=== PATIENT | female | born 1950 | race Caucasian/White ===

== ENCOUNTER 2017-07-08 15:27 | Observation (INO) | payer OTHER, BC ==
[2017-07-08 17:06] LABS: BASOPHILS # (AUTO) 0.1 X10^3/uL (0.0-0.1); BASOPHILS % (AUTO) 0.3 % (0.2-1.0); EOSINOPHILS # (AUTO) 0.3 x10^3/uL (0.0-0.2); EOSINOPHILS % (AUTO) 1.7 % (0.9-2.9); HEMATOCRIT 34.5 % (36.0-47.0); HEMOGLOBIN 11.2 g/dL (12.0-16.0); LYMPHOCYTES # (AUTO) 1.8 X10^3/uL (1.3-2.9); LYMPHOCYTES % (AUTO) 11.4 % (21.0-51.0); MEAN CORPUSCULAR HEMOGLOBIN 25.1 pg (27.0-34.0); MEAN CORPUSCULAR HGB CONC 32.3 g/dL (33.0-35.0); MEAN CORPUSCULAR VOLUME 77.5 fL (80.0-100.0); MEAN PLATELET VOLUME 8.2 fL (7.4-11.0); MONOCYTES # (AUTO) 0.9 x10^3/uL (0.3-0.8); MONOCYTES % (AUTO) 5.8 % (0.0-13.0); NEUTROPHILS % (AUTO) 80.8 % (42.0-75.0); PLATELET COUNT 618 X10^3/uL (150.0-450.0); RED BLOOD COUNT 4.45 X10^6/uL (3.5-5.4); RED CELL DISTRIBUTION WIDTH 16.1 % (11.6-16.5); WHITE BLOOD COUNT 16.1 X10^3/uL (3.6-10.0)
[2017-07-08 17:10] LABS: ALANINE AMINOTRANSFERASE 25 Units/L (12-78); ALBUMIN 3.5 g/dL (3.4-5.0); ALKALINE PHOSPHATASE 110 Units/L (46-116); ASPARTATE AMINO TRANSFERASE 23 Units/L (15-37); BLOOD UREA NITROGEN 14 mg/dL (7-18); CALCIUM 9.4 mg/dL (8.5-10.1); CARBON DIOXIDE 29.6 mmol/L (21-32); CHLORIDE 99 mmol/L (98-107); CREATININE 0.94 mg/dL (0.55-1.02); SODIUM 137 mmol/L (136-145); TOTAL PROTEIN 8.5 g/dL (6.4-8.2); eGFR BLACK RACES > 60 (>60); eGFR NON BLACK RACES > 60 (>60)
[2017-07-08 17:12] LABS: PLATELET MORPHOLOGY COMMENT NORMAL (NORMAL); POIKILOCYTOSIS SLIGHT
[2017-07-08 17:22] LABS: CKMB % 2.2 % (<4); CREATINE KINASE 46 Units/L (26-192); CREATINE KINASE MB < 1.0 ng/mL (0-4.0); TROPONIN I < 0.02 ng/mL (0-1.5)
--- NOTE | 2017-07-08 17:41 | RAD ---
HISTORY: Headache. Dizziness. Chest pain. Study: Chest one view Comparison: January 12, 2015. Findings: The trachea is midline. The cardiac silhouette is unremarkable. The lungs are clear without focal i nfiltrate or effusion. The bony thorax is unremarkable. IMPRESSION: 1. No acute cardiopulmonary disease. Reported By:
[2017-07-08] MEDS ORDERED: AMBIEN PO PRN (18:53)
[2017-07-08] MEDS: PEPCID TAB 20 MG PO SCH (21:51)
[2017-07-08 22:37] LABS: CREATINE KINASE 43 Units/L (26-192)
[2017-07-08 22:39] LABS: CKMB % 2.3 % (<4); CREATINE KINASE MB < 1.0 ng/mL (0-4.0); TROPONIN I < 0.02 ng/mL (0-1.5)
[2017-07-09 05:46] LABS: CHOL/HDL RATIO 4.9 (0.0-5.0); CHOLESTEROL 191 mg/dL (0-200); CKMB % 2.7 % (<4); CREATINE KINASE 37 Units/L (26-192); CREATINE KINASE MB < 1.0 ng/mL (0-4.0); HDL CHOLESTEROL 39 mg/dL (40-60); TRIGLYCERIDES 129 mg/dL (0-150); TROPONIN I < 0.02 ng/mL (0-1.5)
[2017-07-09 07:58] LABS: BASOPHILS # (AUTO) 0.1 X10^3/uL (0.0-0.1); BASOPHILS % (AUTO) 0.5 % (0.2-1.0); EOSINOPHILS # (AUTO) 0.2 x10^3/uL (0.0-0.2); EOSINOPHILS % (AUTO) 2.1 % (0.9-2.9); HEMATOCRIT 29.8 % (36.0-47.0); HEMOGLOBIN 9.6 g/dL (12.0-16.0); LYMPHOCYTES # (AUTO) 2.4 X10^3/uL (1.3-2.9); LYMPHOCYTES % (AUTO) 22.5 % (21.0-51.0); MEAN CORPUSCULAR HEMOGLOBIN 24.8 pg (27.0-34.0); MEAN CORPUSCULAR HGB CONC 32.3 g/dL (33.0-35.0); MEAN CORPUSCULAR VOLUME 76.6 fL (80.0-100.0); MEAN PLATELET VOLUME 8.7 fL (7.4-11.0); MONOCYTES # (AUTO) 0.8 x10^3/uL (0.3-0.8); NEUTROPHILS % (AUTO) 66.9 % (42.0-75.0); PLATELET COUNT 460 X10^3/uL (150.0-450.0); RED BLOOD COUNT 3.89 X10^6/uL (3.5-5.4); WHITE BLOOD COUNT 10.5 X10^3/uL (3.6-10.0)
[2017-07-09 08:05] LABS: ALANINE AMINOTRANSFERASE 22 Units/L (12-78); ALBUMIN 2.9 g/dL (3.4-5.0); ALKALINE PHOSPHATASE 85 Units/L (46-116); ASPARTATE AMINO TRANSFERASE 29 Units/L (15-37); BLOOD UREA NITROGEN 13 mg/dL (7-18); CALCIUM 8.8 mg/dL (8.5-10.1); CARBON DIOXIDE 24.9 mmol/L (21-32); CHLORIDE 102 mmol/L (98-107); COR CA(FOR HYPOALB) 9.7 mg/dL (8.5-10.1); CREATININE 0.73 mg/dL (0.55-1.02); SODIUM 137 mmol/L (136-145); TOTAL PROTEIN 7.2 g/dL (6.4-8.2); eGFR BLACK RACES > 60 (>60); eGFR NON BLACK RACES > 60 (>60)
[2017-07-09 08:15] LABS: HYPOCHROMASIA SLIGHT; PLATELET MORPHOLOGY COMMENT ABNORMAL (NORMAL)
[2017-07-09 08:16] LABS: ANISOCYTOSIS SLIGHT; MICROCYTOSIS SLIGHT
[2017-07-09] MEDS: PEPCID TAB 20 MG PO SCH ×2 (08:20→22:13)
[2017-07-09 14:14] VITALS: BMI 25.5
--- NOTE | 2017-07-09 14:45 | DR.H&P ---
H&P - History & Physical for Day of: H&P Date: 07/08/17 - Chief Complaint Chief Complaint: DIZZINESS, HYPERTENSION, N/V - Allergies Allergies/Adverse Reactions: Allergies Allergy/AdvReac Type Severity Reaction Status Date / Time metoclopramide [From Reglan] Allergy Verified 07/08/17 16:51 Penicillins Allergy Verified 07/08/17 16:51 Sulfa (Sulfonamide Allergy Verified 07/08/17 16:51 Antibiotics) [SULFA] - History of Present Illness History of Present Illness: 67 WF DIRECT ADMIT FROM DR MARINELLI OFFICE WITH CO ELEVATED BP AND DIZZINESS, N/V. PT STATES SHE FEELS WEAK, JUST DONT FEEL RIGHT. PT HAS PMH OF CAD, HTN, OA. PLAN TO ADMIT FOR BP MONITORING, SERIAL CE, EKG - Past Medical History Past Medical History: Angina, Arthritis, Coronary Artery Disease, GERD, Hypertension, Hypothyroidism - Past Surgical History Surgical History: Hysterectomy, Other - Family History Family Medical History: [place], Coronary Artery Disease, Sudden Cardiac , Hypertension - Social History Does patient currently use any type of tobacco product: No Have you used tobacco products in the last 12 months: No Type of Tobacco Use: None How many years tobacco product used: 3 Does any household member use tobacco: No Alcohol Use: None Drug Use: None - Medications Home Medications: Duloxetine HCl 60 mg PO DAILY 07/08/17 [History Confirmed 07/08/17] Zolpidem Tartrate [Zolpidem Tartrate] 10 mg PO HS 07/08/17 [History Confirmed ] Hydrocodone-Acet 7.5 mg/325 mg [NORCO 7.5 MG/325 MG *] 1 tab PO BID PRN [History Confirmed 07/09/17] Lidocaine/Benadryl/Maalox [Magic Mouthwash] 5 ml MT TID PRN 07/09/17 [History Confirmed 07/09/17] - Review of Systems Constitutional: Weakness Eyes: No Symptoms Reported ENT: No Symptoms Reported Respiratory: No Symptoms Reported Cardiovascular: Palpitations Gastrointestinal: Nausea, Vomiting Genitourinary: No Symptoms Reported Musculoskeletal: Back Pain Skin: No Symptoms Reported Neurological: Other (DIZZY) - Physical Exam Vital Signs: Temperature 97.8 F Pulse Rate [Left Radial] 86 Respiratory Rate 20 Blood Pressure [Left Arm] 148/78 Blood Pressure [Right Arm] 130/67 Blood Pressure 179/97 O2 Sat by Pulse Oximetry 93 Oriented: Normal Eyes: Normal Ear: Normal Nose: Normal Throat: Normal Respiratory: RLL Diminished, LLL Diminished Cardiovascular: Normal : Normal Auscultation: Bowel Sounds: Increased Tenderness: RUQ, Epigastric Skin: Normal Musculoskeletal: Back:Lumbar Mood Description: Calm Speech Pattern: Clear - Assessment/Plan (1) Dizziness and giddiness Status: Acute Plan: ADMIT, BP MONITORING. SERIAL EKG'S CE, CXR ON ADMISSION. CTA CAROTID ARTERIES. RESUME HOME MEDS AFTER CONFIRMATION (2) Hypertension Status: Acute (3) Weakness Status: Acute (4) N&V (nausea and vomiting) Status: Acute
[2017-07-09 15:08] LABS: AMYLASE 36 Units/L (25-115); LIPASE 103 Units/L (73-393)
--- NOTE | 2017-07-09 15:32 | CT ---
History: Dizziness and headache Study: CT head without contrast. Sagittal and coronal reformations were provided. Comparison: None Findings: The ventricles and sulci are normal in size and configuration. There is no intracranial hem orrhage or mass or edema and there is no subdural collection of fluid. The calvarium is intact and th e paranasal sinuses and mastoid sinuses are clear. Impression: Negative Reported By:
--- NOTE | 2017-07-09 15:41 | CT ---
History: Dizziness and history of angioplasty Study: CTA of the carotid arteries. Three-dimensional MIPS were displayed in multiple degrees of obli quity. Sagittal and coronal and oblique reformations were provided. Study done before after intraveno us contrast. Findings: There is no abnormal contrast enhancement in the visualized brain. The [place] of [place] is unremarkable. No aneurysm or malformation is demonstrated. The left vertebral artery is dominant. The right common carotid artery is tortuous without stenosis. The left common carotid artery is less tor turous in the right without stenosis. There is mild calcified plaque formation at the origin of the r ight internal carotid artery medially and posteriorly. The left common carotid bifurcation is unremar kable with a tiny calcified plaque. Both internal carotid arteries are tortuous. Impression: 1. Tortuous bilateral internal and common carotid arteries 2. Small calcified plaque at the origin of the right internal carotid artery. No significant stenosis is demonstrated. 3. Patent vertebral arteries, left dominant. Reported By:
[2017-07-09] MEDS: NORCO 7.5/325 MG TAB PO PRN (16:56)
[2017-07-09 17:08] LABS: BILIRUBIN,URINE NEGATIVE (NEGATIVE); BLOOD/HEMOGLOBIN,URINE 2+ (NEGATIVE); GLUCOSE, URINE NEGATIVE (NEGATIVE); KETONES,URINE NEGATIVE (NEGATIVE); LEUKOCYTE ESTERASE ,URINE NEGATIVE (NEGATIVE); NITRITES,URINE NEGATIVE (NEGATIVE); PROTEIN,URINE 2+ (NEGATIVE); UROBILINOGEN,URINE NORMAL (NORMAL)
[2017-07-09 17:26] LABS: APPEARANCE,URINE HAZY (CLEAR); COLOR,URINE YELLOW (YELLOW)
[2017-07-09 17:27] LABS: BACTERIA,URINE NEGATIVE /HPF (NEGATIVE); RBC,URINE 0 - 3 /HPF (NEGATIVE); SQUAMOUS EPITHELIAL CELL,UR NUMEROUS /HPF (NEGATIVE)
--- NOTE | 2017-07-09 22:00 | US ---
Right Upper Quadrant Sonogram Indication: Right upper quadrant pain and vomiting Comparison: None available Technique: Multiple ríos scale and color flow Doppler images of the right upper quadrant were obtaine d. Findings: The liver is normal in echotexture and size. No focal intraparenchymal mass or intrahepatic biliary ductal dilatation can be observed. The gallbladder fails to demonstrate evidence for cholelithiasis or layering sludge.No pericholecysti c fluid or gallbladder wall thickening can be observed. The common bile duct is unremarkable measuring 5mm. The right kidney appears normal in size without focal parenchymal mass or nephrolithiasis. The right kidney measurers 9.6 cm. No hydronephrosis or perirenal fluid can be observed. The pancreatic head and body are unremarkable. IMPRESSION: 1. Unremarkable examination of the right upper quadrant. Reported By:
[2017-07-09] MEDS: COREG TAB 12.5 MG PO SCH (22:13)
[2017-07-10 06:34] LABS: BASOPHILS # (AUTO) 0.1 X10^3/uL (0.0-0.1); BASOPHILS % (AUTO) 0.8 % (0.2-1.0); EOSINOPHILS # (AUTO) 0.2 x10^3/uL (0.0-0.2); EOSINOPHILS % (AUTO) 1.8 % (0.9-2.9); HEMATOCRIT 30.4 % (36.0-47.0); HEMOGLOBIN 9.8 g/dL (12.0-16.0); LYMPHOCYTES # (AUTO) 2.4 X10^3/uL (1.3-2.9); LYMPHOCYTES % (AUTO) 27.2 % (21.0-51.0); MEAN CORPUSCULAR HEMOGLOBIN 24.7 pg (27.0-34.0); MEAN CORPUSCULAR HGB CONC 32.2 g/dL (33.0-35.0); MEAN CORPUSCULAR VOLUME 76.7 fL (80.0-100.0); MEAN PLATELET VOLUME 8.5 fL (7.4-11.0); MONOCYTES # (AUTO) 0.8 x10^3/uL (0.3-0.8); MONOCYTES % (AUTO) 9.1 % (0.0-13.0); NEUTROPHILS # (AUTO) 5.4 x10^3/uL (2.2-4.8); NEUTROPHILS % (AUTO) 61.1 % (42.0-75.0); PLATELET COUNT 428 X10^3/uL (150.0-450.0); RED BLOOD COUNT 3.97 X10^6/uL (3.5-5.4); RED CELL DISTRIBUTION WIDTH 16.1 % (11.6-16.5); WHITE BLOOD COUNT 8.8 X10^3/uL (3.6-10.0)
[2017-07-10 06:49] LABS: ALANINE AMINOTRANSFERASE 22 Units/L (12-78); ALKALINE PHOSPHATASE 84 Units/L (46-116); ASPARTATE AMINO TRANSFERASE 23 Units/L (15-37); BLOOD UREA NITROGEN 16 mg/dL (7-18); CALCIUM 9.1 mg/dL (8.5-10.1); CARBON DIOXIDE 28.3 mmol/L (21-32); CHLORIDE 104 mmol/L (98-107); COR CA(FOR HYPOALB) 9.9 mg/dL (8.5-10.1); CREATININE 0.79 mg/dL (0.55-1.02); SODIUM 139 mmol/L (136-145); TOTAL PROTEIN 7.2 g/dL (6.4-8.2); eGFR BLACK RACES > 60 (>60); eGFR NON BLACK RACES > 60 (>60)
[2017-07-10 06:52] LABS: PLATELET MORPHOLOGY COMMENT NORMAL (NORMAL)
[2017-07-10 06:53] LABS: HYPOCHROMASIA SLIGHT; MICROCYTOSIS SLIGHT
[2017-07-10] MEDS ORDERED: SYNTHROID 25 mcg TAB PO SCH (09:00)
[2017-07-10] MEDS ORDERED: CARDIZEM SR 120 MG PO SCH (09:00)
[2017-07-10] MEDS ORDERED: CYMBALTA PO SCH (09:00)
[2017-07-10] MEDS ORDERED: COZAAR PO SCH (09:00)
[2017-07-10] MEDS ORDERED: ASPIRIN EC 81 MG PO SCH (09:00)
[2017-07-10] MEDS ORDERED: NexIUM PO SCH (09:00)
[2017-07-10] MEDS: PEPCID TAB 20 MG PO SCH (10:41)
[2017-07-10] MEDS: NORCO 7.5/325 MG TAB PO PRN (10:42)
[2017-07-10] MEDS: COREG TAB 12.5 MG PO SCH (10:42)
[2017-07-10 13:27] VITALS: BP 145/72
== END 2017-07-10 16:25 | disposition home or self-care (01) ==
LOC: MED/SURG 15:27
PROVIDERS: ADMIT Internal Medicine; ATTEND Internal Medicine
DX: R42 Dizziness and giddiness (principal); I10 Essential (primary) hypertension; R11.2 Nausea with vomiting, unspecified; I25.10 Atherosclerotic heart disease of native coronary artery without angina pectoris; K21.9 Gastro-esophageal reflux disease without esophagitis; M13.89 Other specified arthritis, multiple sites; R94.31 Abnormal electrocardiogram [ECG] [EKG]; R79.1 Abnormal coagulation profile; D72.828 Other elevated white blood cell count; D64.89 Other specified anemias
CPT/HCPCS: 36415; 70450; 70498; 71045; 76705; 80053; 80061; 81001; 82150; 82550; 82553; 83690; 83735; 84484; 85025; 85610; 85730; 93005; 93010; 94760; A4216; A4222; G0378

== ENCOUNTER → 2017-08-10 | Outpatient (CLI) | payer OTHER ==
--- NOTE | 2017-08-10 12:15 | NM ---
Nuclear medicine HIDA scan with ejection fraction Indication: Abdominal pain Comparison: Ultrasound performed on 07/09/2017 Technique: Multiple scintigraphic images of the abdomen were obtained the intravenous administration of 5.5 mCi of technetium labeled Choletec. Following distention of the gallbladder with radiotracer a 8 oz of oral Ensure was administered. Findings: Homogeneous uptake of radiotracer is seen throughout the liver. This intrabiliary ductal system is o bserved normally. The common hepatic and common bile duct grossly appear unremarkable with normal bi liary-bowel transit. The gallbladder is observed to fill normally. Ejection fraction was 22% after oral administration of Ensure. IMPRESSION: 1. Normal hepatobiliary imaging scan. 2. Decreased gallbladder ejection fraction suggests biliary dyskinesia. Reported By:
== END ==
LOC: RAD 09:11
PROVIDERS: ATTEND Nurse Practitioner Family
DX: R10.84 Generalized abdominal pain (principal)
CPT/HCPCS: 78227; A9537

== ENCOUNTER 2018-01-11 10:40 | Inpatient (IN) ==
[2018-01-11] MEDS ORDERED: CARDIZEM INJ 125 MG VIAL 125 MG in NS 100 ML IV 100 ML IV PRN (11:51)
[2018-01-11 11:53] VITALS: BMI 31.3
--- NOTE | 2018-01-11 11:54 | DR.H&P ---
H&P - History & Physical for Day of: H&P Date: 01/11/18 - Chief Complaint Chief Complaint: sob, weakness, passing out, dizziness - History of Present Illness History of Present Illness: 67 WF DIRECT ADMIT FROM DR MARINELLI OFFICE WITH CO INCREASED SOB, DIZZINESS AND PALPITATIONS. PT WAS PALE AND DIAPHORETIC ON ARRIVAL, EKG REVEALED AFIB RVR RATE 150. PT HAS HX OF AFIB, ON CORGEG, CARDIZEM AND XARELTO. RECENTLY STARTED ON MULTAQ PER DR HOLDEN [employer]ATION DIRECTOR. PT STATES SHE HAS FAINTED MULTPLE TIMES AND "FEELS TERRIBLE" PT HAS PMH OF CAD, OA, HTN, AFIB, [place]. PT ADMITTED FOR TREATMENT AND EVALUATION OF SOB, AFIB WITH RVR - Past Medical History Past Medical History: Angina, Arthritis, Coronary Artery Disease, GERD, Hypertension, Hypothyroidism - Past Surgical History Surgical History: Hysterectomy - Family History Family Medical History: Diabetes Mellitus, Cancer, [place], Hypertension - Social History Does patient currently use any type of tobacco product: No Have you used tobacco products in the last 12 months: No Type of Tobacco Use: Cigarettes How many years tobacco product used: 25 Alcohol Use: None Drug Use: None - Medications Home Medications: metoclopramide [From Reglan] Allergy (Verified 01/11/18 11:33) Penicillins Allergy (Verified 01/11/18 11:33) Sulfa (Sulfonamide Antibiotics) [SULFA] Allergy (Verified 01/11/18 11:33) CONTINUE taking the following medications pantoprazole [Protonix] 1 tab PO DAILY 01/11/18 [History] pravastatin 1 tab PO HS 01/11/18 [History] propafenone 1 tab PO BID 01/11/18 [History] zolpidem [Ambien] 1 tab PO HS 01/11/18 [History] - Review of Systems Constitutional: Weakness Eyes: No Symptoms Reported ENT: No Symptoms Reported Respiratory: SOB with Excertion Cardiovascular: Palpitations, Light Headedness Gastrointestinal: Nausea, Vomiting Genitourinary: No Symptoms Reported Musculoskeletal: Back Pain Skin: No Symptoms Reported Neurological: Weakness - Physical Exam Vital Signs: Temperature 97.2 F Pulse Rate [Apical] 81 Respiratory Rate 15 Blood Pressure [Left Arm] 120/58 Blood Pressure [Right Arm] 132/63 Blood Pressure 152/90 O2 Sat by Pulse Oximetry 99 Oriented: Normal Eyes: Normal Ear: Normal Nose: Normal Throat: Normal Respiratory: RLL Diminished, LLL Diminished Cardiovascular: Tachycardia, Irregular : Normal Auscultation: Bowel Sounds: Normal Palpation: Normal Tenderness: Normal Skin: Diaphoresis Musculoskeletal: Back:Lumbar Psychiatric: Anxiety Affect: Anxious Speech Pattern: Clear, Appropriate - Assessment/Plan (1) Chronic atrial fibrillation with RVR Status: Acute Plan: ADMIT ICU, SERIAL CE AND EKG'S. CONTINUOUS CARDIAC MONITORING. SUPPLEMENTAL O2, CXR ON ADMISSION. VERIFY HOME MEDS, CONTINUE XARELTO. I & OS , STATIN THERAPY, AM LIPIDS. ANEMIA PANEL, OCCULT STOOL (2) Syncope Status: Acute (3) SOB (shortness of breath) Status: Acute (4) Hypertension Status: Chronic (5) Dizziness and giddiness Status: Acute - Allergies Allergies/Adverse Reactions: Allergies Allergy/AdvReac Type Severity Reaction Status Date / Time metoclopramide [From Reglan] Allergy Verified 01/11/18 11:33 Penicillins Allergy Verified 01/11/18 11:33 Sulfa (Sulfonamide Allergy Verified 01/11/18 11:33 Antibiotics) [SULFA]
[2018-01-11 11:57] LABS: BASOPHILS # (AUTO) 0.1 X10^3/uL (0.0-0.1); BASOPHILS % (AUTO) 1.4 % (0.2-1.0); EOSINOPHILS # (AUTO) 0.2 x10^3/uL (0.0-0.2); HEMATOCRIT 29.7 % (36.0-47.0); HEMOGLOBIN 9.7 g/dL (12.0-16.0); LYMPHOCYTES # (AUTO) 1.8 X10^3/uL (1.3-2.9); LYMPHOCYTES % (AUTO) 18.8 % (21.0-51.0); MEAN CORPUSCULAR HEMOGLOBIN 25.3 pg (27.0-34.0); MEAN CORPUSCULAR HGB CONC 32.8 g/dL (33.0-35.0); MEAN CORPUSCULAR VOLUME 77.2 fL (80.0-100.0); MEAN PLATELET VOLUME 8.3 fL (7.4-11.0); MONOCYTES # (AUTO) 0.6 x10^3/uL (0.3-0.8); MONOCYTES % (AUTO) 5.7 % (0.0-13.0); NEUTROPHILS % (AUTO) 72.1 % (42.0-75.0); PLATELET COUNT 593 X10^3/uL (150.0-450.0); RED BLOOD COUNT 3.85 X10^6/uL (3.5-5.4); WHITE BLOOD COUNT 9.7 X10^3/uL (3.6-10.0)
--- NOTE | 2018-01-11 11:57 | RAD ---
HISTORY: Atrial fibrillation, RVR Study: Single-view chest, done portably Comparison: 07/08/2017 Findings: Trachea is midline. Heart size is normal. Lungs and pleural spaces are clear. Osseous structures are intact. IMPRESSION: No acute cardiopulmonary disease. Reported By:
[2018-01-11 12:06] LABS: ALANINE AMINOTRANSFERASE 17 Units/L (12-78); ALBUMIN 3.4 g/dL (3.4-5.0); ALKALINE PHOSPHATASE 93 Units/L (46-116); ASPARTATE AMINO TRANSFERASE 17 Units/L (15-37); BLOOD UREA NITROGEN 15 mg/dL (7-18); CALCIUM 9.3 mg/dL (8.5-10.1); CARBON DIOXIDE 27.7 mmol/L (21-32); CHLORIDE 101 mmol/L (98-107); COR NA(FOR HYPERGLY) 136 mmol/L (136-145); CREATININE 0.91 mg/dL (0.55-1.02); MAGNESIUM 2.1 mg/dL (1.7-2.9); SODIUM 136 mmol/L (136-145); eGFR NON BLACK RACES > 60 (>60)
[2018-01-11 12:08] LABS: PLATELET MORPHOLOGY COMMENT NORMAL (NORMAL)
[2018-01-11 12:35] LABS: CREATINE KINASE 49 Units/L (26-192); CREATINE KINASE MB < 1.0 ng/mL (0-4.0); TROPONIN I < 0.02 ng/mL (0-1.5)
[2018-01-11] MEDS ORDERED: NS 100 ML IV 100 ML IV ONE (13:06)
[2018-01-11] MEDS ORDERED: NS 500 ML IV 500 ML IV ONE (13:07)
[2018-01-11] MEDS: NS 500 ML IV 500 ML IV SCH (13:16)
[2018-01-11] MEDS: PROTONIX INJ 40 MG VIAL IVP SCH (13:47)
[2018-01-11 13:49] LABS: BILIRUBIN,URINE NEGATIVE (NEGATIVE); BLOOD/HEMOGLOBIN,URINE NEGATIVE (NEGATIVE); GLUCOSE, URINE NEGATIVE (NEGATIVE); KETONES,URINE NEGATIVE (NEGATIVE); LEUKOCYTE ESTERASE ,URINE 1+ (NEGATIVE); NITRITES,URINE NEGATIVE (NEGATIVE); PROTEIN,URINE 1+ (NEGATIVE); UROBILINOGEN,URINE NORMAL (NORMAL)
[2018-01-11 13:58] LABS: APPEARANCE,URINE SLIGHTLY HAZY (CLEAR); BACTERIA,URINE TRACE /HPF (NEGATIVE); COLOR,URINE YELLOW (YELLOW); RBC,URINE 0-2 /HPF (NONE SEEN); SQUAMOUS EPITHELIAL CELL,UR MODERATE /HPF (NEGATIVE)
[2018-01-11 13:59] LABS: MUCUS,URINE FEW /HPF (NEGATIVE)
[2018-01-11 17:48] LABS: CKMB % 2.7 % (<4); CREATINE KINASE 37 Units/L (26-192); CREATINE KINASE MB < 1.0 ng/mL (0-4.0); TROPONIN I < 0.02 ng/mL (0-1.5)
[2018-01-11] MEDS ORDERED: ZOFRAN INJ 4 MG VIAL IVP PRN (19:07)
[2018-01-11] MEDS: TYLENOL 325 MG TAB PO PRN (19:27)
[2018-01-11] MEDS: MYLICON TAB 80 MG CHEW PO PRN (20:58)
[2018-01-11] MEDS: AMBIEN PO PRN (20:59)
[2018-01-11] MEDS ORDERED: NEXTERONE IV 360 MG PREMIX* 360 MG/200 ML BAG IV PRN ×2 (22:12)
[2018-01-11] MEDS ORDERED: NEXTERONE IV 150 MG PREMIX* 150 MG/100 ML BAG IV ONE (22:12)
[2018-01-11 22:40] LABS: FREE T4 (FREE THYROXINE) 1.08 ng/dL (0.76-1.46); TSH (3RD GENERATION) 1.693 uIU/mL (0.358-3.74)
[2018-01-11] MEDS: LOPRESSOR TAB 25 MG PO SCH (23:15)
[2018-01-11] MEDS: LANOXIN INJ IVP SCH (23:15)
[2018-01-11 23:55] LABS: CREATINE KINASE 51 Units/L (26-192); CREATINE KINASE MB < 1.0 ng/mL (0-4.0); TROPONIN I < 0.02 ng/mL (0-1.5)
[2018-01-12] MEDS: ULTRAM PO PRN ×2 (01:50→08:09)
[2018-01-12] MEDS: LANOXIN INJ IVP SCH (04:39)
[2018-01-12 05:03] LABS: BASOPHILS # (AUTO) 0.1 X10^3/uL (0.0-0.1); BASOPHILS % (AUTO) 0.8 % (0.2-1.0); EOSINOPHILS # (AUTO) 0.2 x10^3/uL (0.0-0.2); EOSINOPHILS % (AUTO) 2.2 % (0.9-2.9); HEMATOCRIT 24.7 % (36.0-47.0); HEMOGLOBIN 8.1 g/dL (12.0-16.0); LYMPHOCYTES # (AUTO) 2.5 X10^3/uL (1.3-2.9); LYMPHOCYTES % (AUTO) 25.2 % (21.0-51.0); MEAN CORPUSCULAR HEMOGLOBIN 25.3 pg (27.0-34.0); MEAN CORPUSCULAR VOLUME 76.6 fL (80.0-100.0); MEAN PLATELET VOLUME 8.3 fL (7.4-11.0); MONOCYTES # (AUTO) 0.9 x10^3/uL (0.3-0.8); MONOCYTES % (AUTO) 9.3 % (0.0-13.0); NEUTROPHILS # (AUTO) 6.1 x10^3/uL (2.2-4.8); NEUTROPHILS % (AUTO) 62.5 % (42.0-75.0); PLATELET COUNT 450 X10^3/uL (150.0-450.0); RED BLOOD COUNT 3.22 X10^6/uL (3.5-5.4); RED CELL DISTRIBUTION WIDTH 16.7 % (11.6-16.5); WHITE BLOOD COUNT 9.8 X10^3/uL (3.6-10.0)
[2018-01-12 05:20] LABS: ALANINE AMINOTRANSFERASE 15 Units/L (12-78); ALKALINE PHOSPHATASE 76 Units/L (46-116); ASPARTATE AMINO TRANSFERASE 12 Units/L (15-37); BLOOD UREA NITROGEN 14 mg/dL (7-18); CALCIUM 8.6 mg/dL (8.5-10.1); CARBON DIOXIDE 27.4 mmol/L (21-32); CHLORIDE 104 mmol/L (98-107); CHOL/HDL RATIO 5.4 (0.0-5.0); CHOLESTEROL 189 mg/dL (0-200); COR CA(FOR HYPOALB) 9.4 mg/dL (8.5-10.1); CREATININE 0.86 mg/dL (0.55-1.02); HDL CHOLESTEROL 35 mg/dL (40-60); SODIUM 139 mmol/L (136-145); TOTAL PROTEIN 6.8 g/dL (6.4-8.2); TRIGLYCERIDES 238 mg/dL (0-150); eGFR NON BLACK RACES > 60 (>60)
[2018-01-12 06:07] LABS: HYPOCHROMASIA 2+; MICROCYTOSIS 2+; PLATELET MORPHOLOGY COMMENT NORMAL (NORMAL)
[2018-01-12] MEDS: LANOXIN PO SCH (08:53)
[2018-01-12] MEDS: PROTONIX INJ 40 MG VIAL IVP SCH (08:53)
[2018-01-12] MEDS: ASPIRIN EC 81 MG PO SCH (08:53)
[2018-01-12] MEDS: CYMBALTA PO SCH (08:53)
[2018-01-12] MEDS: LOPRESSOR TAB 25 MG PO SCH ×2 (08:55→21:03)
[2018-01-12] MEDS: TYLENOL 325 MG TAB PO PRN (09:47)
--- NOTE | 2018-01-12 09:49 | RAD ---
HISTORY: Shortness of breath Study: Chest AP portable Comparison: 01/11/2018 Findings: The heart is within normal limits in size. The eveline are normal. The lungs are well inflated and clear . No pleural effusions are identified. The bony thorax is unremarkable. There is a hiatal hernia pres ent. IMPRESSION: Lungs clear Hiatal hernia Reported By:
[2018-01-12] MEDS: NS 500 ML IV 500 ML IV SCH (14:05)
[2018-01-12] MEDS: SYNTHROID 25 mcg TAB PO SCH (15:49)
--- NOTE | 2018-01-12 17:03 | PCM.PROG ---
Progress Note - Progress Note for Day of Date of Exam: 01/12/18 - Subjective Subjective: 67 WF DIRECT ADMIT ON 01/11 WITH CO SOB, WEAKNESS, SYNCOPE, PALPITATIONS. PT HAS HX OF AFIB, PT WAS IN AFIB WITH RVR ON ADMISSION. PT RECIEVED IV CARDIZEM. CURRENTLY D/C CARDIZEM, ON AMIODARONE LOADING DOSE, RECEIVED IV DIGOXIN, AND LOPRESSOR. PT CURRENTLY SR THIS AM WITH RATE 60'S. PT CONTINUES TO FEEL WEAKNESS, REPORTS PALPITATIONS IMPROVED. DISCUSSED POSSIBLE EP EVALUATION PER DR VEGA. PLAN TO CONTINUE AMIODARONE ADMINISTRATION PER PROTOCOL, CARDIAC AND BP MONITORING - Past Medical Family Social History Past Med/Fam/Surg Hx: No changes since H&P Allergies: Allergies metoclopramide [From Reglan] Allergy (Verified 01/11/18 11:33) Penicillins Allergy (Verified 01/11/18 11:33) Sulfa (Sulfonamide Antibiotics) [SULFA] Allergy (Verified 01/11/18 11:33) - Review of Systems ROS: No change since H&P - Vital Signs and I&O's Vital Signs: Temperature 97.0 F Pulse Rate [Apical] 63 Pulse Rate 66 Respiratory Rate 19 Blood Pressure [Left Arm] 153/67 Blood Pressure [Right Arm] 132/63 Blood Pressure 152/90 O2 Sat by Pulse Oximetry 100 Intake and Output: Intake & Output 01/10/18 01/11/18 01/12/18 01/13/18 11:59 11:59 11:59 11:59 Intake Total 1630 / 1630 832 / 832 Balance 1630 / 1630 832 / 832 - Physical Exam Oriented: Normal Eyes: Normal Ear: Normal Nose: Normal Throat: Normal Cardiovascular: Normal : Normal Auscultation: Bowel Sounds: Normal Tenderness: Normal Skin: Normal Musculoskeletal: Back:Lumbar Psychiatric: Anxiety Affect: Anxious Speech Pattern: Clear, Appropriate - Laboratory and Diagnostics Result Diagrams: 01/12/18 04:23 01/12/18 04:23 Labs: Laboratory WBC 9.8 X10^3/uL (3.6-10.0) 01/12/18 04:23 RBC 3.22 X10^6/uL (3.5-5.4) L 01/12/18 04:23 Hgb 8.1 g/dL (12.0-16.0) L 01/12/18 04:23 Hct 24.7 % (36.0-47.0) L 01/12/18 04:23 MCV 76.6 fL (80.0-100.0) L 01/12/18 04:23 MCH 25.3 pg (27.0-34.0) L 01/12/18 04:23 MCHC 33.0 g/dL (33.0-35.0) 01/12/18 04:23 RDW 16.7 % (11.6-16.5) H 01/12/18 04:23 Plt Count 450 X10^3/uL (150.0-450.0) 01/12/18 04:23 Plt Count Comment Adequate (ADEQUATE) 01/12/18 04:23 MPV 8.3 fL (7.4-11.0) 01/12/18 04:23 Neut % (Auto) 62.5 % (42.0-75.0) 01/12/18 04:23 Lymph % (Auto) 25.2 % (21.0-51.0) 01/12/18 04:23 [place] % (Auto) 9.3 % (0.0-13.0) 01/12/18 04:23 Eos % (Auto) 2.2 % (0.9-2.9) 01/12/18 04:23 Baso % (Auto) 0.8 % (0.2-1.0) 01/12/18 04:23 Neut # (Auto) 6.1 x10^3/uL (2.2-4.8) H 01/12/18 04:23 Lymph # (Auto) 2.5 X10^3/uL (1.3-2.9) 01/12/18 04:23 [place] # (Auto) 0.9 x10^3/uL (0.3-0.8) H 01/12/18 04:23 Eos # (Auto) 0.2 x10^3/uL (0.0-0.2) 01/12/18 04:23 Baso # (Auto) 0.1 X10^3/uL (0.0-0.1) 01/12/18 04:23 Absolute Nucleated RBC 0.0 /100WBC 01/12/18 04:23 Plt Morphology Comment Normal (NORMAL) 01/12/18 04:23 RBC Morphology Abnormal (NORMAL) A 01/12/18 04:23 Hypochromasia 2+ A 01/12/18 04:23 Microcytosis 2+ A 01/12/18 04:23 INR Target Range - 01/11/18 11:34 INR 1.31 (0.8-1.3) H 01/11/18 11:34 APTT 40.3 SECONDS (22.9-36.5) H 01/11/18 11:34 PTT Comment - 01/11/18 11:34 D-Dimer < 100 ng/mL (0-400) 01/11/18 11:34 Sodium 139 mmol/L (136-145) 01/12/18 04:23 Corrected Sodium TNP 01/12/18 04:23 Potassium 4.4 mmol/L (3.5-5.1) 01/12/18 04:23 Chloride 104 mmol/L (98-107) 01/12/18 04:23 Carbon Dioxide 27.4 mmol/L (21-32) 01/12/18 04:23 BUN 14 mg/dL (7-18) 01/12/18 04:23 Creatinine 0.86 mg/dL (0.55-1.02) 01/12/18 04:23 Est GFR (MDRD) Af Amer > 60 (>60) 01/12/18 04:23 Est GFR (MDRD) Non-Af > 60 (>60) 01/12/18 04:23 Glucose 92 mg/dL (65-99) 01/12/18 04:23 Calcium 8.6 mg/dL (8.5-10.1) 01/12/18 04:23 Corrected Calcium 9.4 mg/dL (8.5-10.1) 01/12/18 04:23 Magnesium 2.1 mg/dL (1.7-2.9) 01/11/18 11:34 Iron 23 ug/dL (50-175) L 01/11/18 11:34 Transferrin 434 mg/dL (202-364) H 01/11/18 11:34 Ferritin 5 ng/mL (8-252) L 01/11/18 11:34 Total Bilirubin 0.20 mg/dL (0.2-1.0) 01/12/18 04:23 AST 12 Units/L (15-37) L 01/12/18 04:23 ALT 15 Units/L (12-78) 01/12/18 04:23 Alkaline Phosphatase 76 Units/L (46-116) 01/12/18 04:23 Creatine Kinase 51 Units/L (26-192) 01/11/18 23:25 CK-MB (CK-2) < 1.0 ng/mL (0-4.0) 01/11/18 23:25 CK/CKMB % Calc 2.0 % (<4) 01/11/18 23:25 Troponin I < 0.02 ng/mL (0-1.5) 01/11/18 23:25 Total Protein 6.8 g/dL (6.4-8.2) 01/12/18 04:23 Albumin 3.0 g/dL (3.4-5.0) L 01/12/18 04:23 Globulin 3.8 g/dL (2.5-4.5) 01/12/18 04:23 Albumin/Globulin Ratio 0.8 Ratio (1.1-2.1) L 01/12/18 04:23 Triglycerides 238 mg/dL (0-150) H 01/12/18 04:23 Cholesterol 189 mg/dL (0-200) 01/12/18 04:23 LDL Cholesterol, Calc 106 mg/dL (0-100) H 01/12/18 04:23 HDL Cholesterol 35 mg/dL (40-60) L 01/12/18 04:23 Cholesterol/HDL Ratio 5.4 (0.0-5.0) H 01/12/18 04:23 Vitamin B12 555 pg/mL (193-986) 01/11/18 11:34 Folate 16.0 ng/mL (>8.6) 01/11/18 11:34 Free T4 1.08 ng/dL (0.76-1.46) 01/11/18 16:48 TSH 3rd Generation 1.693 uIU/mL (0.358-3.74) 01/11/18 16:48 Specimen Type Clean catch urine 01/11/18 13:40 Urine Color Yellow (YELLOW) 01/11/18 13:40 Urine Appearance Slightly hazy (CLEAR) 01/11/18 13:40 Urine pH 6.0 (5.0 - 8.0) 01/11/18 13:40 Ur Specific [place] 1.010 (1.000-1.030) 01/11/18 13:40 Urine Protein 1+ (NEGATIVE) 01/11/18 13:40 Urine Glucose (UA) Negative (NEGATIVE) 01/11/18 13:40 Urine Ketones Negative (NEGATIVE) 01/11/18 13:40 Urine Occult Blood Negative (NEGATIVE) 01/11/18 13:40 Urine Nitrite Negative (NEGATIVE) 01/11/18 13:40 Urine Bilirubin Negative (NEGATIVE) 01/11/18 13:40 Urine Urobilinogen Normal (NORMAL) 01/11/18 13:40 Ur Leukocyte Esterase 1+ (NEGATIVE) 01/11/18 13:40 Urine RBC 0-2 /HPF (NONE SEEN) 01/11/18 13:40 Urine WBC 3-5 /HPF (NONE SEEN) 01/11/18 13:40 Ur Squamous Epith Cells Moderate /HPF (NEGATIVE) 01/11/18 13:40 Urine Bacteria Trace /HPF (NEGATIVE) 01/11/18 13:40 Urine Mucus Few /HPF (NEGATIVE) 01/11/18 13:40 Ur Culture Indicated? No/not indicated 01/11/18 13:40 Stool Description Fob tube 01/11/18 23:23 Stl Occult Blood (IFOB) Negative (NEGATIVE) 01/11/18 23:23 - Plan (1) Chronic atrial fibrillation with RVR Status: Acute Plan: SERIAL CE AND EKG'S ON ADMISSION, CURRENTLY ON IV AMIODARONE LOADING DOSE. CONTINUOUS CARDIAC MONITORING. SUPPLEMENTAL O2, CXR ON ADMISSION. VERIFY HOME MEDS, CONTINUE XARELTO. I & OS, STATIN THERAPY (2) Syncope Status: Acute (3) SOB (shortness of breath) Status: Acute (4) Hypertension Status: Chronic (5) Dizziness and giddiness Status: Acute
[2018-01-12] MEDS: PRAVACHOL PO SCH (21:03)
[2018-01-12] MEDS: XARELTO PO SCH (21:04)
[2018-01-12] MEDS: AMBIEN PO PRN (21:04)
[2018-01-13] MEDS: TYLENOL 325 MG TAB PO PRN ×2 (05:23→22:42)
[2018-01-13 05:27] LABS: BASOPHILS # (AUTO) 0.1 X10^3/uL (0.0-0.1); BASOPHILS % (AUTO) 1.4 % (0.2-1.0); EOSINOPHILS # (AUTO) 0.4 x10^3/uL (0.0-0.2); EOSINOPHILS % (AUTO) 3.3 % (0.9-2.9); HEMATOCRIT 26.8 % (36.0-47.0); HEMOGLOBIN 8.8 g/dL (12.0-16.0); LYMPHOCYTES # (AUTO) 2.1 X10^3/uL (1.3-2.9); LYMPHOCYTES % (AUTO) 19.7 % (21.0-51.0); MEAN CORPUSCULAR HEMOGLOBIN 25.3 pg (27.0-34.0); MEAN CORPUSCULAR HGB CONC 32.8 g/dL (33.0-35.0); MEAN CORPUSCULAR VOLUME 77.1 fL (80.0-100.0); MEAN PLATELET VOLUME 7.9 fL (7.4-11.0); MONOCYTES # (AUTO) 0.8 x10^3/uL (0.3-0.8); MONOCYTES % (AUTO) 7.8 % (0.0-13.0); NEUTROPHILS # (AUTO) 7.1 x10^3/uL (2.2-4.8); NEUTROPHILS % (AUTO) 67.8 % (42.0-75.0); PLATELET COUNT 484 X10^3/uL (150.0-450.0); RED BLOOD COUNT 3.48 X10^6/uL (3.5-5.4); RED CELL DISTRIBUTION WIDTH 16.5 % (11.6-16.5); WHITE BLOOD COUNT 10.5 X10^3/uL (3.6-10.0)
[2018-01-13 05:44] LABS: ALANINE AMINOTRANSFERASE 16 Units/L (12-78); ALBUMIN 3.1 g/dL (3.4-5.0); ALKALINE PHOSPHATASE 83 Units/L (46-116); ASPARTATE AMINO TRANSFERASE 13 Units/L (15-37); BLOOD UREA NITROGEN 12 mg/dL (7-18); CARBON DIOXIDE 28.4 mmol/L (21-32); CHLORIDE 104 mmol/L (98-107); COR CA(FOR HYPOALB) 9.7 mg/dL (8.5-10.1); CREATININE 0.85 mg/dL (0.55-1.02); SODIUM 140 mmol/L (136-145); TOTAL PROTEIN 7.3 g/dL (6.4-8.2); eGFR NON BLACK RACES > 60 (>60)
[2018-01-13 06:11] LABS: PLATELET MORPHOLOGY COMMENT NORMAL (NORMAL)
[2018-01-13 06:12] LABS: ANISOCYTOSIS SLIGHT; HYPOCHROMASIA SLIGHT; MICROCYTOSIS SLIGHT; POIKILOCYTOSIS SLIGHT
[2018-01-13] MEDS ORDERED: AYR NASAL DROPS PRN (08:43)
[2018-01-13] MEDS: ASPIRIN EC 81 MG PO SCH (08:49)
[2018-01-13] MEDS: CORDARONE TAB 200 MG PO SCH (08:49)
[2018-01-13] MEDS: CYMBALTA PO SCH (08:53)
[2018-01-13] MEDS: LANOXIN PO SCH (08:53)
[2018-01-13] MEDS: PROTONIX INJ 40 MG VIAL IVP SCH (08:55)
[2018-01-13] MEDS: LOPRESSOR TAB 25 MG PO SCH ×2 (08:55→20:06)
[2018-01-13] MEDS ORDERED: PHARMACY CONSULT - DOSE _____ XX SCH (09:00)
[2018-01-13] MEDS ORDERED: NS 100 ML IV 100 ML with VENOFER 400 MG IV NR ×2 (10:00)
[2018-01-13] MEDS: NS 500 ML IV 500 ML IV SCH (15:35)
[2018-01-13] MEDS: SYNTHROID 25 mcg TAB PO SCH (15:35)
[2018-01-13] MEDS: CLARITIN PO SCH (16:35)
--- NOTE | 2018-01-13 17:49 | PCM.PROG ---
Progress Note - Progress Note for Day of Date of Exam: 01/13/18 - Subjective Subjective: 67 WF DIRECT ADMIT ON 01/11 WITH CO SOB, WEAKNESS, SYNCOPE, PALPITATIONS. PT HAS HX OF AFIB, PT WAS IN AFIB WITH RVR ON ADMISSION. PT RECIEVED IV CARDIZEM. CURRENTLY D/C CARDIZEM, ON AMIODARONE LOADING DOSE, RECEIVED IV DIGOXIN, AND LOPRESSOR. PT CURRENTLY SR THIS AM WITH RATE 60'S. PT CONTINUES TO FEEL WEAKNESS, REPORTS PALPITATIONS IMPROVED. DISCUSSED POSSIBLE EP EVALUATION PER DR VEGA. PLAN TO CONTINUE AMIODARONE ADMINISTRATION PER PROTOCOL, CARDIAC AND BP MONITORING. LAST HEART CATH IN 2013, STRESS TEST 09/29 REPORT ON CHART. - Past Medical Family Social History Past Med/Fam/Surg Hx: No changes since H&P Allergies: Allergies metoclopramide [From Reglan] Allergy (Verified 01/11/18 11:33) Penicillins Allergy (Verified 01/11/18 11:33) Sulfa (Sulfonamide Antibiotics) [SULFA] Allergy (Verified 01/11/18 11:33) - Review of Systems ROS: No change since H&P - Vital Signs and I&O's Vital Signs: Temperature 98.1 F Pulse Rate [Apical] 62 Pulse Rate 70 Respiratory Rate 16 Blood Pressure [Left Arm] 188/83 Blood Pressure [Right Arm] 132/63 Blood Pressure 152/90 O2 Sat by Pulse Oximetry 95 Intake and Output: Intake & Output 01/11/18 01/12/18 01/13/18 01/14/18 11:59 11:59 11:59 11:59 Intake Total 1630 / 1630 2345 / 2345 890 / 890 Output Total 500 / 500 Balance 1630 / 1630 1845 / 1845 890 / 890 - Physical Exam Oriented: Normal Eyes: Normal Ear: Normal Nose: Normal Throat: Normal Respiratory: Diminished Cardiovascular: Normal : Normal Auscultation: Bowel Sounds: Normal Tenderness: Normal Skin: Normal Musculoskeletal: Back:Lumbar Psychiatric: Anxiety Affect: Anxious Speech Pattern: Clear, Appropriate - Laboratory and Diagnostics Result Diagrams: 01/13/18 05:07 01/13/18 05:07 Labs: Laboratory WBC 10.5 X10^3/uL (3.6-10.0) H 01/13/18 05:07 RBC 3.48 X10^6/uL (3.5-5.4) L 01/13/18 05:07 Hgb 8.8 g/dL (12.0-16.0) L 01/13/18 05:07 Hct 26.8 % (36.0-47.0) L 01/13/18 05:07 MCV 77.1 fL (80.0-100.0) L 01/13/18 05:07 MCH 25.3 pg (27.0-34.0) L 01/13/18 05:07 MCHC 32.8 g/dL (33.0-35.0) L 01/13/18 05:07 RDW 16.5 % (11.6-16.5) 01/13/18 05:07 Plt Count 484 X10^3/uL (150.0-450.0) H 01/13/18 05:07 Plt Count Comment Adequate (ADEQUATE) 01/13/18 05:07 MPV 7.9 fL (7.4-11.0) 01/13/18 05:07 Neut % (Auto) 67.8 % (42.0-75.0) 01/13/18 05:07 Lymph % (Auto) 19.7 % (21.0-51.0) L 01/13/18 05:07 [place] % (Auto) 7.8 % (0.0-13.0) 01/13/18 05:07 Eos % (Auto) 3.3 % (0.9-2.9) H 01/13/18 05:07 Baso % (Auto) 1.4 % (0.2-1.0) H 01/13/18 05:07 Neut # (Auto) 7.1 x10^3/uL (2.2-4.8) H 01/13/18 05:07 Lymph # (Auto) 2.1 X10^3/uL (1.3-2.9) 01/13/18 05:07 [place] # (Auto) 0.8 x10^3/uL (0.3-0.8) 01/13/18 05:07 Eos # (Auto) 0.4 x10^3/uL (0.0-0.2) H 01/13/18 05:07 Baso # (Auto) 0.1 X10^3/uL (0.0-0.1) 01/13/18 05:07 Absolute Nucleated RBC 0.0 /100WBC 01/13/18 05:07 Plt Morphology Comment Normal (NORMAL) 01/13/18 05:07 RBC Morphology Abnormal (NORMAL) A 01/13/18 05:07 Hypochromasia Slight A 01/13/18 05:07 Poikilocytosis Slight A 01/13/18 05:07 Anisocytosis Slight A 01/13/18 05:07 Microcytosis Slight A 01/13/18 05:07 INR Target Range - 01/11/18 11:34 INR 1.31 (0.8-1.3) H 01/11/18 11:34 APTT 40.3 SECONDS (22.9-36.5) H 01/11/18 11:34 PTT Comment - 01/11/18 11:34 D-Dimer < 100 ng/mL (0-400) 01/11/18 11:34 Sodium 140 mmol/L (136-145) 01/13/18 05:07 Corrected Sodium TNP 01/13/18 05:07 Potassium 4.3 mmol/L (3.5-5.1) 01/13/18 05:07 Chloride 104 mmol/L (98-107) 01/13/18 05:07 Carbon Dioxide 28.4 mmol/L (21-32) 01/13/18 05:07 BUN 12 mg/dL (7-18) 01/13/18 05:07 Creatinine 0.85 mg/dL (0.55-1.02) 01/13/18 05:07 Est GFR (MDRD) Af Amer > 60 (>60) 01/13/18 05:07 Est GFR (MDRD) Non-Af > 60 (>60) 01/13/18 05:07 Glucose 95 mg/dL (65-99) 01/13/18 05:07 Calcium 9.0 mg/dL (8.5-10.1) 01/13/18 05:07 Corrected Calcium 9.7 mg/dL (8.5-10.1) 01/13/18 05:07 Magnesium 2.1 mg/dL (1.7-2.9) 01/11/18 11:34 Iron 23 ug/dL (50-175) L 01/11/18 11:34 Transferrin 434 mg/dL (202-364) H 01/11/18 11:34 Ferritin 5 ng/mL (8-252) L 01/11/18 11:34 Total Bilirubin 0.20 mg/dL (0.2-1.0) 01/13/18 05:07 AST 13 Units/L (15-37) L 01/13/18 05:07 ALT 16 Units/L (12-78) 01/13/18 05:07 Alkaline Phosphatase 83 Units/L (46-116) 01/13/18 05:07 Creatine Kinase 51 Units/L (26-192) 01/11/18 23:25 CK-MB (CK-2) < 1.0 ng/mL (0-4.0) 01/11/18 23:25 CK/CKMB % Calc 2.0 % (<4) 01/11/18 23:25 Troponin I < 0.02 ng/mL (0-1.5) 01/11/18 23:25 Total Protein 7.3 g/dL (6.4-8.2) 01/13/18 05:07 Albumin 3.1 g/dL (3.4-5.0) L 01/13/18 05:07 Globulin 4.2 g/dL (2.5-4.5) 01/13/18 05:07 Albumin/Globulin Ratio 0.7 Ratio (1.1-2.1) L 01/13/18 05:07 Triglycerides 238 mg/dL (0-150) H 01/12/18 04:23 Cholesterol 189 mg/dL (0-200) 01/12/18 04:23 LDL Cholesterol, Calc 106 mg/dL (0-100) H 01/12/18 04:23 HDL Cholesterol 35 mg/dL (40-60) L 01/12/18 04:23 Cholesterol/HDL Ratio 5.4 (0.0-5.0) H 01/12/18 04:23 Vitamin B12 555 pg/mL (193-986) 01/11/18 11:34 Folate 16.0 ng/mL (>8.6) 01/11/18 11:34 Free T4 1.08 ng/dL (0.76-1.46) 01/11/18 16:48 TSH 3rd Generation 1.693 uIU/mL (0.358-3.74) 01/11/18 16:48 Specimen Type Clean catch urine 01/11/18 13:40 Urine Color Yellow (YELLOW) 01/11/18 13:40 Urine Appearance Slightly hazy (CLEAR) 01/11/18 13:40 Urine pH 6.0 (5.0 - 8.0) 01/11/18 13:40 Ur Specific [place] 1.010 (1.000-1.030) 01/11/18 13:40 Urine Protein 1+ (NEGATIVE) 01/11/18 13:40 Urine Glucose (UA) Negative (NEGATIVE) 01/11/18 13:40 Urine Ketones Negative (NEGATIVE) 01/11/18 13:40 Urine Occult Blood Negative (NEGATIVE) 01/11/18 13:40 Urine Nitrite Negative (NEGATIVE) 01/11/18 13:40 Urine Bilirubin Negative (NEGATIVE) 01/11/18 13:40 Urine Urobilinogen Normal (NORMAL) 01/11/18 13:40 Ur Leukocyte Esterase 1+ (NEGATIVE) 01/11/18 13:40 Urine RBC 0-2 /HPF (NONE SEEN) 01/11/18 13:40 Urine WBC 3-5 /HPF (NONE SEEN) 01/11/18 13:40 Ur Squamous Epith Cells Moderate /HPF (NEGATIVE) 01/11/18 13:40 Urine Bacteria Trace /HPF (NEGATIVE) 01/11/18 13:40 Urine Mucus Few /HPF (NEGATIVE) 01/11/18 13:40 Ur Culture Indicated? No/not indicated 01/11/18 13:40 Stool Description Fob tube 01/11/18 23:23 Stl Occult Blood (IFOB) Negative (NEGATIVE) 01/11/18 23:23 Digoxin 0.56 ng/mL (0.9-2) L 01/13/18 05:07 - Plan (1) Chronic atrial fibrillation with RVR Status: Acute Plan: SERIAL CE AND EKG'S ON ADMISSION, CURRENTLY ON IV AMIODARONE LOADING DOSE. CONTINUOUS CARDIAC MONITORING. SUPPLEMENTAL O2, CXR ON ADMISSION. VERIFY HOME MEDS, CONTINUE XARELTO. I & OS, STATIN THERAPY (2) Syncope Status: Acute (3) SOB (shortness of breath) Status: Acute (4) Hypertension Status: Chronic (5) Dizziness and giddiness Status: Acute
[2018-01-13] MEDS: MYLICON TAB 80 MG CHEW PO PRN (19:12)
[2018-01-13] MEDS ORDERED: MILK OF MAGNESIA PO SCH (21:00)
[2018-01-13] MEDS ORDERED: COLACE CAP 100 MG PO SCH (21:00)
[2018-01-13] MEDS: AMBIEN PO PRN (21:12)
[2018-01-13] MEDS: PRAVACHOL PO SCH (21:12)
[2018-01-13] MEDS: XARELTO PO SCH (21:12)
[2018-01-13] MEDS ORDERED: NORMODYNE INJ 20 MG VIAL IVP PRN (22:05)
[2018-01-13] MEDS ORDERED: NORMODYNE INJ 100 MG VIAL ONE (22:10)
[2018-01-14 05:35] LABS: BASOPHILS # (AUTO) 0.1 X10^3/uL (0.0-0.1); BASOPHILS % (AUTO) 1.3 % (0.2-1.0); EOSINOPHILS # (AUTO) 0.3 x10^3/uL (0.0-0.2); EOSINOPHILS % (AUTO) 2.9 % (0.9-2.9); HEMATOCRIT 26.8 % (36.0-47.0); HEMOGLOBIN 8.8 g/dL (12.0-16.0); LYMPHOCYTES % (AUTO) 18.5 % (21.0-51.0); MEAN CORPUSCULAR HEMOGLOBIN 25.1 pg (27.0-34.0); MEAN CORPUSCULAR VOLUME 76.1 fL (80.0-100.0); MEAN PLATELET VOLUME 8.1 fL (7.4-11.0); MONOCYTES # (AUTO) 0.9 x10^3/uL (0.3-0.8); MONOCYTES % (AUTO) 8.3 % (0.0-13.0); NEUTROPHILS # (AUTO) 7.3 x10^3/uL (2.2-4.8); PLATELET COUNT 472 X10^3/uL (150.0-450.0); RED BLOOD COUNT 3.52 X10^6/uL (3.5-5.4); RED CELL DISTRIBUTION WIDTH 16.6 % (11.6-16.5); WHITE BLOOD COUNT 10.6 X10^3/uL (3.6-10.0)
[2018-01-14 06:04] LABS: ALANINE AMINOTRANSFERASE 17 Units/L (12-78); ALBUMIN 3.1 g/dL (3.4-5.0); ALKALINE PHOSPHATASE 88 Units/L (46-116); ASPARTATE AMINO TRANSFERASE 13 Units/L (15-37); BLOOD UREA NITROGEN 12 mg/dL (7-18); CALCIUM 8.8 mg/dL (8.5-10.1); CARBON DIOXIDE 27.7 mmol/L (21-32); CHLORIDE 105 mmol/L (98-107); COR CA(FOR HYPOALB) 9.5 mg/dL (8.5-10.1); CREATININE 0.79 mg/dL (0.55-1.02); SODIUM 141 mmol/L (136-145); TOTAL PROTEIN 7.3 g/dL (6.4-8.2); eGFR NON BLACK RACES > 60 (>60)
[2018-01-14 06:18] LABS: PLATELET MORPHOLOGY COMMENT NORMAL (NORMAL)
[2018-01-14 06:19] LABS: ANISOCYTOSIS SLIGHT; HYPOCHROMASIA SLIGHT
--- NOTE | 2018-01-14 09:09 | RAD ---
. Examination: Portable AP chest History: None available Comparison reference 01/12/2018 Findings: Continued normal heart size with essentially clear lungs and pleural spaces. Hiatal hernia is again noted. Impression: No change or acute findings. Reported By:
[2018-01-14] MEDS: ASPIRIN EC 81 MG PO SCH (09:41)
[2018-01-14] MEDS: PROTONIX INJ 40 MG VIAL IVP SCH (09:41)
[2018-01-14] MEDS: CLARITIN PO SCH (09:42)
[2018-01-14] MEDS: LOPRESSOR TAB 25 MG PO SCH (09:42)
[2018-01-14] MEDS: LANOXIN PO SCH (09:43)
[2018-01-14] MEDS: CORDARONE TAB 200 MG PO SCH (09:44)
[2018-01-14] MEDS ORDERED: XANAX PO ONE (09:53)
[2018-01-14] MEDS ORDERED: PEPCID 20 MG IV PREMIX* 20 MG/50 ML BAG IV ONE (09:54)
[2018-01-14] MEDS ORDERED: ZOFRAN INJ 4 MG VIAL IVP ONE (09:55)
[2018-01-14 10:45] VITALS: BP 163/76
[2018-01-14] MEDS: CYMBALTA PO SCH (11:00)
--- NOTE | 2018-01-23 21:42 | PCM.DCPLAN ---
Discharge Summary - Admission Date Date of Admission: 01/11/18 - Discharge Date Discharge Date: 01/14/18 - Admission Diagnoses (1) Chronic atrial fibrillation with RVR Status: Acute (2) Weakness Status: Acute (3) Hypertension Status: Chronic (4) Syncope Status: Acute - Discharge Diagnoses Discharge Diagnosis: SAME ADMISSION DIAGNOSIS - Discharge Medications Discharge Medications: Home Medication List pantoprazole [Protonix] 1 tab PO DAILY 01/11/18 [History] pravastatin 1 tab PO HS 01/11/18 [History] propafenone 1 tab PO BID 01/11/18 [History] zolpidem [Ambien] 1 tab PO HS 01/11/18 [History] Prescriptions: - Hospital Course Vital Signs: Temperature 98.0 F Pulse Rate [Apical] 70 Pulse Rate 72 Respiratory Rate 22 Blood Pressure [Left Arm] 163/76 Blood Pressure [Right Arm] 132/63 Blood Pressure 152/90 O2 Sat by Pulse Oximetry 97 Latest Lab Results: Laboratory Last Values WBC 10.6 X10^3/uL (3.6-10.0) H 01/14/18 05:12 RBC 3.52 X10^6/uL (3.5-5.4) 01/14/18 05:12 Hgb 8.8 g/dL (12.0-16.0) L 01/14/18 05:12 Hct 26.8 % (36.0-47.0) L 01/14/18 05:12 MCV 76.1 fL (80.0-100.0) L 01/14/18 05:12 MCH 25.1 pg (27.0-34.0) L 01/14/18 05:12 MCHC 33.0 g/dL (33.0-35.0) 01/14/18 05:12 RDW 16.6 % (11.6-16.5) H 01/14/18 05:12 Plt Count 472 X10^3/uL (150.0-450.0) H 01/14/18 05:12 Plt Count Comment Adequate (ADEQUATE) 01/14/18 05:12 MPV 8.1 fL (7.4-11.0) 01/14/18 05:12 Neut % (Auto) 69.0 % (42.0-75.0) 01/14/18 05:12 Lymph % (Auto) 18.5 % (21.0-51.0) L 01/14/18 05:12 [place] % (Auto) 8.3 % (0.0-13.0) 01/14/18 05:12 Eos % (Auto) 2.9 % (0.9-2.9) 01/14/18 05:12 Baso % (Auto) 1.3 % (0.2-1.0) H 01/14/18 05:12 Neut # (Auto) 7.3 x10^3/uL (2.2-4.8) H 01/14/18 05:12 Lymph # (Auto) 2.0 X10^3/uL (1.3-2.9) 01/14/18 05:12 [place] # (Auto) 0.9 x10^3/uL (0.3-0.8) H 01/14/18 05:12 Eos # (Auto) 0.3 x10^3/uL (0.0-0.2) H 01/14/18 05:12 Baso # (Auto) 0.1 X10^3/uL (0.0-0.1) 01/14/18 05:12 Absolute Nucleated RBC 0.0 /100WBC 01/14/18 05:12 Plt Morphology Comment Normal (NORMAL) 01/14/18 05:12 RBC Morphology Abnormal (NORMAL) A 01/14/18 05:12 Hypochromasia Slight A 01/14/18 05:12 Poikilocytosis Slight A 01/13/18 05:07 Anisocytosis Slight A 01/14/18 05:12 Microcytosis Slight A 01/13/18 05:07 INR Target Range - 01/11/18 11:34 INR 1.31 (0.8-1.3) H 01/11/18 11:34 APTT 40.3 SECONDS (22.9-36.5) H 01/11/18 11:34 PTT Comment - 01/11/18 11:34 D-Dimer < 100 ng/mL (0-400) 01/11/18 11:34 Sodium 141 mmol/L (136-145) 01/14/18 05:12 Corrected Sodium TNP 01/14/18 05:12 Potassium 3.7 mmol/L (3.5-5.1) 01/14/18 05:12 Chloride 105 mmol/L (98-107) 01/14/18 05:12 Carbon Dioxide 27.7 mmol/L (21-32) 01/14/18 05:12 BUN 12 mg/dL (7-18) 01/14/18 05:12 Creatinine 0.79 mg/dL (0.55-1.02) 01/14/18 05:12 Est GFR (MDRD) Af Amer > 60 (>60) 01/14/18 05:12 Est GFR (MDRD) Non-Af > 60 (>60) 01/14/18 05:12 Glucose 88 mg/dL (65-99) 01/14/18 05:12 Calcium 8.8 mg/dL (8.5-10.1) 01/14/18 05:12 Corrected Calcium 9.5 mg/dL (8.5-10.1) 01/14/18 05:12 Magnesium 2.1 mg/dL (1.7-2.9) 01/11/18 11:34 Iron 23 ug/dL (50-175) L 01/11/18 11:34 Transferrin 434 mg/dL (202-364) H 01/11/18 11:34 Ferritin 5 ng/mL (8-252) L 01/11/18 11:34 Total Bilirubin 0.10 mg/dL (0.2-1.0) L 01/14/18 05:12 AST 13 Units/L (15-37) L 01/14/18 05:12 ALT 17 Units/L (12-78) 01/14/18 05:12 Alkaline Phosphatase 88 Units/L (46-116) 01/14/18 05:12 Creatine Kinase 51 Units/L (26-192) 01/11/18 23:25 CK-MB (CK-2) < 1.0 ng/mL (0-4.0) 01/11/18 23:25 CK/CKMB % Calc 2.0 % (<4) 01/11/18 23:25 Troponin I < 0.02 ng/mL (0-1.5) 01/11/18 23:25 Total Protein 7.3 g/dL (6.4-8.2) 01/14/18 05:12 Albumin 3.1 g/dL (3.4-5.0) L 01/14/18 05:12 Globulin 4.2 g/dL (2.5-4.5) 01/14/18 05:12 Albumin/Globulin Ratio 0.7 Ratio (1.1-2.1) L 01/14/18 05:12 Triglycerides 238 mg/dL (0-150) H 01/12/18 04:23 Cholesterol 189 mg/dL (0-200) 01/12/18 04:23 LDL Cholesterol, Calc 106 mg/dL (0-100) H 01/12/18 04:23 HDL Cholesterol 35 mg/dL (40-60) L 01/12/18 04:23 Cholesterol/HDL Ratio 5.4 (0.0-5.0) H 01/12/18 04:23 Vitamin B12 555 pg/mL (193-986) 01/11/18 11:34 Folate 16.0 ng/mL (>8.6) 01/11/18 11:34 Free T4 1.08 ng/dL (0.76-1.46) 01/11/18 16:48 TSH 3rd Generation 1.693 uIU/mL (0.358-3.74) 01/11/18 16:48 Specimen Type Clean catch urine 01/11/18 13:40 Urine Color Yellow (YELLOW) 01/11/18 13:40 Urine Appearance Slightly hazy (CLEAR) 01/11/18 13:40 Urine pH 6.0 (5.0 - 8.0) 01/11/18 13:40 Ur Specific [place] 1.010 (1.000-1.030) 01/11/18 13:40 Urine Protein 1+ (NEGATIVE) 01/11/18 13:40 Urine Glucose (UA) Negative (NEGATIVE) 01/11/18 13:40 Urine Ketones Negative (NEGATIVE) 01/11/18 13:40 Urine Occult Blood Negative (NEGATIVE) 01/11/18 13:40 Urine Nitrite Negative (NEGATIVE) 01/11/18 13:40 Urine Bilirubin Negative (NEGATIVE) 01/11/18 13:40 Urine Urobilinogen Normal (NORMAL) 01/11/18 13:40 Ur Leukocyte Esterase 1+ (NEGATIVE) 01/11/18 13:40 Urine RBC 0-2 /HPF (NONE SEEN) 01/11/18 13:40 Urine WBC 3-5 /HPF (NONE SEEN) 01/11/18 13:40 Ur Squamous Epith Cells Moderate /HPF (NEGATIVE) 01/11/18 13:40 Urine Bacteria Trace /HPF (NEGATIVE) 01/11/18 13:40 Urine Mucus Few /HPF (NEGATIVE) 01/11/18 13:40 Ur Culture Indicated? No/not indicated 01/11/18 13:40 Stool Description Fob tube 01/11/18 23:23 Stl Occult Blood (IFOB) Negative (NEGATIVE) 01/11/18 23:23 Digoxin 0.56 ng/mL (0.9-2) L 01/13/18 05:07 Hospital Course: 67 WF DIRECT ADMIT ON 01/11 WITH CO SOB, WEAKNESS, SYNCOPE, PALPITATIONS. PT HAS HX OF AFIB, PT WAS IN AFIB WITH RVR ON ADMISSION. PT RECIEVED IV CARDIZEM. STARTED ON AMIODARONE, RECEIVED IV DIGOXIN, AND LOPRESSOR. PT CURRENTLY SR WITH RATE 60'S. PT CONTINUES TO FEEL WEAKNESS, REPORTS PALPITATIONS IMPROVED. DISCUSSED POSSIBLE EP EVALUATION PER DR VEGA. LAST HEART CATH IN 2013, STRESS TEST 09/29 REPORT ON CHART. PATIENT WAS TRANSFERRED FOR FURTHER CARDIAC EVALUATION. - Discharge Plan Disposition: XF [facility] HOS[facility] Condition: Stable - Follow ups/Referrals Follow ups/Referrals: SHANNAN PATTERSON [Primary Care Provider] - 1 WEEK - Instructions
== END 2018-01-14 11:15 | disposition short-term general hospital (02) | DRG 310 ==
LOC: ICU 10:58
PROVIDERS: ADMIT Internal Medicine; ATTEND Internal Medicine
DX: R55 Syncope and collapse; F41.8 Other specified anxiety disorders; R53.1 Weakness; I48.2 Chronic atrial fibrillation; R42 Dizziness and giddiness; R26.89 Other abnormalities of gait and mobility; R06.02 Shortness of breath; I25.10 Atherosclerotic heart disease of native coronary artery without angina pectoris; I10 Essential (primary) hypertension; Z79.01 Long term (current) use of anticoagulants
CPT/HCPCS: 36415; 71010; 71045; 80053; 80061; 80162; 81001; 82270; 82550; 82553; 82607; 82728; 82746; 83540; 83735; 84439; 84443; 84466; 84484; 85025; 85378; 85610; 85730; 93005; 93010; 97161; A4222; C9113; S0028; J0282; J1160; J1756; J2405; J3490; J7040; J7050

== ENCOUNTER 2020-07-18 11:11 | Inpatient (IN) ==
[2020-07-18 11:57] VITALS: BMI 32.8
--- NOTE | 2020-07-18 12:08 | DR.SOBA ---
HPI Time Seen Time Seen by Provider: 07/18/20 12:08 Primary Care Physician Primary Care Physician: DANY Díaz PECAN SHELLER HPI Comment HPI Comment: PATIENT IS 70YR OLD FEMALE IN ER WITH INCREASING SOB TIMES 3 DAYS AND WHEEZING THIS AM. OXYGEN SATURATION WAS 89 IN ER. NO FEVER AND PATIENT IS HAVING PLEURITIC CHEST DISCOMFORT. Complaints Chief Complaint Doctors Comments: INCREASING SOB AND WHEEZING TIMES 3 DAYS. Chief Complaint:: PT C/O WHEEZING AT HOME , AND SOB PT STATES SHE WENT TO A THE WEEKEND ANY MAY HAVE BEEN EXPOSED TO COVID ,BR ,BR Self Treatment fo Chief Complaint: PT'S 02 SATS IN TRIAGE HAVE DIPPED DOWN TO 89% , COVID-19 Coronavirus risk:travel/contact w/high risk person: No Has patient experienced Coronavirus symptoms: Yes Coronavirus symptoms experienced: Shortness of Breath Reviewed Nurses Notes Reviewed: Yes Source History Provided: Patient Mode of Arrival Mode of Arrival: Ambulatory Timing Onset of Chief Complaint: 07/15/20 Duration Duration: Days Context Onset:: At Rest PE Risk Factors:: None History of:: None Currently on:: Neither Prehospital Care:: None Modifying Factors Worsens:: Exertion and Lying Flat Improves:: Rest and Sitting Up Associated Signs and Symptoms Associated Signs and Symptoms: Wheeze, Cough and Chest Pain If Chest Pain Quality: Pleuritic Location: Substernal If Cough Cough: Nonproductive PMH PMH Past Medical History: Yes Past Medical History: Coronary Artery Disease, Dyslipidemia, GERD and Hypertension Past Medical History Comment: BETI Past Surgical History: Yes Surgical History: Angioplasty/Stents, Cholecystectomy, Hysterectomy and Other Family History History of Family Medical Conditions: Yes Family Medical History: Diabetes Mellitus Social History Does patient currently use any type of tobacco product: No Have you used tobacco products in the last 12 months: No Type of Tobacco Use: None Does any household member use tobacco: No Alcohol Use: None Do you use any recreational Drugs:: No Lives With: Family Lives Where: Home Travel Risk Coronavirus risk:travel/contact w/high risk person: No Has patient experienced Coronavirus symptoms: Yes Coronavirus symptoms experienced: Shortness of Breath Infectious screening In the last 2 months have you had wt loss of >10#?: NO Have you had fever, night sweats or hemotysis?: No Have you traveled outside the country in the last 6 months?: No Isolation: Droplet ROS Review of Systems Constitutional: See HPI, Weakness and Fatigue; negative Fever Eyes: No Symptoms Reported and See HPI ENTM: See HPI and Nose Congestion; negative Nose Discharge Respiratoy: See HPI, Moist Cough, Short of Breath and Wheezing Cardiovascular: See HPI, Chest Pain and Edema; negative Palpitations Gastrointestinal/Abdominal: No Symptoms Reported and See HPI; negative Abdominal Pain, Diarrhea and Vomiting Genitourinary: No Symptoms Reported and See HPI; negative Dysuria Neurological: See HPI, Headache and Weakness; negative Dizziness Musculoskeletal: No Symptoms Reported and See HPI; negative Back Pain and Muscle Pain Integumentary: No Symptoms Reported and See HPI; negative Change in Color, Rash and Juandice Hematologic/Lymphatic: No Symptoms Reported and See HPI; negative Easy Bruising and Swollen Glands Endocrine: No Symptoms Reported and See HPI; negative Increased Thirst and Increased Urine Psychiatric: No Symptoms Reported and See HPI All Other Systems: Reviewed and Negative PE Vital Signs Vitals: Temperature 97.2 F Pulse Rate 102 Respiratory Rate 20 Blood Pressure [Left Arm] 161/67 Blood Pressure 140/75 O2 Sat by Pulse Oximetry 95 General Limitations: No Limitations General Appearance: Alert and In No Apparent Distress Head Head Exam: Normal Inspection and Atraumatic Eyes Eye exam: Normal Appearance and PERRL; negative Scleral Icterus and Conjunctival Injection ENT ENT Exam: Normal Exam, Normal Oropharynx, Normal External Ear Exam and TM's Normal Bilaterally Neck Neck Exam: Normal Inspection and Trachea Midline; negative Tenderness and Lymphadenopathy Chest Chest Inspection: Normal Inspection and Symmetric Chest Wall Rise; negative Tenderness Respiratory Respiratory Exam: Normal Lung Sounds Bilat; negative Accessory Muscle Use, Chest Wall Tenderness and Respiratory Distress Respiratory Exam: Bilateral: Wheezing and Bilateral: Rhonchi and Lower: Rhonchi Cardiovascular Cardiovascular Exam: Regular Rate, Normal Rhythm and Normal Heart Sounds; negative Systolic Murmur and Diastolic Murmur Abdominal Exam Abdominal Exam: Normal Inspection, Normal Bowel Sounds and Soft; negative Tenderness Extremities Extremities Exam: Tenderness, Normal Capillary Refill and Edema; negative Calf Tenderness Back Back Exam: Normal Inspection; negative (R) CVA Tenderness and (L) CVA Tenderness Neurologic Neurological Exam: Alert, Oriented X3 and CN II-XII Intact; negative Motor Sensory Deficit Psychiatric Psychiatric Exam: Normal Affect and Anxious Skin Skin Exam: Warm, Dry, Intact and Normal Color MDM Additional Information Obtained Additional Information Obtained From: PCP Differential Diagnosis Differential Diagnosis: Bronchitis, CHF, Dysrhythmia, Hyponatremia, Mycardial Infarction, Pneumonia, Pneumothorax, Respiratory Insufficiency, Sinusitis and URI COURSE Treatment Treatment: SEE ORDERS. Education/Counseling Education/Counseling: Patient Educated On: Diagnosis and Needs for Follow Up ROR Labs Reviewed Laboratory Results Reviewed?: Yes Result Diagrams: 07/24/20 08:51 07/24/20 08:51 Laboratory: 07/18/20 12:35 Blood Blood Culture - Final 07/18/20 12:17 Blood Blood Culture - Final WBC 17.6 X10^3/uL (3.6-10.0) H 07/18/20 12:17 RBC 4.04 X10^6/uL (3.5-5.4) 07/18/20 12:17 Hgb 12.3 g/dL (12.0-16.0) 07/18/20 12:17 Hct 37.0 % (36.0-47.0) 07/18/20 12:17 MCV 91.6 fL (80.0-100.0) 07/18/20 12:17 MCH 30.3 pg (27.0-34.0) 07/18/20 12:17 MCHC 33.1 g/dL (33.0-35.0) 07/18/20 12:17 RDW 14.8 % (11.6-16.5) 07/18/20 12:17 Plt Count 532 X10^3/uL (150.0-450.0) H 07/18/20 12:17 Plt Count Comment Increased (ADEQUATE) A 07/18/20 12:17 MPV 9.1 fL (7.4-11.0) 07/18/20 12:17 Neut % (Auto) 85.6 % (42.0-75.0) H 07/18/20 12:17 Lymph % (Auto) 5.8 % (21.0-51.0) L 07/18/20 12:17 [place] % (Auto) 7.8 % (0.0-13.0) 07/18/20 12:17 Eos % (Auto) 0.5 % (0.9-2.9) L 07/18/20 12:17 Baso % (Auto) 0.3 % (0.2-1.0) 07/18/20 12:17 Neut # (Auto) 15.0 x10^3/uL (2.2-4.8) H 07/18/20 12:17 Lymph # (Auto) 1.0 X10^3/uL (1.3-2.9) L 07/18/20 12:17 [place] # (Auto) 1.4 x10^3/uL (0.3-0.8) H 07/18/20 12:17 Eos # (Auto) 0.1 x10^3/uL (0.0-0.2) 07/18/20 12:17 Baso # (Auto) 0.1 X10^3/uL (0.0-0.1) 07/18/20 12:17 Absolute Nucleated RBC 0.1 /100WBC 07/18/20 12:17 Total Counted 100 07/18/20 12:17 Neutrophils % (Manual) 83 % (39-76) H 07/18/20 12:17 Band Neutrophils % 4 % (0-10) 07/18/20 12:17 Lymphocytes % (Manual) 4 % (13-43) L 07/18/20 12:17 Monocytes % (Manual) 9 % (4-9) 07/18/20 12:17 Plt Morphology Comment Normal (NORMAL) 07/18/20 12:17 RBC Morphology Normal (NORMAL) 07/18/20 12:17 PT 20.1 SECONDS (11.8-14.3) 07/18/20 12:17 INR Target Range - 07/18/20 12:17 INR 1.78 (0.8-1.3) H 07/18/20 12:17 APTT 39.4 SECONDS (22.9-36.5) H 07/18/20 12:17 PTT Comment - 07/18/20 12:17 Sodium 140 mmol/L (136-145) 07/18/20 12:35 Corrected Sodium 140 mmol/L (136-145) 07/18/20 12:35 Potassium 4.3 mmol/L (3.5-5.1) 07/18/20 12:35 Chloride 104 mmol/L (98-107) 07/18/20 12:35 Carbon Dioxide 22.6 mmol/L (21-32) 07/18/20 12:35 BUN 16 mg/dL (7-18) 07/18/20 12:35 Creatinine 0.80 mg/dL (0.55-1.02) 07/18/20 12:35 Est GFR (MDRD) Af Amer > 60 (>60) 07/18/20 12:35 Est GFR (MDRD) Non-Af > 60 (>60) 07/18/20 12:35 Glucose 111 mg/dL (65-99) H 07/18/20 12:35 Calcium 8.9 mg/dL (8.5-10.1) 07/18/20 12:35 Corrected Calcium 9.6 mg/dL (8.5-10.1) 07/18/20 12:35 Magnesium 1.9 mg/dL (1.7-2.9) 07/18/20 12:35 Total Bilirubin 0.40 mg/dL (0.2-1.0) 07/18/20 12:35 AST 22 Units/L (15-37) 07/18/20 12:35 ALT 20 Units/L (12-78) 07/18/20 12:35 Alkaline Phosphatase 61 Units/L (46-116) 07/18/20 12:35 Creatine Kinase 60 Units/L (26-192) 07/18/20 12:35 CK-MB (CK-2) 1.8 ng/mL (0-4.0) 07/18/20 12:35 CK/CKMB % Calc 3.0 % (<4) 07/18/20 12:35 Troponin I 0.11 ng/mL (0-1.5) 07/18/20 12:35 C-Reactive Protein 12.40 mg/L (0-3.0) H 07/18/20 12:45 B-Natriuretic Peptide 900 pg/mL (0-79) H* 07/18/20 12:35 Total Protein 6.9 g/dL (6.4-8.2) 07/18/20 12:35 Albumin 3.1 g/dL (3.4-5.0) L 07/18/20 12:35 Globulin 3.8 g/dL (2.5-4.5) 07/18/20 12:35 Albumin/Globulin Ratio 0.8 Ratio (1.1-2.1) L 07/18/20 12:35 XRAY XRAY Interpreted by: Radiologist (REPORT NOTED AND DISCUSSED WITH PATIENT.) and Self EKG Rate: 112 [place]: Normal Rhythm: Afib and PVCs Block: IVCD Hypertrophy: LVH ST: Infarct Opioid Opioid Risk Tool Age ([place]ake box if 16-45): No History of Preadolescent Sexual Abuse: No Total: 0 Total Score Risk Category: Low Risk Copyright: [facility] predicting aberrant behaviors Diagnosis Discharge Problem: SOB (shortness of breath) CHF (congestive heart failure) Qualifiers: Heart failure type: combined systolic and diastolic Heart failure chronicity: acute on chronic Qualified Code(s): I50.43 - Acute on chronic combined systolic (congestive) and diastolic (congestive) heart failure Atrial fibrillation Qualifiers: Atrial fibrillation type: unspecified Qualified Code(s): I48.91 - Unspecified atrial fibrillation Pneumonia Qualifiers: Pneumonia type: due to unspecified organism Laterality: bilateral Lung location: lower lobe of lung Qualified Code(s): J18.9 - Pneumonia, unspecified organism
--- NOTE | 2020-07-18 12:35 | RAD ---
HISTORYSOB, LOW SATS, POSSIBLE COVID EXPOSURESTUDYCHEST, 1 VIEWCOMPARISONChest film January 14, 2018.FINDINGSThe trachea is midline. The cardiac silhouette is mildly enlarged. There is central vascular congestion and interstitial process extending from the eveline bilaterally more consistent with vascular congestion and interstitial edema rather than pneumonia. No effusion is observed. Recommend radiographic follow-up at at this time findings are more consistent with CHF and interstitial edema rather than pneumonia.. the bony thorax is unremarkable.IMPRESSIONBilateral perihilar vascular congestion and interstitial process extending from the eveline more consistent with pulmonary interstitial edema rather than pneumonia. No effusions are observed. No consolidating or peripheral infiltrates are observed.Electronically signed by: NUPUR ALDANA (Jul 18, 2020 12:33:42)
[2020-07-18 12:46] LABS: BASOPHILS # (AUTO) 0.1 X10^3/uL (0.0-0.1); BASOPHILS % (AUTO) 0.3 % (0.2-1.0); EOSINOPHILS # (AUTO) 0.1 x10^3/uL (0.0-0.2); EOSINOPHILS % (AUTO) 0.5 % (0.9-2.9); HEMOGLOBIN 12.3 g/dL (12.0-16.0); LYMPHOCYTES % (AUTO) 5.8 % (21.0-51.0); MEAN CORPUSCULAR HEMOGLOBIN 30.3 pg (27.0-34.0); MEAN CORPUSCULAR HGB CONC 33.1 g/dL (33.0-35.0); MEAN CORPUSCULAR VOLUME 91.6 fL (80.0-100.0); MEAN PLATELET VOLUME 9.1 fL (7.4-11.0); MONOCYTES # (AUTO) 1.4 x10^3/uL (0.3-0.8); MONOCYTES % (AUTO) 7.8 % (0.0-13.0); NEUTROPHILS % (AUTO) 85.6 % (42.0-75.0); PLATELET COUNT 532 X10^3/uL (150.0-450.0); RED BLOOD COUNT 4.04 X10^6/uL (3.5-5.4); RED CELL DISTRIBUTION WIDTH 14.8 % (11.6-16.5); WHITE BLOOD COUNT 17.6 X10^3/uL (3.6-10.0)
[2020-07-18 12:54] LABS: BAND NEUTROPHILS % 4 % (0-10); PLATELET MORPHOLOGY COMMENT NORMAL (NORMAL)
[2020-07-18 13:04] LABS: BLOOD UREA NITROGEN 16 mg/dL (7-18); CALCIUM 8.9 mg/dL (8.5-10.1); CARBON DIOXIDE 22.6 mmol/L (21-32); CHLORIDE 104 mmol/L (98-107); COR NA(FOR HYPERGLY) 140 mmol/L (136-145); SODIUM 140 mmol/L (136-145); TROPONIN I 0.11 ng/mL (0-1.5); eGFR NON BLACK RACES > 60 (>60)
[2020-07-18 13:08] LABS: ALANINE AMINOTRANSFERASE 20 Units/L (12-78); ALBUMIN 3.1 g/dL (3.4-5.0); ALKALINE PHOSPHATASE 61 Units/L (46-116); ASPARTATE AMINO TRANSFERASE 22 Units/L (15-37); COR CA(FOR HYPOALB) 9.6 mg/dL (8.5-10.1); CREATINE KINASE 60 Units/L (26-192); CREATINE KINASE MB 1.8 ng/mL (0-4.0); MAGNESIUM 1.9 mg/dL (1.7-2.9); TOTAL PROTEIN 6.9 g/dL (6.4-8.2)
[2020-07-18] MEDS ORDERED: LASIX IVP SCH (17:00)
--- NOTE | 2020-07-18 17:28 | DR.H&P ---
H&P - History & Physical for Day of: H&P Date: 07/18/20 - Chief Complaint Chief Complaint: SOB, WHEEZING, SWELLING TO LEGS - History of Present Illness History of Present Illness: PT IS 70 WF ER ADMISSION WITH CO INCREASED SOB, WHEEZING. PT STATES SHE BECOME VERY FATIGUED WITH PAIN ALL OVER LAST WEEK, WAS STARTED ON PO STEROIDS WITH LITTLE IMPROVEMENT. PT HAD COVID IGM+ ON 07/04/20 BUT DENIED ANY FLU LIKE SYMPTOMS UP TO THAT TIME. PT HAD HEART CATH X2 SINCE 07/05/[address] FERNANDO WITHOUT STENTING. PT HAS PMH OF AFIB, HTN, OA, DENNY, GERD AND ANEMIA. PT NOTED TO HAVE CHF ON CXR ON ADMISSION. PT ADMITTED FOR TREATMENT OF ACUTE ILLNESS, RO COVID PNEUMONIA. - Past Medical History Past Medical History: Anemia, Anxiety, Arthritis, Coronary Artery Disease, Dyslipidemia, GERD, Hypertension Additional Medical History: HX AFIB - Past Surgical History Surgical History: Angioplasty/Stents, Cholecystectomy, Hysterectomy, Other - Family History Family Medical History: Diabetes Mellitus - Social History Does patient currently use any type of tobacco product: No Have you used tobacco products in the last 12 months: No Type of Tobacco Use: None Does any household member use tobacco: No Alcohol Use: None - Medications Home Medications: metoclopramide [From Reglan] Allergy (Verified 07/18/20 11:52) Penicillins Allergy (Verified 07/18/20 11:52) Sulfa (Sulfonamide Antibiotics) [SULFA] Allergy (Verified 07/18/20 11:52) CONTINUE taking the following medications diltiazem HCl 240 mg PO DAILY 07/18/20 [History] gabapentin 100 mg PO HS 07/18/20 [History] hydrocodone-acetaminophen 1 tab PO Q6H PRN 07/18/20 [History] methylprednisolone See Rx Instructions .ROUTE .COMPLEX 07/18/20 [History] omeprazole 40 mg PO HS 07/18/20 [History] - Review of Systems Constitutional: Weakness, Malaise Eyes: No Symptoms Reported ENT: No Symptoms Reported Respiratory: Shortness of Breath, SOB with Excertion, Wheezing Cardiovascular: Edema Gastrointestinal: Nausea Genitourinary: No Symptoms Reported Musculoskeletal: Back Pain, Leg Pain Skin: No Symptoms Reported Neurological: Weakness - Physical Exam Vital Signs: Temperature 97.2 F Pulse Rate 102 Respiratory Rate 20 Blood Pressure [Left Arm] 161/67 Blood Pressure 140/75 O2 Sat by Pulse Oximetry 95 Oriented: Normal Eyes: Normal Ear: Normal Nose: Normal Throat: Normal Respiratory: Wheezes Throughout, RLL Diminished, LLL Diminished Cardiovascular: Normal : Normal Auscultation: Bowel Sounds: Normal Palpation: Normal Tenderness: Normal Skin: Decreased [place] Musculoskeletal: Back:Lumbar Psychiatric: Anxiety Affect: Anxious Speech Pattern: Clear, Appropriate - Assessment/Plan (1) Respiratory distress Status: Acute Plan: ADMIT, SERIAL CE AND EKGS. CXR ON ADMISSION, SUPPLEMENTAL O2. CARDIAC MONITORING, IV LASIX, STRICT I&OS. VERIFY HOME MEDICATION, RESUME ANTICOAGULANT THERAPY. AM LABS, RO COVID 19 ON ADMISSION (2) CHF (congestive heart failure) Status: Acute (3) Afib Status: Acute (4) CAD (coronary artery disease) Status: Acute (5) Anemia Status: Acute (6) Osteoarthritis Status: Acute (7) Hypertension Status: Chronic - Allergies Allergies/Adverse Reactions: Allergies Allergy/AdvReac Type Severity Reaction Status Date / Time metoclopramide [From Reglan] Allergy Verified 07/18/20 11:52 Penicillins Allergy Verified 07/18/20 11:52 Sulfa (Sulfonamide Allergy Verified 07/18/20 11:52 Antibiotics) [SULFA]
[2020-07-18] MEDS ORDERED: LASIX IVP ONE (17:39)
[2020-07-18] MEDS ORDERED: K-DUR TAB 20 MEQ PO ONE (17:39)
[2020-07-18] MEDS: K-DUR TAB 20 MEQ PO SCH ×2 (17:41→21:20)
[2020-07-18 18:39] LABS: ABG BASE EXCESS 2.8 mmol/L (-2.0-2.0); ABG HCO3 26.1 mmol/L (22-26)
[2020-07-18 18:40] LABS: ABG ALLEN TEST POS
[2020-07-18 18:41] LABS: CKMB % 3.7 % (<4); CREATINE KINASE MB 2.7 ng/mL (0-4.0); TROPONIN I 0.11 ng/mL (0-1.5)
[2020-07-18 18:49] LABS: BILIRUBIN,URINE NEGATIVE (NEGATIVE); GLUCOSE, URINE NEGATIVE (NEGATIVE); NITRITES,URINE NEGATIVE (NEGATIVE); PROTEIN,URINE 2+ (NEGATIVE)
[2020-07-18] MEDS ORDERED: LOPRESSOR INJ 5 MG AMP IVP ONE (18:58)
[2020-07-18] MEDS ORDERED: LANOXIN ONE (18:59)
[2020-07-18] MEDS ORDERED: LANOXIN INJ IVP ONE (18:59)
[2020-07-18] MEDS ORDERED: LOPRESSOR INJ 5 MG AMP ONE (18:59)
[2020-07-18 19:02] LABS: BACTERIA,URINE TRACE /HPF (NEGATIVE); COLOR,URINE YELLOW (YELLOW)
[2020-07-18] MEDS ORDERED: LANOXIN INJ ONE (19:02)
[2020-07-18] MEDS: PRAVACHOL PO SCH (21:20)
[2020-07-18] MEDS: XARELTO PO SCH (21:20)
[2020-07-18] MEDS: NEURONTIN CAP 100 MG PO SCH (21:20)
[2020-07-18] MEDS: COREG TAB 12.5 MG PO SCH (21:20)
[2020-07-18] MEDS: AMBIEN PO SCH (21:20)
[2020-07-18] MEDS: PriLOSEC PO SCH (21:20)
[2020-07-18] MEDS ORDERED: NS 100 ML IV 100 ML IV ONE (22:17)
[2020-07-18] MEDS ORDERED: CARDIZEM INJ 125 MG VIAL ONE (22:19)
[2020-07-18] MEDS: CARDIZEM INJ 125 MG VIAL 125 MG in NS 100 ML IV 100 ML IV PRN (22:43)
[2020-07-19 01:52] LABS: CKMB % 3.8 % (<4); CREATINE KINASE MB 1.7 ng/mL (0-4.0); TROPONIN I 0.12 ng/mL (0-1.5)
[2020-07-19] MEDS ORDERED: NORCO 7.5/325 MG TAB ONE (04:13)
[2020-07-19] MEDS: NORCO 7.5/325 MG TAB PO PRN ×2 (04:26→12:02)
[2020-07-19 04:45] LABS: APPEARANCE,URINE CLEAR (CLEAR)
[2020-07-19 04:46] LABS: BLOOD/HEMOGLOBIN,URINE 5+ (NEGATIVE); KETONES,URINE NEGATIVE (NEGATIVE); UROBILINOGEN,URINE NORMAL (NORMAL)
[2020-07-19 04:47] LABS: LEUKOCYTE ESTERASE ,URINE 2+ (NEGATIVE); SQUAMOUS EPITHELIAL CELL,UR RARE /HPF (NEGATIVE)
[2020-07-19 07:33] LABS: BASOPHILS # (AUTO) 0.1 X10^3/uL (0.0-0.1); BASOPHILS % (AUTO) 0.6 % (0.2-1.0); EOSINOPHILS # (AUTO) 0.1 x10^3/uL (0.0-0.2); EOSINOPHILS % (AUTO) 0.7 % (0.9-2.9); HEMATOCRIT 35.2 % (36.0-47.0); HEMOGLOBIN 11.6 g/dL (12.0-16.0); LYMPHOCYTES # (AUTO) 1.3 X10^3/uL (1.3-2.9); MEAN CORPUSCULAR HGB CONC 32.9 g/dL (33.0-35.0); MEAN CORPUSCULAR VOLUME 91.1 fL (80.0-100.0); MEAN PLATELET VOLUME 8.5 fL (7.4-11.0); MONOCYTES # (AUTO) 1.7 x10^3/uL (0.3-0.8); MONOCYTES % (AUTO) 11.7 % (0.0-13.0); NEUTROPHILS # (AUTO) 11.4 x10^3/uL (2.2-4.8); PLATELET COUNT 399 X10^3/uL (150.0-450.0); RED BLOOD COUNT 3.86 X10^6/uL (3.5-5.4); RED CELL DISTRIBUTION WIDTH 14.9 % (11.6-16.5); WHITE BLOOD COUNT 14.6 X10^3/uL (3.6-10.0)
--- NOTE | 2020-07-19 07:47 | RAD ---
HISTORYCHFSTUDYCHEST, 1 VIEWCOMPARISONOne day prior.TECHNIQUEAP view of the chestFINDINGSThe cardiac and mediastinal contours appear stable. Similar appearance of mild bilateral scattered interstitial opacities. No definite pleural effusion or pneumothorax. Soft tissue attenuation limits evaluation.IMPRESSIONNo significant change. Mild scattered interstitial opacities may represent pulmonary edema.Electronically signed by: Kirby Mathew (Jul 19, 2020 07:46:48)
[2020-07-19 07:58] LABS: ALANINE AMINOTRANSFERASE 21 Units/L (12-78); ALBUMIN 2.8 g/dL (3.4-5.0); ALKALINE PHOSPHATASE 64 Units/L (46-116); ASPARTATE AMINO TRANSFERASE 25 Units/L (15-37); BLOOD UREA NITROGEN 16 mg/dL (7-18); CALCIUM 8.7 mg/dL (8.5-10.1); CARBON DIOXIDE 25.5 mmol/L (21-32); CHLORIDE 103 mmol/L (98-107); COR CA(FOR HYPOALB) 9.7 mg/dL (8.5-10.1); SODIUM 140 mmol/L (136-145); TOTAL PROTEIN 6.4 g/dL (6.4-8.2); eGFR NON BLACK RACES > 60 (>60)
[2020-07-19 08:03] LABS: CHOL/HDL RATIO 4.2 (0.0-5.0); MAGNESIUM 1.9 mg/dL (1.7-2.9)
[2020-07-19 08:47] LABS: CKMB % 2.3 % (<4); CREATINE KINASE MB 1.3 ng/mL (0-4.0); TROPONIN I 0.11 ng/mL (0-1.5)
[2020-07-19] MEDS ORDERED: ZITHROMAX INJ 500 MG VIAL 500 MG in D5W 250 ML IV 250 ML IV SCH (09:00)
[2020-07-19] MEDS ORDERED: NS 100 ML IV 100 ML IV ONE ×4 (09:21→20:31)
[2020-07-19] MEDS ORDERED: CARDIZEM INJ 125 MG VIAL ONE ×2 (09:22→18:36)
[2020-07-19] MEDS: COREG TAB 12.5 MG PO SCH ×2 (09:59→21:32)
[2020-07-19] MEDS: CARDIZEM INJ 125 MG VIAL 125 MG in NS 100 ML IV 100 ML IV PRN ×2 (10:00→21:35)
[2020-07-19] MEDS: K-DUR TAB 20 MEQ PO SCH ×2 (10:01→21:34)
[2020-07-19] MEDS: LASIX IVP SCH ×2 (10:02→17:22)
--- NOTE | 2020-07-19 11:28 | CT ---
HISTORYR/O PE CHEST PAIN, SOBSTUDYCTA CHESTCOMPARISONChest radiograph from same day.TECHNIQUECTA chest protocol with axial images from the thoracic inlet to upper abdomen with IV contrast. Sagittal and coronal reformats and MIP images were created. Automated exposure control was utilized.FINDINGSThe thyroid is not visualized but there are few nodules in the anterior and left thyroid bed that measure up to 7 mm on image 5 series 4. Mildly atherosclerotic normal caliber thoracic aorta. Pulmonary artery is normal in caliber centrally. No filling defect is identified to suggest pulmonary embolism. The heart is mildly enlarged. Small pericardial effusion. Severe coronary artery calcification. Large hiatal hernia. No pathologic adenopathy in the thorax. Cholecystectomy. Reflux of contrast into the hepatic veins. No acute osseous abnormality. The trachea and mainstem bronchi appear patent. Moderate bilateral ground-glass opacities are present scattered throughout both lungs. Butch B-lines and interlobular septal thickening is present. No pleural effusion or pneumothorax. Mild scoliosis.IMPRESSIONMild cardiomegaly. Moderate bilateral scattered ground-glass opacities are nonspecific but favored to represent pulmonary edema given the presence of Butch B-lines.Electronically signed by: Kirby Mathew (Jul 19, 2020 11:27:12)
[2020-07-19] MEDS: SYNTHROID 25 mcg TAB PO SCH (12:04)
[2020-07-19] MEDS: ZITHROMAX INJ 500 MG VIAL 500 MG in NS 250 ML IV 250 ML IV SCH (12:06)
[2020-07-19] MEDS: ZOFRAN INJ 4 MG VIAL IVP PRN (14:56)
[2020-07-19 15:35] LABS: CKMB % 3.3 % (<4); CREATINE KINASE MB 1.3 ng/mL (0-4.0); TROPONIN I 0.09 ng/mL (0-1.5)
[2020-07-19] MEDS ORDERED: PEPCID TAB 20 MG ONE (18:36)
[2020-07-19] MEDS ORDERED: NS 1000 ML 1,000 ML ONE (19:52)
[2020-07-19 21:09] LABS: CKMB % 3.2 % (<4); CREATINE KINASE MB 1.2 ng/mL (0-4.0); TROPONIN I 0.1 ng/mL (0-1.5)
[2020-07-19] MEDS: XARELTO PO SCH (21:32)
[2020-07-19] MEDS: AMBIEN PO SCH (21:32)
[2020-07-19] MEDS: PriLOSEC PO SCH (21:32)
[2020-07-19] MEDS: NEURONTIN CAP 100 MG PO SCH (21:32)
[2020-07-19] MEDS: PEPCID TAB 20 MG PO SCH (21:34)
[2020-07-19] MEDS: PRAVACHOL PO SCH (21:34)
[2020-07-20] MEDS ORDERED: MORPHINE SULFATE INJ 2 MG INJ IVP ONE (00:44)
[2020-07-20] MEDS ORDERED: TORADOL 30 MG VIAL IVP ONE (00:57)
[2020-07-20] MEDS ORDERED: CARDIZEM INJ 125 MG VIAL ONE (08:23)
[2020-07-20] MEDS ORDERED: NS 100 ML IV 100 ML IV ONE (08:29)
[2020-07-20] MEDS: COREG TAB 12.5 MG PO SCH ×2 (08:50→21:00)
[2020-07-20] MEDS: ZITHROMAX INJ 500 MG VIAL 500 MG in NS 250 ML IV 250 ML IV SCH (09:00)
[2020-07-20] MEDS: SYNTHROID 25 mcg TAB PO SCH (09:01)
[2020-07-20] MEDS: K-DUR TAB 20 MEQ PO SCH ×2 (09:01→21:00)
[2020-07-20] MEDS: PEPCID TAB 20 MG PO SCH ×2 (09:01→21:00)
[2020-07-20] MEDS: CARDIZEM INJ 125 MG VIAL 125 MG in NS 100 ML IV 100 ML IV PRN (09:08)
[2020-07-20] MEDS: LASIX IVP SCH (09:30)
[2020-07-20 10:28] LABS: BASOPHILS % (AUTO) 0.3 % (0.2-1.0); EOSINOPHILS # (AUTO) 0.5 x10^3/uL (0.0-0.2); EOSINOPHILS % (AUTO) 3.4 % (0.9-2.9); HEMATOCRIT 39.8 % (36.0-47.0); LYMPHOCYTES # (AUTO) 1.1 X10^3/uL (1.3-2.9); LYMPHOCYTES % (AUTO) 7.2 % (21.0-51.0); MEAN CORPUSCULAR HGB CONC 32.7 g/dL (33.0-35.0); MEAN CORPUSCULAR VOLUME 91.7 fL (80.0-100.0); MEAN PLATELET VOLUME 8.5 fL (7.4-11.0); MONOCYTES % (AUTO) 6.4 % (0.0-13.0); NEUTROPHILS # (AUTO) 12.6 x10^3/uL (2.2-4.8); NEUTROPHILS % (AUTO) 82.7 % (42.0-75.0); PLATELET COUNT 508 X10^3/uL (150.0-450.0); RED BLOOD COUNT 4.34 X10^6/uL (3.5-5.4); RED CELL DISTRIBUTION WIDTH 15.2 % (11.6-16.5); WHITE BLOOD COUNT 15.2 X10^3/uL (3.6-10.0)
--- NOTE | 2020-07-20 10:38 | RAD ---
HISTORYCHF pneumoniaSTUDYChest PA and lateral viewsCOMPARISONFebruary 2020FINDINGSStable upper-normal heart size. There is mild nonspecific interstitial prominence in the lungs without evidence for localized consolidation. Retrocardiac opacity is consistent with hiatal hernia previously described. No localized consolidation is noted in the lungs and no pleural fluid or pneumothorax.IMPRESSIONMild stable cardiac prominence. Hiatal hernia. No change in appearance of lungs or pleural spaces. There is no evidence for christiane pulmonary edema or localized pneumonia.Electronically signed by: JEAN JOSHUA (Jul 20, 2020 10:35:54)
[2020-07-20 10:41] LABS: ALBUMIN 2.9 g/dL (3.4-5.0); CARBON DIOXIDE 27.4 mmol/L (21-32); COR CA(FOR HYPOALB) 9.9 mg/dL (8.5-10.1); CREATININE 1.17 mg/dL (0.55-1.02)
[2020-07-20] MEDS: NORCO 7.5/325 MG TAB PO PRN ×2 (11:56→21:00)
[2020-07-20] MEDS: ZITHROMAX TAB 250 MG PO SCH (11:56)
[2020-07-20] MEDS: ZOFRAN INJ 4 MG VIAL IVP PRN (16:35)
[2020-07-20] MEDS: XARELTO PO SCH (21:00)
[2020-07-20] MEDS: PriLOSEC PO SCH (21:00)
[2020-07-20] MEDS: AMBIEN PO SCH (21:00)
[2020-07-20] MEDS: PRAVACHOL PO SCH (21:00)
[2020-07-20] MEDS: NEURONTIN CAP 100 MG PO SCH (21:00)
[2020-07-21] MEDS: CARDIZEM INJ 125 MG VIAL 125 MG in NS 100 ML IV 100 ML IV PRN (00:15)
[2020-07-21 07:02] LABS: BASOPHILS # (AUTO) 0.1 X10^3/uL (0.0-0.1); BASOPHILS % (AUTO) 0.5 % (0.2-1.0); EOSINOPHILS # (AUTO) 0.7 x10^3/uL (0.0-0.2); EOSINOPHILS % (AUTO) 5.1 % (0.9-2.9); HEMATOCRIT 35.8 % (36.0-47.0); HEMOGLOBIN 11.8 g/dL (12.0-16.0); LYMPHOCYTES # (AUTO) 1.2 X10^3/uL (1.3-2.9); LYMPHOCYTES % (AUTO) 8.7 % (21.0-51.0); MEAN CORPUSCULAR HEMOGLOBIN 30.2 pg (27.0-34.0); MEAN CORPUSCULAR VOLUME 91.6 fL (80.0-100.0); MEAN PLATELET VOLUME 8.9 fL (7.4-11.0); MONOCYTES # (AUTO) 1.1 x10^3/uL (0.3-0.8); MONOCYTES % (AUTO) 8.3 % (0.0-13.0); NEUTROPHILS # (AUTO) 10.5 x10^3/uL (2.2-4.8); NEUTROPHILS % (AUTO) 77.4 % (42.0-75.0); PLATELET COUNT 417 X10^3/uL (150.0-450.0); RED CELL DISTRIBUTION WIDTH 15.2 % (11.6-16.5); WHITE BLOOD COUNT 13.6 X10^3/uL (3.6-10.0)
[2020-07-21 07:03] LABS: ALANINE AMINOTRANSFERASE 18 Units/L (12-78); ALBUMIN 2.7 g/dL (3.4-5.0); ALKALINE PHOSPHATASE 64 Units/L (46-116); ASPARTATE AMINO TRANSFERASE 15 Units/L (15-37); BLOOD UREA NITROGEN 23 mg/dL (7-18); CALCIUM 8.7 mg/dL (8.5-10.1); CARBON DIOXIDE 29.3 mmol/L (21-32); CHLORIDE 103 mmol/L (98-107); COR CA(FOR HYPOALB) 9.7 mg/dL (8.5-10.1); CREATININE 1.06 mg/dL (0.55-1.02); SODIUM 139 mmol/L (136-145); TOTAL PROTEIN 6.5 g/dL (6.4-8.2); eGFR NON BLACK RACES 55 (>60)
[2020-07-21] MEDS: PEPCID TAB 20 MG PO SCH ×2 (08:30→21:30)
[2020-07-21] MEDS: K-DUR TAB 20 MEQ PO SCH (08:30)
[2020-07-21] MEDS: COREG TAB 12.5 MG PO SCH ×2 (08:30→21:30)
[2020-07-21] MEDS: ZITHROMAX TAB 250 MG PO SCH (08:31)
[2020-07-21] MEDS: LASIX IVP SCH (08:31)
[2020-07-21] MEDS: SYNTHROID 25 mcg TAB PO SCH (08:31)
[2020-07-21 11:05] LABS: CKMB % 3.1 % (<4); CREATINE KINASE MB 1.6 ng/mL (0-4.0); TROPONIN I 0.11 ng/mL (0-1.5)
[2020-07-21] MEDS: CARDIZEM TAB 30 MG PLAIN PO SCH ×3 (11:05→21:30)
[2020-07-21 12:27] LABS: ABG BASE EXCESS 6.7 mmol/L (-2.0-2.0)
[2020-07-21 12:28] LABS: ABG HCO3 31.9 mmol/L (22-26)
[2020-07-21] MEDS ORDERED: CARAFATE ONE (13:15)
[2020-07-21] MEDS: CARAFATE PO SCH (16:34)
[2020-07-21] MEDS ORDERED: TYLENOL 325 MG TAB PO ONE (16:35)
[2020-07-21] MEDS: TYLENOL 325 MG TAB PO PRN (16:45)
[2020-07-21] MEDS: AMBIEN PO SCH (21:30)
[2020-07-21] MEDS: PriLOSEC PO SCH (21:30)
[2020-07-21] MEDS: NEURONTIN CAP 100 MG PO SCH (21:30)
[2020-07-21] MEDS: XARELTO PO SCH (21:30)
[2020-07-21] MEDS: PRAVACHOL PO SCH (21:30)
[2020-07-22] MEDS: CARAFATE PO SCH ×4 (01:33→16:43)
[2020-07-22] MEDS: K-DUR TAB 20 MEQ PO SCH ×3 (01:34→21:00)
[2020-07-22] MEDS: CARDIZEM TAB 30 MG PLAIN PO SCH (04:20)
--- NOTE | 2020-07-22 05:17 | RAD ---
HISTORYCHFSTUDYCHEST, 1 [id number]/06/2021 the stableFINDINGSThe trachea is midline. The cardiac silhouette is none. The lungs are clear without focal infiltrate or effusion. The bony thorax is unremarkable.IMPRESSIONNo acute cardiopulmonary disease.Electronically signed by: Alex Perez (Jul 22, 2020 05:16:18)
[2020-07-22 06:54] LABS: BASOPHILS # (AUTO) 0.1 X10^3/uL (0.0-0.1); BASOPHILS % (AUTO) 0.4 % (0.2-1.0); EOSINOPHILS # (AUTO) 0.6 x10^3/uL (0.0-0.2); EOSINOPHILS % (AUTO) 4.6 % (0.9-2.9); HEMATOCRIT 33.2 % (36.0-47.0); HEMOGLOBIN 10.8 g/dL (12.0-16.0); LYMPHOCYTES # (AUTO) 1.1 X10^3/uL (1.3-2.9); LYMPHOCYTES % (AUTO) 8.5 % (21.0-51.0); MEAN CORPUSCULAR HEMOGLOBIN 29.9 pg (27.0-34.0); MEAN CORPUSCULAR HGB CONC 32.6 g/dL (33.0-35.0); MEAN CORPUSCULAR VOLUME 91.5 fL (80.0-100.0); MEAN PLATELET VOLUME 8.3 fL (7.4-11.0); MONOCYTES # (AUTO) 1.3 x10^3/uL (0.3-0.8); MONOCYTES % (AUTO) 9.8 % (0.0-13.0); NEUTROPHILS # (AUTO) 9.9 x10^3/uL (2.2-4.8); NEUTROPHILS % (AUTO) 76.7 % (42.0-75.0); PLATELET COUNT 421 X10^3/uL (150.0-450.0); RED BLOOD COUNT 3.62 X10^6/uL (3.5-5.4); RED CELL DISTRIBUTION WIDTH 14.8 % (11.6-16.5); WHITE BLOOD COUNT 12.9 X10^3/uL (3.6-10.0)
[2020-07-22 07:03] LABS: ALANINE AMINOTRANSFERASE 15 Units/L (12-78); ALBUMIN 2.5 g/dL (3.4-5.0); ALKALINE PHOSPHATASE 57 Units/L (46-116); ASPARTATE AMINO TRANSFERASE 16 Units/L (15-37); BLOOD UREA NITROGEN 22 mg/dL (7-18); CALCIUM 8.7 mg/dL (8.5-10.1); CARBON DIOXIDE 28.9 mmol/L (21-32); CHLORIDE 103 mmol/L (98-107); COR CA(FOR HYPOALB) 9.9 mg/dL (8.5-10.1); COR NA(FOR HYPERGLY) 138 mmol/L (136-145); CREATININE 0.91 mg/dL (0.55-1.02); SODIUM 138 mmol/L (136-145); TOTAL PROTEIN 6.2 g/dL (6.4-8.2); eGFR NON BLACK RACES > 60 (>60)
[2020-07-22 09:18] LABS: CKMB % 2.7 % (<4); CREATINE KINASE MB 1.3 ng/mL (0-4.0); TROPONIN I 0.13 ng/mL (0-1.5)
[2020-07-22] MEDS: COREG TAB 12.5 MG PO SCH ×2 (09:41→21:00)
[2020-07-22] MEDS: SYNTHROID 25 mcg TAB PO SCH (09:42)
[2020-07-22] MEDS: PEPCID TAB 20 MG PO SCH ×2 (09:42→21:00)
[2020-07-22] MEDS: CARDIZEM CD 240 MG 24-HR PO SCH (09:43)
[2020-07-22] MEDS: LASIX IVP SCH (09:43)
[2020-07-22] MEDS: ZITHROMAX TAB 250 MG PO SCH (09:43)
[2020-07-22] MEDS: TYLENOL 325 MG TAB PO PRN ×2 (14:51→22:00)
--- NOTE | 2020-07-22 16:08 | VAS ---
HISTORYLT POP PAINSTUDYLOWER EXT VENOUS, UNILATERALCOMPARISONNoneTECHNIQUEMultiple ríos scale and color flow Doppler images of the deep venous system were obtained of the left lower extremity.FINDINGSThe deep venous system of the left lower ex tremity was evaluated from the level of the common femoral vein through the popliteal vein. Normal c olor flow and augmentation can be observed. In addition, normal compression is seen throughout the d eep venous system.IMPRESSIONNegative for DVT.Electronically signed by: HECTOR GUADALUPE (Jul 22, 2020 16:07:06)
[2020-07-22] MEDS: AMBIEN PO SCH (21:00)
[2020-07-22] MEDS: PriLOSEC PO SCH (21:00)
[2020-07-22] MEDS: NEURONTIN CAP 100 MG PO SCH (21:00)
[2020-07-22] MEDS: XARELTO PO SCH (21:00)
[2020-07-22] MEDS: PRAVACHOL PO SCH (21:00)
[2020-07-23] MEDS: CARAFATE PO SCH ×5 (01:48→22:11)
[2020-07-23 08:49] LABS: BASOPHILS % (AUTO) 0.4 % (0.2-1.0); EOSINOPHILS # (AUTO) 0.4 x10^3/uL (0.0-0.2); EOSINOPHILS % (AUTO) 3.3 % (0.9-2.9); HEMATOCRIT 37.3 % (36.0-47.0); HEMOGLOBIN 12.1 g/dL (12.0-16.0); LYMPHOCYTES # (AUTO) 0.9 X10^3/uL (1.3-2.9); LYMPHOCYTES % (AUTO) 7.7 % (21.0-51.0); MEAN CORPUSCULAR HEMOGLOBIN 29.6 pg (27.0-34.0); MEAN CORPUSCULAR HGB CONC 32.5 g/dL (33.0-35.0); MEAN CORPUSCULAR VOLUME 91.2 fL (80.0-100.0); MEAN PLATELET VOLUME 7.9 fL (7.4-11.0); MONOCYTES # (AUTO) 1.1 x10^3/uL (0.3-0.8); MONOCYTES % (AUTO) 9.3 % (0.0-13.0); NEUTROPHILS # (AUTO) 9.3 x10^3/uL (2.2-4.8); NEUTROPHILS % (AUTO) 79.3 % (42.0-75.0); PLATELET COUNT 437 X10^3/uL (150.0-450.0); RED BLOOD COUNT 4.09 X10^6/uL (3.5-5.4); WHITE BLOOD COUNT 11.7 X10^3/uL (3.6-10.0)
[2020-07-23 09:04] LABS: ALANINE AMINOTRANSFERASE 15 Units/L (12-78); ALBUMIN 2.6 g/dL (3.4-5.0); ALKALINE PHOSPHATASE 57 Units/L (46-116); ASPARTATE AMINO TRANSFERASE 19 Units/L (15-37); BLOOD UREA NITROGEN 14 mg/dL (7-18); CALCIUM 8.8 mg/dL (8.5-10.1); CARBON DIOXIDE 29.7 mmol/L (21-32); CHLORIDE 103 mmol/L (98-107); COR CA(FOR HYPOALB) 9.9 mg/dL (8.5-10.1); COR NA(FOR HYPERGLY) 142 mmol/L (136-145); CREATININE 0.98 mg/dL (0.55-1.02); SODIUM 140 mmol/L (136-145); TOTAL PROTEIN 6.5 g/dL (6.4-8.2); eGFR NON BLACK RACES 60 (>60)
--- NOTE | 2020-07-23 09:05 | RAD ---
HISTORYCongestive heart failure, pneumoniaSTUDYChest AP portableCOMPARISON8 July 2020FINDINGSThe heart is enlarged. No congestive heart failure is noted. The eveline are normal. The lung milligan are clear. No pleural effusions are identified. Bony thorax is unremarkable.IMPRESSIONCardiomegaly without congestive heart failureNo definite infiltratesElectronically signed by: KATYA VELAZQUEZ (Jul 23, 2020 09:04:15)
[2020-07-23] MEDS: COREG TAB 12.5 MG PO SCH ×2 (09:20→22:11)
[2020-07-23] MEDS: CARDIZEM CD 240 MG 24-HR PO SCH (09:20)
[2020-07-23] MEDS: PEPCID TAB 20 MG PO SCH ×2 (09:20→22:12)
[2020-07-23] MEDS: K-DUR TAB 20 MEQ PO SCH ×2 (09:21→22:11)
[2020-07-23] MEDS: ZITHROMAX TAB 250 MG PO SCH (09:21)
[2020-07-23] MEDS: LASIX IVP SCH (09:21)
[2020-07-23 09:27] LABS: CKMB % 2.5 % (<4); CREATINE KINASE MB 1.3 ng/mL (0-4.0); TROPONIN I 0.15 ng/mL (0-1.5)
[2020-07-23] MEDS: ZOFRAN INJ 4 MG VIAL IVP PRN (09:50)
[2020-07-23] MEDS: SYNTHROID 25 mcg TAB PO SCH (09:50)
[2020-07-23 14:01] LABS: ABG BASE EXCESS 7.8 mmol/L (-2.0-2.0)
[2020-07-23 14:02] LABS: ABG ALLEN TEST POS
[2020-07-23 16:41] LABS: CKMB % 3.1 % (<4); CREATINE KINASE MB 1.9 ng/mL (0-4.0); TROPONIN I 0.15 ng/mL (0-1.5)
[2020-07-23] MEDS ORDERED: BUTT CREAM (COMPOUND) ONE (16:42)
[2020-07-23] MEDS: NORCO 7.5/325 MG TAB PO PRN (16:45)
[2020-07-23] MEDS ORDERED: BUTT CREAM (COMPOUND) TOP PRN (17:04)
[2020-07-23 21:40] LABS: CKMB % 2.6 % (<4); CREATINE KINASE MB 1.5 ng/mL (0-4.0); TROPONIN I 0.15 ng/mL (0-1.5)
[2020-07-23] MEDS: AMBIEN PO SCH (22:10)
[2020-07-23] MEDS: NEURONTIN CAP 100 MG PO SCH (22:11)
[2020-07-23] MEDS: XARELTO PO SCH (22:12)
[2020-07-23] MEDS: PriLOSEC PO SCH (22:12)
[2020-07-23] MEDS: PRAVACHOL PO SCH (22:12)
[2020-07-24 04:04] LABS: CKMB % 2.7 % (<4); CREATINE KINASE MB 1.3 ng/mL (0-4.0); TROPONIN I 0.17 ng/mL (0-1.5)
[2020-07-24] MEDS: CARAFATE PO SCH ×3 (05:38→12:24)
[2020-07-24 09:06] LABS: BASOPHILS # (AUTO) 0.1 X10^3/uL (0.0-0.1); BASOPHILS % (AUTO) 1.2 % (0.2-1.0); EOSINOPHILS # (AUTO) 0.4 x10^3/uL (0.0-0.2); EOSINOPHILS % (AUTO) 3.1 % (0.9-2.9); HEMATOCRIT 38.4 % (36.0-47.0); HEMOGLOBIN 12.2 g/dL (12.0-16.0); LYMPHOCYTES # (AUTO) 1.2 X10^3/uL (1.3-2.9); LYMPHOCYTES % (AUTO) 10.7 % (21.0-51.0); MEAN CORPUSCULAR HEMOGLOBIN 28.9 pg (27.0-34.0); MEAN CORPUSCULAR HGB CONC 31.9 g/dL (33.0-35.0); MEAN CORPUSCULAR VOLUME 90.7 fL (80.0-100.0); MEAN PLATELET VOLUME 8.2 fL (7.4-11.0); MONOCYTES # (AUTO) 1.4 x10^3/uL (0.3-0.8); MONOCYTES % (AUTO) 12.3 % (0.0-13.0); NEUTROPHILS # (AUTO) 8.2 x10^3/uL (2.2-4.8); NEUTROPHILS % (AUTO) 72.7 % (42.0-75.0); PLATELET COUNT 464 X10^3/uL (150.0-450.0); RED BLOOD COUNT 4.23 X10^6/uL (3.5-5.4); RED CELL DISTRIBUTION WIDTH 14.7 % (11.6-16.5); WHITE BLOOD COUNT 11.3 X10^3/uL (3.6-10.0)
[2020-07-24 09:24] LABS: BLOOD UREA NITROGEN 12 mg/dL (7-18); CALCIUM 9.2 mg/dL (8.5-10.1); CARBON DIOXIDE 31.6 mmol/L (21-32); CHLORIDE 103 mmol/L (98-107); COR NA(FOR HYPERGLY) 140 mmol/L (136-145); SODIUM 140 mmol/L (136-145); TROPONIN I 0.15 ng/mL (0-1.5); eGFR NON BLACK RACES > 60 (>60)
[2020-07-24 09:28] LABS: ALANINE AMINOTRANSFERASE 18 Units/L (12-78); ALBUMIN 2.6 g/dL (3.4-5.0); ALKALINE PHOSPHATASE 63 Units/L (46-116); ASPARTATE AMINO TRANSFERASE 20 Units/L (15-37); CKMB % 3.4 % (<4); COR CA(FOR HYPOALB) 10.3 mg/dL (8.5-10.1); CREATINE KINASE 44 Units/L (26-192); CREATINE KINASE MB 1.5 ng/mL (0-4.0); TOTAL PROTEIN 6.7 g/dL (6.4-8.2)
[2020-07-24] MEDS: SYNTHROID 25 mcg TAB PO SCH (09:37)
[2020-07-24] MEDS: ZITHROMAX TAB 250 MG PO SCH (09:37)
[2020-07-24] MEDS: LASIX IVP SCH (09:39)
[2020-07-24] MEDS: CARDIZEM CD 240 MG 24-HR PO SCH (09:40)
[2020-07-24] MEDS: COREG TAB 12.5 MG PO SCH (09:40)
[2020-07-24] MEDS: K-DUR TAB 20 MEQ PO SCH ×2 (09:40→10:59)
[2020-07-24] MEDS: NORCO 7.5/325 MG TAB PO PRN ×2 (09:41→16:14)
[2020-07-24] MEDS: ZOFRAN INJ 4 MG VIAL IVP PRN (10:24)
[2020-07-24] MEDS: PEPCID TAB 20 MG PO SCH (10:24)
[2020-07-24 16:10] VITALS: BP 111/68
== END 2020-07-24 15:55 | disposition short-term general hospital (02) | DRG 291 ==
LOC: MED/SURG 11:49 → ER 11:49 → OBSVTOIN 15:55 → MED/SURG 16:27 → OBS 07-19 08:28
PROVIDERS: ADMIT Internal Medicine; ATTEND Internal Medicine
DX: E78.2 Mixed hyperlipidemia; R06.02 Shortness of breath; R60.0 Localized edema; K21.9 Gastro-esophageal reflux disease without esophagitis; R94.31 Abnormal electrocardiogram [ECG] [EKG]; R26.89 Other abnormalities of gait and mobility; J18.9 Pneumonia, unspecified organism; Z86.16 Personal history of COVID-19; M19.90 Unspecified osteoarthritis, unspecified site; I25.10 Atherosclerotic heart disease of native coronary artery without angina pectoris; Z20.822 Contact with and (suspected) exposure to COVID-19; M51.06 Intervertebral disc disorders with myelopathy, lumbar region; I48.20 Chronic atrial fibrillation, unspecified; I11.0 Hypertensive heart disease with heart failure; D64.89 Other specified anemias

== ENCOUNTER 2020-08-04 08:58 | Inpatient (IN) ==
[2020-08-04 09:07] VITALS: BMI 31.0
--- NOTE | 2020-08-04 09:19 | DR.SOBA ---
HPI Time Seen Time Seen by Provider: 08/04/20 09:16 Primary Care Physician Primary Care Physician: Bucky HPI Comment HPI Comment: PATIENT IS 70YR OLD FEMALE IN ER WITH INCREASING SOB AND O2 SAT. SHE IS COUGHING, DIZZY AND HAVE LEFT ARM PAIN. SHE HAD CARDIAC ABLATION WEDNESDAY FOR A FIB. ADMITTED TO HOSPITAL AND TRANSFER TO [facility] ON 07/24/2020. STARTED GETTING WORSE LAST YESTERDAY. ARM PAIN 7/10, SHARP AND RADIATES TO FOREARM. NO FEVER. COUGHING, PRODUCTIVE, YELLOW SPUTUM. CARDIAC CATH Complaints Chief Complaint Doctors Comments: INCREASING SOB, LOW O2 SAT, COUGH AND LEFT ARM PAIN. Chief Complaint:: Pt here with shortness of breath, dizziness, and low O2 sats. Son states pt's sats have been in the 80-90s, was in [place] last week and had a cardiac ablation on . Pt also reports cough and L arm pain. COVID-19 Coronavirus risk:travel/contact w/high risk person: No Has patient experienced Coronavirus symptoms: No Reviewed Nurses Notes Reviewed: Yes Source History Provided: Patient and Family Member Mode of Arrival Mode of Arrival: Ambulatory Timing Onset of Chief Complaint: 08/03/20 Duration Duration: Days Context Onset:: At Rest PE Risk Factors:: None History of:: CHF Currently on:: Neither Prehospital Care:: Furosemide Modifying Factors Worsens:: Exertion and Lying Flat Improves:: Rest and Sitting Up Associated Signs and Symptoms Associated Signs and Symptoms: Cough and Chest Pain If Chest Pain Quality: Sharp Location: Substernal If Cough Cough: Productive and Yellow PMH PMH Past Medical History: Yes Past Medical History: CHF, Dyslipidemia, Hypertension, Hypothyroidism and Sleep Apnea Past Surgical History: Yes Surgical History: Cholecystectomy, Hysterectomy and Other Past Surgical History Comment: heart cath with stent placement, cardiac ablation Family History History of Family Medical Conditions: Yes Family Medical History: Diabetes Mellitus Social History Alcohol Use: None Do you use any recreational Drugs:: No Lives Where: Home Infectious screening In the last 2 months have you had wt loss of >10#?: NO Have you traveled outside the country in the last 6 months?: No Isolation: Droplet ROS Review of Systems Constitutional: See HPI, Weakness and Fatigue; negative Fever Eyes: No Symptoms Reported and See HPI ENTM: See HPI and Nose Congestion; negative Nose Discharge Respiratoy: See HPI, Productive Cough and Short of Breath; negative Wheezing Cardiovascular: See HPI, Chest Pain and Edema Gastrointestinal/Abdominal: No Symptoms Reported and See HPI; negative Abdominal Pain, Diarrhea, Nausea and Vomiting Genitourinary: No Symptoms Reported, See HPI and Other (DECREASE URINE OUTPUT.); negative Dysuria, Frequency and Hematuria Neurological: See HPI, Weakness and Dizziness; negative Headache Musculoskeletal: No Symptoms Reported and See HPI; negative Back Pain and Muscle Pain Integumentary: No Symptoms Reported and See HPI; negative Change in Color, Rash and Juandice Hematologic/Lymphatic: No Symptoms Reported and See HPI; negative Easy Bruising and Swollen Glands Endocrine: No Symptoms Reported, See HPI and Increased Thirst; negative Increased Urine (DECREASE URINE.) Psychiatric: No Symptoms Reported and See HPI All Other Systems: Reviewed and Negative PE Vital Signs Vitals: Temperature 96.8 F Pulse Rate 61 Respiratory Rate 13 Blood Pressure [Right Arm] 111/68 Blood Pressure 99/54 O2 Sat by Pulse Oximetry 99 General Limitations: No Limitations General Appearance: Alert and In Distress Head Head Exam: Normal Inspection and Atraumatic Eyes Eye exam: Normal Appearance and PERRL; negative Scleral Icterus and Conjunctival Injection ENT ENT Exam: Normal Exam, Normal Oropharynx, Normal External Ear Exam and TM's Normal Bilaterally Neck Neck Exam: Normal Inspection and Trachea Midline; negative Tenderness and Lymphadenopathy Chest Chest Inspection: Normal Inspection and Symmetric Chest Wall Rise; negative Tenderness Respiratory Respiratory Exam: Normal Lung Sounds Bilat and Respiratory Distress; negative Accessory Muscle Use and Chest Wall Tenderness Respiratory Exam: Bilateral: Rhonchi and Lower: Rhonchi Cardiovascular Cardiovascular Exam: Regular Rate, Normal Rhythm and Normal Heart Sounds; negative Systolic Murmur and Diastolic Murmur Abdominal Exam Abdominal Exam: Normal Inspection, Normal Bowel Sounds and Soft; negative Tenderness Extremities Extremities Exam: Normal Capillary Refill and Edema; negative Tenderness and Calf Tenderness Back Back Exam: Normal Inspection, (R) CVA Tenderness and (L) CVA Tenderness Neurologic Neurological Exam: Alert, Oriented X3 and CN II-XII Intact; negative Motor Sensory Deficit Psychiatric Psychiatric Exam: Normal Affect and Normal Mood Skin Skin Exam: Dry MDM Additional Information Obtained Additional Information Obtained From: Old Records Differential Diagnosis Differential Diagnosis: Bronchitis, CHF, Dysrhythmia, Hyponatremia, Mycardial Infarction, Pneumonia, Pneumothorax, Respiratory Failure, Respiratory Insufficiency, Sinusitis and URI COURSE Treatment Treatment: SEE ORDERS. NS 300CC IV BOLU7S. BP IMPROVING. D-DIMER ELEVATED. CTA NOT DONE DUE TO LOW GFR. PATIENT ON XARELTO ALSO. Consultation Consultation Comments: DISCUSSED PATIENT WITH DR. ROSE. HE WILL ADMIT PATIENT. Education/Counseling Education/Counseling: Patient Educated On: Diagnosis ROR Labs Reviewed Laboratory Results Reviewed?: Yes Result Diagrams: 08/04/20 09:08/04/20: Laboratory: WBC 17.6 X10^3/uL (3.6-10.0) H 08/04/20: RBC 3.19 X10^6/uL (3.5-5.4) L 08/04/20: Hgb 9.3 g/dL (12.0-16.0) L 08/04/20: Hct 28.8 % (36.0-47.0) L 08/04/20: MCV 90.3 fL (80.0-100.0) 08/04/20: MCH 29.2 pg (27.0-34.0) 08/04/20: MCHC 32.4 g/dL (33.0-35.0) L 08/04/20: RDW 14.7 % (11.6-16.5) 08/04/20 Plt Count 424 X10^3/uL (150.0-450.0) 08/04/20 MPV 7.7 fL (7.4-11.0) 08/04/20 Neut % (Auto) 89.7 % (42.0-75.0) H 08/04/20: Lymph % (Auto) 2.8 % (21.0-51.0) L 08/04/20: [place] % (Auto) 4.4 % (0.0-13.0) 08/04/20: Eos % (Auto) 2.7 % (0.9-2.9) 08/04/20 Baso % (Auto) 0.4 % (0.2-1.0) 08/04/20 Neut # (Auto) 15.8 x10^3/uL (2.2-4.8) H 02/21/21 09:29 Lymph # (Auto) 0.5 X10^3/uL (1.3-2.9) L 08/04/20 09:29 [place] # (Auto) 0.8 x10^3/uL (0.3-0.8) 08/04/20 09:29 Eos # (Auto) 0.5 x10^3/uL (0.0-0.2) H 08/04/20 09:29 Baso # (Auto) 0.1 X10^3/uL (0.0-0.1) 08/04/20 09:29 Absolute Nucleated RBC 0.0 /100WBC 08/04/20 09:29 D-Dimer 1.20 ug/ml (0.0-0.57) H* 08/04/20 09:29 Sample Site Lra 08/04/20 09:40 ABG pH 7.350 (7.35-7.45) 08/04/20 09:40 ABG pCO2 41.0 mmHg (35.0-45.0) 08/04/20 09:40 ABG pO2 59.0 mmHg (80.0-100.0) L 08/04/20 09:40 ABG HCO3 22.6 mmol/L (22-26) 08/04/20 09:40 ABG O2 Saturation 89.0 % (90-100) L 08/04/20 09:40 ABG Base Excess -2.9 mmol/L (-2.0-2.0) L 08/04/20 09:40 Parminder Test Pos 08/04/20 09:40 A-a Gradient 39.0 mmHg 08/04/20 09:40 FiO2 21.0 08/04/20 09:40 Blood Gas Comments Pt samantha well eb 08/04/20 09:40 Sodium 129 mmol/L (136-145) L 08/04/20 09:29 Corrected Sodium 129 mmol/L (136-145) L 08/04/20 09:29 Potassium 4.0 mmol/L (3.5-5.1) 08/04/20 09:29 Chloride 96 mmol/L (98-107) L 08/04/20 09:29 Carbon Dioxide 23.0 mmol/L (21-32) 08/04/20 09:29 BUN 35 mg/dL (7-18) H 08/04/20 09:29 Creatinine 2.16 mg/dL (0.55-1.02) H 08/04/20 09:29 Est GFR (MDRD) Af Amer 29 (>60) L 08/04/20 09: Est GFR (MDRD) Non-Af 24 (>60) L 08/04/20 09: Glucose 114 mg/dL (65-99) H 08/04/20 09: Calcium 9.0 mg/dL (8.5-10.1) 08/04/20 09: Corrected Calcium 10.3 mg/dL (8.5-10.1) H 08/04/20 09: Total Bilirubin 0.50 mg/dL (0.2-1.0) 08/04/20 09: AST 19 Units/L (15-37) 08/04/20 09: ALT 10 Units/L (12-78) L 08/04/20 09: Alkaline Phosphatase 77 Units/L (46-116) 08/04/20 09: Creatine Kinase 48 Units/L (26-192) 08/04/20 09:29 CK-MB (CK-2) 2.5 ng/mL (0-4.0) 08/04/20 09: CK/CKMB % Calc 5.2 % (<4) 08/04/20 09: Troponin I 0.89 ng/mL (0-1.5) 08/04/20 09: B-Natriuretic Peptide 662 pg/mL (0-79) H* 08/04/20 09: Total Protein 6.3 g/dL (6.4-8.2) L 08/04/20 09:29 Albumin 2.4 g/dL (3.4-5.0) L 08/04/20 09: Globulin 3.9 g/dL (2.5-4.5) 08/04/20 09: Albumin/Globulin Ratio 0.6 Ratio (1.1-2.1) L 08/04/20 09:29 SARS CoV-2 RNA Rapid MIKEY Negative (NEGATIVE) 08/04/20 12:00 XRAY XRAY Interpreted by: Radiologist (REPORT NOTED AND DISCUSSED WITH PATIENT.) and Self EKG Rate: 66 [place]: Normal Rhythm: NSR Block: 1 and IVCD Hypertrophy: None ST: Nonsp (LOW VOLTAGE.) Opioid Opioid Risk Tool Age (Blake box if 16-45): No History of Preadolescent Sexual Abuse: No Total: 0 Total Score Risk Category: Low Risk Copyright: Pete ALTAMIRANO predicting aberrant behaviors Diagnosis Discharge Problem: SOB (shortness of breath), Acute dehydration, Acute hyponatremia, Bronchitis, Acute renal insufficiency Anemia Qualifiers: Anemia type: unspecified type Qualified Code(s): D64.9 - Anemia, unspecified Hypotension Qualifiers: Hypotension type: hypotension due to hypovolemia Qualified Code(s): I95.89 - Other hypotension CHF (congestive heart failure) Qualifiers: Heart failure type: combined systolic and diastolic Heart failure chronicity: acute on chronic Qualified Code(s): I50.43 - Acute on chronic combined systolic (congestive) and diastolic (congestive) heart failure Instructions Forms: Precautions for COVID19 Patient Portal Social Distancing
[2020-08-04] MEDS ORDERED: NS 1000 ML 1,000 ML IV ONE (09:21)
[2020-08-04 09:37] LABS: BASOPHILS # (AUTO) 0.1 X10^3/uL (0.0-0.1); BASOPHILS % (AUTO) 0.4 % (0.2-1.0); EOSINOPHILS # (AUTO) 0.5 x10^3/uL (0.0-0.2); EOSINOPHILS % (AUTO) 2.7 % (0.9-2.9); HEMATOCRIT 28.8 % (36.0-47.0); HEMOGLOBIN 9.3 g/dL (12.0-16.0); LYMPHOCYTES # (AUTO) 0.5 X10^3/uL (1.3-2.9); LYMPHOCYTES % (AUTO) 2.8 % (21.0-51.0); MEAN CORPUSCULAR HEMOGLOBIN 29.2 pg (27.0-34.0); MEAN CORPUSCULAR HGB CONC 32.4 g/dL (33.0-35.0); MEAN CORPUSCULAR VOLUME 90.3 fL (80.0-100.0); MEAN PLATELET VOLUME 7.7 fL (7.4-11.0); MONOCYTES # (AUTO) 0.8 x10^3/uL (0.3-0.8); MONOCYTES % (AUTO) 4.4 % (0.0-13.0); NEUTROPHILS # (AUTO) 15.8 x10^3/uL (2.2-4.8); NEUTROPHILS % (AUTO) 89.7 % (42.0-75.0); PLATELET COUNT 424 X10^3/uL (150.0-450.0); RED BLOOD COUNT 3.19 X10^6/uL (3.5-5.4); RED CELL DISTRIBUTION WIDTH 14.7 % (11.6-16.5); WHITE BLOOD COUNT 17.6 X10^3/uL (3.6-10.0)
[2020-08-04 09:43] LABS: ABG ALLEN TEST POS; ABG BASE EXCESS -2.9 mmol/L (-2.0-2.0); ABG HCO3 22.6 mmol/L (22-26)
[2020-08-04] MEDS ORDERED: NS 1000 ML 1,000 ML ONE (09:48)
[2020-08-04 09:54] LABS: CREATININE 2.16 mg/dL (0.55-1.02); TROPONIN I 0.89 ng/mL (0-1.5)
[2020-08-04 09:58] LABS: ALBUMIN 2.4 g/dL (3.4-5.0); CKMB % 5.2 % (<4); COR CA(FOR HYPOALB) 10.3 mg/dL (8.5-10.1); CREATINE KINASE MB 2.5 ng/mL (0-4.0); TOTAL PROTEIN 6.3 g/dL (6.4-8.2)
--- NOTE | 2020-08-04 10:31 | RAD ---
HISTORYPt here with shortness of breath, dizziness, and low O2 sats. Son states pt's sats have been in the 80-90s, was in [place] last week and had a cardiac ablation on . Pt also reports cough and L arm pain.STUDYCHEST, 1 [id number]/09/2021FINDINGSUnderinflation. Cardiomegaly appears increased. Pulmonary vascular co ngestion with developing interstitial densities. No sizable effusion or visible pneumothorax. No acut e osseous finding.IMPRESSIONCardiomegaly appears increased. Underinflation with suggestion of CHF. Ernandez perimposed infection not excluded.Electronically signed by: Alex Mora (Aug 04, 2020 10:29:45)
[2020-08-04] MEDS ORDERED: LEVAQUIN PREMIX IV 500 MG 500 MG/100 ML BAG IV ONE ×2 (11:52→13:38)
[2020-08-04 15:33] LABS: CKMB % 6.8 % (<4); CREATINE KINASE MB 2.6 ng/mL (0-4.0); TROPONIN I 0.65 ng/mL (0-1.5)
[2020-08-04] MEDS: LASIX IVP SCH (16:40)
[2020-08-04] MEDS ORDERED: ZOFRAN TAB 4 MG PO PRN (17:36)
[2020-08-04] MEDS: SYNTHROID 25 mcg TAB PO SCH (18:25)
[2020-08-04] MEDS: ASPIRIN EC 81 MG PO SCH (18:25)
[2020-08-04] MEDS: CYMBALTA PO SCH (18:25)
[2020-08-04] MEDS: CORDARONE TAB 200 MG PO SCH (18:25)
[2020-08-04] MEDS: CARDIZEM CD 360 MG 24-HR PO SCH (18:26)
[2020-08-04 20:11] LABS: BILIRUBIN,URINE NEGATIVE (NEGATIVE); BLOOD/HEMOGLOBIN,URINE NEGATIVE (NEGATIVE); GLUCOSE, URINE NEGATIVE (NEGATIVE); KETONES,URINE NEGATIVE (NEGATIVE); LEUKOCYTE ESTERASE ,URINE 1+ (NEGATIVE); NITRITES,URINE NEGATIVE (NEGATIVE); PROTEIN,URINE NEGATIVE (NEGATIVE); UROBILINOGEN,URINE NORMAL (NORMAL)
[2020-08-04 20:23] LABS: APPEARANCE,URINE CLEAR (CLEAR); COLOR,URINE STRAW (YELLOW)
[2020-08-04 20:24] LABS: BACTERIA,URINE TRACE /HPF (NEGATIVE); HYALINE CASTS, URINE FEW /LPF (NEGATIVE); RBC,URINE NONE SEEN /HPF (0-3); SQUAMOUS EPITHELIAL CELL,UR FEW /HPF (NEGATIVE)
[2020-08-04] MEDS: PriLOSEC PO SCH (21:25)
[2020-08-04] MEDS: PRAVACHOL PO SCH (21:25)
[2020-08-04] MEDS: NS 1000 ML 1,000 ML IV SCH (21:25)
[2020-08-04] MEDS: AMBIEN PO PRN (21:26)
[2020-08-04] MEDS: NORCO 5/325 MG TAB PO PRN (21:26)
[2020-08-04 21:50] LABS: CKMB % 5.9 % (<4); CREATINE KINASE MB 2.3 ng/mL (0-4.0); TROPONIN I 0.57 ng/mL (0-1.5)
[2020-08-05] MEDS: COREG TAB 25 MG PO SCH ×3 (01:55→20:27)
[2020-08-05] MEDS: NORCO 5/325 MG TAB PO PRN ×3 (03:30→15:15)
[2020-08-05] MEDS: NS 1000 ML 1,000 ML IV SCH ×2 (04:43→14:58)
[2020-08-05 06:10] LABS: BASOPHILS # (AUTO) 0.1 X10^3/uL (0.0-0.1); BASOPHILS % (AUTO) 0.3 % (0.2-1.0); EOSINOPHILS # (AUTO) 0.5 x10^3/uL (0.0-0.2); EOSINOPHILS % (AUTO) 2.6 % (0.9-2.9); HEMATOCRIT 28.3 % (36.0-47.0); HEMOGLOBIN 9.4 g/dL (12.0-16.0); LYMPHOCYTES # (AUTO) 0.4 X10^3/uL (1.3-2.9); LYMPHOCYTES % (AUTO) 2.2 % (21.0-51.0); MEAN CORPUSCULAR HEMOGLOBIN 29.7 pg (27.0-34.0); MEAN CORPUSCULAR HGB CONC 33.2 g/dL (33.0-35.0); MEAN CORPUSCULAR VOLUME 89.6 fL (80.0-100.0); MEAN PLATELET VOLUME 8.4 fL (7.4-11.0); MONOCYTES # (AUTO) 0.8 x10^3/uL (0.3-0.8); MONOCYTES % (AUTO) 4.2 % (0.0-13.0); NEUTROPHILS # (AUTO) 17.9 x10^3/uL (2.2-4.8); NEUTROPHILS % (AUTO) 90.7 % (42.0-75.0); PLATELET COUNT 468 X10^3/uL (150.0-450.0); RED BLOOD COUNT 3.16 X10^6/uL (3.5-5.4); WHITE BLOOD COUNT 19.7 X10^3/uL (3.6-10.0)
[2020-08-05 06:21] LABS: ALANINE AMINOTRANSFERASE 9 Units/L (12-78); ALBUMIN 2.3 g/dL (3.4-5.0); ALKALINE PHOSPHATASE 84 Units/L (46-116); ASPARTATE AMINO TRANSFERASE 16 Units/L (15-37); BLOOD UREA NITROGEN 30 mg/dL (7-18); CALCIUM 9.4 mg/dL (8.5-10.1); CARBON DIOXIDE 23.5 mmol/L (21-32); CHLORIDE 97 mmol/L (98-107); COR CA(FOR HYPOALB) 10.8 mg/dL (8.5-10.1); CREATININE 1.53 mg/dL (0.55-1.02); MAGNESIUM 1.5 mg/dL (1.7-2.9); SODIUM 130 mmol/L (136-145); TOTAL PROTEIN 6.5 g/dL (6.4-8.2); eGFR NON BLACK RACES 36 (>60)
[2020-08-05 06:47] LABS: PLATELET MORPHOLOGY COMMENT NORMAL (NORMAL)
[2020-08-05] MEDS: ASPIRIN EC 81 MG PO SCH (09:27)
[2020-08-05] MEDS: CARDIZEM CD 360 MG 24-HR PO SCH (09:27)
[2020-08-05] MEDS: CORDARONE TAB 200 MG PO SCH (09:28)
[2020-08-05] MEDS: XARELTO PO SCH (09:28)
[2020-08-05] MEDS: CYMBALTA PO SCH (09:29)
[2020-08-05] MEDS: LASIX IVP SCH ×3 (09:29→16:59)
--- NOTE | 2020-08-05 09:40 | RAD ---
HISTORYChest painSTUDYChest AP [id number]/21/2021FINDINGSHypo inflation accentuates the heart size. It is likely still enlarged. No congestive heart failure is noted. No infiltrates or pleural effusions identified. Bony thorax is unremarkable.IMPRESSIONCardiomegaly without congestive heart failureLungs hypoinflated but clearElectronically signed by: KATYA VELAZQUEZ (Aug 05, 2020 09:38:02)
[2020-08-05 13:26] LABS: BILIRUBIN,URINE NEGATIVE (NEGATIVE); BLOOD/HEMOGLOBIN,URINE NEGATIVE (NEGATIVE); GLUCOSE, URINE NEGATIVE (NEGATIVE); KETONES,URINE NEGATIVE (NEGATIVE); LEUKOCYTE ESTERASE ,URINE 1+ (NEGATIVE); NITRITES,URINE NEGATIVE (NEGATIVE); PROTEIN,URINE NEGATIVE (NEGATIVE); UROBILINOGEN,URINE NORMAL (NORMAL)
[2020-08-05] MEDS ORDERED: XOPENEX 1.25 MG/3 ML NEBULE NEB ONE (13:31)
[2020-08-05] MEDS: ROCEPHIN VIAL 1 GRAM 1 G in NS 100 ML IV + SPIKE MINIBAG* 100 ML IV SCH (13:43)
[2020-08-05 13:53] LABS: APPEARANCE,URINE CLEAR (CLEAR); COLOR,URINE PALE YELLOW (YELLOW); RBC,URINE 0-2 /HPF (0-3); SQUAMOUS EPITHELIAL CELL,UR RARE /HPF (NEGATIVE)
[2020-08-05 13:54] LABS: BACTERIA,URINE TRACE /HPF (NEGATIVE)
[2020-08-05] MEDS: XOPENEX 1.25 MG/3 ML NEBULE NEB SCH ×2 (14:22→21:09)
[2020-08-05 14:43] LABS: RHEUMATOID FACTOR NEGATIVE (NEGATIVE)
[2020-08-05] MEDS: SYNTHROID 25 mcg TAB PO SCH (16:58)
--- NOTE | 2020-08-05 17:22 | DR.H&P ---
H&P - History & Physical for Day of: H&P Date: 08/04/20 - Chief Complaint Chief Complaint: SOB, HURTING ALL OVER - History of Present Illness History of Present Illness: PATIENT IS 70YR OLD FEMALE IN ER WITH INCREASING SOB AND O2 SAT. SHE IS COUGHING, DIZZY AND HAVE LEFT ARM PAIN. SHE HAD CARDIAC ABLATION WEDNESDAY FOR A FIB. ADMITTED TO HOSPITAL AND TRANSFER TO [facility] ON 07/24/2020. STARTED GETTING WORSE LAST YESTERDAY. ARM PAIN /, SHARP AND RADIATES TO FOREARM. NO FEVER. - Past Medical History Past Medical History: Hypertension, Dyslipidemia, Hypothyroidism, Sleep Apnea, CHF Additional Medical History: HX AFIB - Past Surgical History Surgical History: Angioplasty/Stents, Cholecystectomy, Hysterectomy - Family History Family Medical History: Diabetes Mellitus - Social History Does patient currently use any type of tobacco product: No Have you used tobacco products in the last 12 months: No Type of Tobacco Use: None Does any household member use tobacco: No Alcohol Use: None Drug Use: None - Medications Home Medications: metoclopramide [From Reglan] Allergy (Verified 07/18/20 11:52) Penicillins Allergy (Verified 07/18/20 11:52) Sulfa (Sulfonamide Antibiotics) [SULFA] Allergy (Verified 07/18/20 11:52) CONTINUE taking the following medications amiodarone 200 mg PO DAILY 08/04/20 [History] carvedilol 25 mg PO BID 08/04/20 [History] diltiazem HCl 360 mg PO DAILY 08/04/20 [History] gabapentin 100 mg PO TID 08/04/20 [History] ondansetron HCl 8 mg PO Q8H PRN 08/04/20 [History] rivaroxaban [Xarelto] 20 mg PO DAILY 08/04/20 [History] - Review of Systems Constitutional: Weakness, Malaise Eyes: No Symptoms Reported ENT: No Symptoms Reported Respiratory: Shortness of Breath, SOB with Excertion Cardiovascular: Edema Gastrointestinal: Nausea Genitourinary: No Symptoms Reported Musculoskeletal: Arm Pain, Back Pain, Leg Pain Skin: No Symptoms Reported Neurological: Weakness - Physical Exam Vital Signs: Temperature 97.6 F Pulse Rate [Apical] 73 Pulse Rate 75 Respiratory Rate 20 Blood Pressure [Right Arm] 95/50 Blood Pressure 114/57 O2 Sat by Pulse Oximetry 96 Oriented: Normal Eyes: Normal Ear: Normal Nose: Normal Throat: Normal Respiratory: Rales Throughout, RML Diminished, RLL Diminished, LML Diminished, LLL Diminished Cardiovascular: Normal, Edema : Normal Auscultation: Bowel Sounds: Normal Palpation: Normal Tenderness: Normal Skin: Decreased Turgur Musculoskeletal: Back:Lumbar, Tender Psychiatric: Anxiety Affect: Anxious Speech Pattern: Clear, Appropriate - Assessment/Plan (1) Acute heart failure Status: Acute Plan: ADMIT, SERIAL CE, BP CONTROL. CONTINUOUS CARDIAC MONITORING. VERIFY AND RESUME HOME MEDICATION, IV LASIX. STRICT I&OS (2) Dehydration Status: Acute (3) SOB (shortness of breath) Status: Acute (4) CHF (congestive heart failure) Status: Acute (5) CAD (coronary artery disease) Status: Acute (6) Atrial fibrillation Status: Acute - Allergies Allergies/Adverse Reactions: Allergies Allergy/AdvReac Type Severity Reaction Status Date / Time metoclopramide [From Reglan] Allergy Verified 07/18/20 11:52 Penicillins Allergy Verified 07/18/20 11:52 Sulfa (Sulfonamide Allergy Verified 07/18/20 11:52 Antibiotics) [SULFA]
[2020-08-05] MEDS ORDERED: K-DUR TAB 20 MEQ PO PRN (19:51)
[2020-08-05] MEDS ORDERED: POTASSIUM CHL 60 MEQ/NS 0.45% 500 ML IV PRN (19:51)
[2020-08-05] MEDS ORDERED: POTASSIUM CHL 40 MEQ/NS 0.45% 500 ML IV PRN (19:51)
[2020-08-05] MEDS ORDERED: MICRO K EXTEN CAP 10 MEQ PO PRN (19:51)
[2020-08-05] MEDS ORDERED: POTASSIUM CHLORIDE LIQ 20 MEQ UDC PO PRN (19:51)
[2020-08-05] MEDS ORDERED: KLOR-CON PO PRN (19:51)
[2020-08-05] MEDS: PRAVACHOL PO SCH (20:27)
[2020-08-05] MEDS: PriLOSEC PO SCH (20:27)
[2020-08-05] MEDS: MAGNESIUM SULFATE 1 GRAM/100 mL PREMIX 1 GM/100 ML BAG IV PRN ×2 (20:29→21:50)
[2020-08-05] MEDS: NEURONTIN CAP 100 MG PO SCH (21:50)
[2020-08-05] MEDS ORDERED: MAALOX or MYLANTA ONE (23:32)
[2020-08-05] MEDS: MAALOX or MYLANTA PO PRN (23:36)
[2020-08-06] MEDS: NORCO 5/325 MG TAB PO PRN (02:30)
[2020-08-06] MEDS: NS 1000 ML 1,000 ML IV SCH ×2 (03:22→18:07)
[2020-08-06] MEDS: XOPENEX 1.25 MG/3 ML NEBULE NEB SCH ×3 (05:22→21:42)
[2020-08-06] MEDS: NEURONTIN CAP 100 MG PO SCH ×3 (05:28→21:42)
[2020-08-06 06:26] LABS: BASOPHILS % (AUTO) 0.2 % (0.2-1.0); EOSINOPHILS # (AUTO) 0.3 x10^3/uL (0.0-0.2); EOSINOPHILS % (AUTO) 2.3 % (0.9-2.9); HEMATOCRIT 28.6 % (36.0-47.0); HEMOGLOBIN 9.4 g/dL (12.0-16.0); LYMPHOCYTES # (AUTO) 0.5 X10^3/uL (1.3-2.9); LYMPHOCYTES % (AUTO) 3.5 % (21.0-51.0); MEAN CORPUSCULAR HEMOGLOBIN 29.5 pg (27.0-34.0); MEAN CORPUSCULAR HGB CONC 32.9 g/dL (33.0-35.0); MEAN CORPUSCULAR VOLUME 89.6 fL (80.0-100.0); MEAN PLATELET VOLUME 8.2 fL (7.4-11.0); NEUTROPHILS # (AUTO) 12.5 x10^3/uL (2.2-4.8); PLATELET COUNT 457 X10^3/uL (150.0-450.0); RED BLOOD COUNT 3.19 X10^6/uL (3.5-5.4); RED CELL DISTRIBUTION WIDTH 14.9 % (11.6-16.5); WHITE BLOOD COUNT 14.4 X10^3/uL (3.6-10.0)
[2020-08-06 06:46] LABS: ALANINE AMINOTRANSFERASE 12 Units/L (12-78); ALBUMIN 2.2 g/dL (3.4-5.0); ALKALINE PHOSPHATASE 85 Units/L (46-116); ASPARTATE AMINO TRANSFERASE 15 Units/L (15-37); BLOOD UREA NITROGEN 21 mg/dL (7-18); CALCIUM 9.5 mg/dL (8.5-10.1); CARBON DIOXIDE 25.5 mmol/L (21-32); CHLORIDE 97 mmol/L (98-107); COR CA(FOR HYPOALB) 10.9 mg/dL (8.5-10.1); CREATININE 1.11 mg/dL (0.55-1.02); MAGNESIUM 1.9 mg/dL (1.7-2.9); SODIUM 131 mmol/L (136-145); TOTAL PROTEIN 6.4 g/dL (6.4-8.2); eGFR NON BLACK RACES 52 (>60)
--- NOTE | 2020-08-06 09:11 | RAD ---
HISTORYCongestive heart failureSTUDYChest AP [id number] July 2020FINDINGSHypo inflation accentuates the heart size. It is likely still enlarged. The eveline are normal. No definite congestive heart failure is identified. Right-sided perihilar interstitial lung changes are now present. The left lung is clear. No alveolar infiltrates or pleural effusions are identified.IMPRESSIONCardiomegaly without congestive heart failureHypo inflationRight perihilar interstitial lung changes now presentElectronically signed by: KATYA VELAZQUEZ (Aug 06, 2020 09:10:06)
[2020-08-06] MEDS: COREG TAB 25 MG PO SCH ×2 (09:33→20:33)
[2020-08-06] MEDS: CORDARONE TAB 200 MG PO SCH (09:33)
[2020-08-06] MEDS: CARDIZEM CD 360 MG 24-HR PO SCH (09:33)
[2020-08-06] MEDS: ASPIRIN EC 81 MG PO SCH (09:33)
[2020-08-06] MEDS: CYMBALTA PO SCH (09:34)
[2020-08-06] MEDS: LASIX IVP SCH ×2 (09:34→16:19)
[2020-08-06] MEDS: ROCEPHIN VIAL 1 GRAM 1 G in NS 100 ML IV + SPIKE MINIBAG* 100 ML IV SCH (09:34)
[2020-08-06] MEDS: XARELTO PO SCH (09:34)
[2020-08-06] MEDS: HEMOCYTE-PLUS PO SCH (11:47)
[2020-08-06] MEDS: SOLU-Medrol 40 MG VIAL IVP SCH ×3 (11:47→21:43)
--- NOTE | 2020-08-06 12:32 | CT ---
HISTORYAMS congestive heart failure. Hypertension.STUDYBRAIN W/O CONCOMPARISONHead CT 07/09/2017TECHNIQUEMultiple CT axial images of the head were obtained without IV contrast. Coronal and sagittal images were reconstructed. Dose reduction techniques included Automated Exposure Control (AEC) and adjustment of mA and kV.FINDINGSMinimal age related changes present.Varner and white matter have normal differentiation. There is no mass, shift, or hemorrhage. Cerebellar tonsils are at an appropriate level. No fluid in the sinuses or mucosal thickening to suggest sinusitis. There is no mastoid effusion.IMPRESSION1. No acute findingElectronically signed by: Puma Ling (Aug 06, 2020 12:31:37)
[2020-08-06] MEDS: ZOFRAN INJ 4 MG VIAL IVP PRN (12:58)
[2020-08-06] MEDS: PROTONIX INJ 40 MG VIAL IVP SCH ×2 (13:13→20:31)
[2020-08-06] MEDS: SYNTHROID 25 mcg TAB PO SCH (16:18)
[2020-08-06] MEDS: PRAVACHOL PO SCH (20:33)
[2020-08-06] MEDS: PriLOSEC PO SCH (20:33)
[2020-08-06] MEDS: MAGNESIUM SULFATE 1 GRAM/100 mL PREMIX 1 GM/100 ML BAG IV PRN ×2 (20:51→21:45)
[2020-08-06] MEDS: K-RIDER 10 MEQ/NS 100 ML 10 MEQ/100 ML BAG IV PRN ×2 (20:55→21:44)
[2020-08-06] MEDS: AMBIEN PO PRN (21:42)
[2020-08-07] MEDS: NEURONTIN CAP 100 MG PO SCH ×3 (05:20→21:19)
[2020-08-07] MEDS: SOLU-Medrol 40 MG VIAL IVP SCH ×3 (05:21→21:16)
[2020-08-07 06:12] LABS: BASOPHILS % (AUTO) 0.2 % (0.2-1.0); HEMATOCRIT 26.5 % (36.0-47.0); HEMOGLOBIN 9.1 g/dL (12.0-16.0); LYMPHOCYTES # (AUTO) 0.4 X10^3/uL (1.3-2.9); LYMPHOCYTES % (AUTO) 3.7 % (21.0-51.0); MEAN CORPUSCULAR HEMOGLOBIN 30.2 pg (27.0-34.0); MEAN CORPUSCULAR HGB CONC 34.3 g/dL (33.0-35.0); MEAN CORPUSCULAR VOLUME 87.9 fL (80.0-100.0); MEAN PLATELET VOLUME 7.9 fL (7.4-11.0); MONOCYTES # (AUTO) 0.3 x10^3/uL (0.3-0.8); MONOCYTES % (AUTO) 3.2 % (0.0-13.0); NEUTROPHILS # (AUTO) 8.9 x10^3/uL (2.2-4.8); NEUTROPHILS % (AUTO) 92.9 % (42.0-75.0); PLATELET COUNT 484 X10^3/uL (150.0-450.0); RED BLOOD COUNT 3.02 X10^6/uL (3.5-5.4); RED CELL DISTRIBUTION WIDTH 14.9 % (11.6-16.5); WHITE BLOOD COUNT 9.6 X10^3/uL (3.6-10.0)
--- NOTE | 2020-08-07 06:12 | RAD ---
HISTORYCongestive heart failureSTUDYChest AP [id number]/23/2021FINDINGSThe heart remains enlarged. No definite congestive heart failure is noted. The lungs are hypoinflated. Right-sided perihilar interstitial infiltrates are unchanged. There is now some left-sided perihilar interstitial infiltrate. No alveolar infiltrates, ground-glass infiltrates areas of consolidation or pleural effusions are identified. Bony thorax is unremarkable.IMPRESSIONCardiomegaly without congestive heart failureContinued hypo inflationNo change right perihilar interstitial infiltrate, new left perihilar interstitial infiltrateElectronically signed by: KATYA VELAZQUEZ (Aug 07, 2020 06:10:56)
[2020-08-07] MEDS: NS 1000 ML 1,000 ML IV SCH ×2 (06:17→21:11)
[2020-08-07] MEDS: XOPENEX 1.25 MG/3 ML NEBULE NEB SCH ×3 (06:24→20:20)
[2020-08-07 06:37] LABS: ALANINE AMINOTRANSFERASE 10 Units/L (12-78); ALBUMIN 2.2 g/dL (3.4-5.0); ALKALINE PHOSPHATASE 78 Units/L (46-116); ASPARTATE AMINO TRANSFERASE 13 Units/L (15-37); BLOOD UREA NITROGEN 18 mg/dL (7-18); CALCIUM 9.2 mg/dL (8.5-10.1); CARBON DIOXIDE 28.2 mmol/L (21-32); CHLORIDE 97 mmol/L (98-107); COR CA(FOR HYPOALB) 10.6 mg/dL (8.5-10.1); COR NA(FOR HYPERGLY) 135 mmol/L (136-145); CREATININE 0.93 mg/dL (0.55-1.02); MAGNESIUM 2.2 mg/dL (1.7-2.9); SODIUM 134 mmol/L (136-145); TOTAL PROTEIN 6.4 g/dL (6.4-8.2); eGFR NON BLACK RACES > 60 (>60)
[2020-08-07 06:52] LABS: PLATELET MORPHOLOGY COMMENT NORMAL (NORMAL)
[2020-08-07 09:33] LABS: CKMB % 6.3 % (<4); CREATINE KINASE 16 Units/L (26-192); CREATINE KINASE MB < 1.0 ng/mL (0-4.0)
[2020-08-07] MEDS: ZOFRAN INJ 4 MG VIAL IVP PRN (09:55)
[2020-08-07] MEDS: ASPIRIN EC 81 MG PO SCH (10:00)
[2020-08-07] MEDS: CORDARONE TAB 200 MG PO SCH (10:00)
[2020-08-07] MEDS: PROTONIX INJ 40 MG VIAL IVP SCH ×2 (10:00→21:17)
[2020-08-07] MEDS: COREG TAB 25 MG PO SCH ×2 (10:00→21:19)
[2020-08-07] MEDS: ROCEPHIN VIAL 1 GRAM 1 G in NS 100 ML IV + SPIKE MINIBAG* 100 ML IV SCH (10:00)
[2020-08-07] MEDS: CARDIZEM CD 360 MG 24-HR PO SCH (10:00)
[2020-08-07] MEDS: XARELTO PO SCH (10:00)
[2020-08-07] MEDS: CYMBALTA PO SCH (10:00)
[2020-08-07] MEDS: HEMOCYTE-PLUS PO SCH (10:00)
--- NOTE | 2020-08-07 12:05 | VAS ---
HISTORYBilateral leg pain and elevated D-dimerSTUDYLOWER EXT VENOUS, BILATERALCOMPARISONNoneFINDINGSUltrasound evaluation of the deep venous system of both legs was perfo rmed from the level of the inguinal ligament down to the calf. Deep system is widely patent with good flow and compressibility seen along its course. No evidence of intraluminal thrombus is identified i n either leg.IMPRESSIONNo deep vein thrombosis is seen in either lower extremity.Electronically julio d by: SUE REYEZ (Aug 07, 2020 12:03:17)
--- NOTE | 2020-08-07 12:14 | CT ---
HISTORYSOB, ELEV D DIMERSTUDYCTA [id number]/05/2021TECHNIQUECT of the chest was obtained with IV contrast. Reformatted images in the coronal sagittal planes and 3D MIP images also generated for review.FINDINGSContrast bolus timing is adequate for detection of PTE. No pulmonary thromboembolus is identified. There is no pulmonary arterial dilatation or evidence of right heart strain. The heart is mildly enlarged and there is a stable small pericardial effusion. Moderate coronary atherosclerotic disease and mild calcification of the thoracic aorta and proximal great vessels noted without aneurysm. Central airways are patent. There is no mediastinal or bulky hilar lymphadenopathy.Evaluation of the lungs demonstrate persistent but overall improved patchy ground-glass opacities throughout all lobes bilaterally. There is a new trace right pleural effusion. No pneumothorax.Large hiatal hernia noted. Limited images through the upper abdomen demonstrate no acute abnormality. No acute osseous abnormality is identified.IMPRESSION1. No PTE identified.2. Stable cardiomegaly, small pericardial effusion and persistent but improving bilateral ground-glass opacities, which likely reflect improving pulmonary edema. However, correlate clinically for underlying infection.3. New trace right pleural effusion, large hiatal hernia and additional chronic/nonacute findings as detailed above.Electronically signed by: OLAF CHUNG (Aug 07, 2020 12:13:25)
[2020-08-07] MEDS: K-RIDER 10 MEQ/NS 100 ML 10 MEQ/100 ML BAG IV PRN ×2 (13:33→16:00)
[2020-08-07] MEDS: SYNTHROID 25 mcg TAB PO SCH (16:11)
[2020-08-07] MEDS: PRAVACHOL PO SCH (21:19)
[2020-08-07] MEDS: PriLOSEC PO SCH (21:19)
[2020-08-07] MEDS: COLACE CAP 100 MG PO SCH (21:19)
[2020-08-07] MEDS: NORCO 5/325 MG TAB PO PRN (21:19)
[2020-08-07] MEDS: MILK OF MAGNESIA PO PRN (21:20)
[2020-08-07] MEDS: AMBIEN PO PRN (21:33)
[2020-08-08] MEDS: SOLU-Medrol 40 MG VIAL IVP SCH ×2 (05:26→21:15)
[2020-08-08] MEDS: NEURONTIN CAP 100 MG PO SCH ×3 (05:27→21:15)
[2020-08-08] MEDS: XOPENEX 1.25 MG/3 ML NEBULE NEB SCH ×3 (06:28→20:48)
[2020-08-08] MEDS: CYMBALTA PO SCH (09:41)
[2020-08-08] MEDS: PROTONIX INJ 40 MG VIAL IVP SCH ×2 (09:41→21:15)
[2020-08-08] MEDS: COLACE CAP 100 MG PO SCH ×2 (09:41→21:14)
[2020-08-08] MEDS: CARDIZEM CD 360 MG 24-HR PO SCH (09:42)
[2020-08-08] MEDS: ASPIRIN EC 81 MG PO SCH (09:42)
[2020-08-08] MEDS: COREG TAB 25 MG PO SCH ×2 (09:42→21:14)
[2020-08-08 09:43] LABS: BASOPHILS # (AUTO) 0.1 X10^3/uL (0.0-0.1); BASOPHILS % (AUTO) 0.6 % (0.2-1.0); HEMATOCRIT 31.9 % (36.0-47.0); HEMOGLOBIN 10.3 g/dL (12.0-16.0); LYMPHOCYTES # (AUTO) 0.5 X10^3/uL (1.3-2.9); LYMPHOCYTES % (AUTO) 3.8 % (21.0-51.0); MEAN CORPUSCULAR HEMOGLOBIN 28.8 pg (27.0-34.0); MEAN CORPUSCULAR HGB CONC 32.3 g/dL (33.0-35.0); MEAN CORPUSCULAR VOLUME 89.3 fL (80.0-100.0); MEAN PLATELET VOLUME 7.6 fL (7.4-11.0); MONOCYTES # (AUTO) 0.5 x10^3/uL (0.3-0.8); MONOCYTES % (AUTO) 4.2 % (0.0-13.0); NEUTROPHILS # (AUTO) 11.4 x10^3/uL (2.2-4.8); NEUTROPHILS % (AUTO) 91.4 % (42.0-75.0); PLATELET COUNT 591 X10^3/uL (150.0-450.0); RED BLOOD COUNT 3.57 X10^6/uL (3.5-5.4); RED CELL DISTRIBUTION WIDTH 15.2 % (11.6-16.5); WHITE BLOOD COUNT 12.4 X10^3/uL (3.6-10.0)
[2020-08-08] MEDS: HEMOCYTE-PLUS PO SCH (09:43)
[2020-08-08] MEDS: XARELTO PO SCH (09:43)
[2020-08-08] MEDS: ROCEPHIN VIAL 1 GRAM 1 G in NS 100 ML IV + SPIKE MINIBAG* 100 ML IV SCH (09:43)
[2020-08-08 09:55] LABS: ALANINE AMINOTRANSFERASE 17 Units/L (12-78); ALBUMIN 2.3 g/dL (3.4-5.0); ALKALINE PHOSPHATASE 75 Units/L (46-116); ASPARTATE AMINO TRANSFERASE 18 Units/L (15-37); BLOOD UREA NITROGEN 27 mg/dL (7-18); CALCIUM 9.3 mg/dL (8.5-10.1); CARBON DIOXIDE 28.9 mmol/L (21-32); CHLORIDE 99 mmol/L (98-107); COR CA(FOR HYPOALB) 10.7 mg/dL (8.5-10.1); COR NA(FOR HYPERGLY) 137 mmol/L (136-145); CREATININE 1.15 mg/dL (0.55-1.02); SODIUM 135 mmol/L (136-145); TOTAL PROTEIN 6.5 g/dL (6.4-8.2); eGFR NON BLACK RACES 50 (>60)
[2020-08-08] MEDS: NS 1000 ML 1,000 ML IV SCH ×2 (09:55→21:14)
[2020-08-08] MEDS: CORDARONE TAB 200 MG PO SCH (09:56)
[2020-08-08 09:59] LABS: BAND NEUTROPHILS % 1 % (0-10); PLATELET MORPHOLOGY COMMENT NORMAL (NORMAL)
[2020-08-08] MEDS: MILK OF MAGNESIA PO PRN (11:46)
[2020-08-08] MEDS ORDERED: NS 100 ML IV 100 ML with VENOFER 400 MG IV NR ×2 (14:00)
[2020-08-08] MEDS ORDERED: CHLORASEPTIC SPRAY MT PRN (15:12)
[2020-08-08] MEDS: SYNTHROID 25 mcg TAB PO SCH (17:23)
[2020-08-08] MEDS: MAALOX or MYLANTA PO PRN (18:35)
[2020-08-08] MEDS: LASIX IVP SCH (21:14)
[2020-08-08] MEDS: PRAVACHOL PO SCH (21:14)
[2020-08-08] MEDS: PriLOSEC PO SCH (21:15)
[2020-08-08] MEDS: AMBIEN PO PRN (23:00)
[2020-08-09] MEDS: XOPENEX 1.25 MG/3 ML NEBULE NEB SCH ×3 (05:30→20:56)
[2020-08-09] MEDS: NEURONTIN CAP 100 MG PO SCH ×3 (06:04→23:05)
[2020-08-09 06:48] LABS: BASOPHILS % (AUTO) 0.1 % (0.2-1.0); HEMATOCRIT 31.9 % (36.0-47.0); HEMOGLOBIN 10.2 g/dL (12.0-16.0); LYMPHOCYTES # (AUTO) 0.5 X10^3/uL (1.3-2.9); LYMPHOCYTES % (AUTO) 3.3 % (21.0-51.0); MEAN CORPUSCULAR HEMOGLOBIN 28.6 pg (27.0-34.0); MEAN CORPUSCULAR HGB CONC 31.9 g/dL (33.0-35.0); MEAN CORPUSCULAR VOLUME 89.7 fL (80.0-100.0); MEAN PLATELET VOLUME 7.8 fL (7.4-11.0); MONOCYTES # (AUTO) 1.4 x10^3/uL (0.3-0.8); MONOCYTES % (AUTO) 8.9 % (0.0-13.0); NEUTROPHILS # (AUTO) 13.7 x10^3/uL (2.2-4.8); NEUTROPHILS % (AUTO) 87.7 % (42.0-75.0); PLATELET COUNT 566 X10^3/uL (150.0-450.0); RED BLOOD COUNT 3.55 X10^6/uL (3.5-5.4); RED CELL DISTRIBUTION WIDTH 15.1 % (11.6-16.5); WHITE BLOOD COUNT 15.6 X10^3/uL (3.6-10.0)
[2020-08-09 06:52] LABS: ALANINE AMINOTRANSFERASE 18 Units/L (12-78); ALBUMIN 2.3 g/dL (3.4-5.0); ALKALINE PHOSPHATASE 66 Units/L (46-116); ASPARTATE AMINO TRANSFERASE 19 Units/L (15-37); BLOOD UREA NITROGEN 32 mg/dL (7-18); CALCIUM 8.7 mg/dL (8.5-10.1); CARBON DIOXIDE 30.6 mmol/L (21-32); CHLORIDE 101 mmol/L (98-107); COR CA(FOR HYPOALB) 10.1 mg/dL (8.5-10.1); COR NA(FOR HYPERGLY) 139 mmol/L (136-145); CREATININE 0.95 mg/dL (0.55-1.02); SODIUM 138 mmol/L (136-145); TOTAL PROTEIN 6.1 g/dL (6.4-8.2); eGFR NON BLACK RACES > 60 (>60)
[2020-08-09 07:04] LABS: BAND NEUTROPHILS % 2 % (0-10); MYELOCYTES % 1; PLATELET MORPHOLOGY COMMENT NORMAL (NORMAL)
[2020-08-09] MEDS: ROCEPHIN VIAL 1 GRAM 1 G in NS 100 ML IV + SPIKE MINIBAG* 100 ML IV SCH (09:02)
[2020-08-09] MEDS: SOLU-Medrol 40 MG VIAL IVP SCH ×2 (09:02→20:46)
[2020-08-09] MEDS: PROTONIX INJ 40 MG VIAL IVP SCH ×2 (09:02→20:46)
[2020-08-09] MEDS: LASIX IVP SCH (09:03)
[2020-08-09] MEDS: CARDIZEM CD 360 MG 24-HR PO SCH (09:03)
[2020-08-09] MEDS: ASPIRIN EC 81 MG PO SCH (09:04)
[2020-08-09] MEDS: CYMBALTA PO SCH (09:05)
[2020-08-09] MEDS: CORDARONE TAB 200 MG PO SCH (09:05)
[2020-08-09] MEDS: COLACE CAP 100 MG PO SCH ×3 (09:06→20:45)
[2020-08-09] MEDS: COREG TAB 25 MG PO SCH ×2 (09:07→20:45)
[2020-08-09] MEDS: XARELTO PO SCH (09:07)
[2020-08-09] MEDS: HEMOCYTE-PLUS PO SCH (09:07)
[2020-08-09] MEDS: NS 1000 ML 1,000 ML IV SCH (11:28)
[2020-08-09] MEDS: SYNTHROID 25 mcg TAB PO SCH (16:57)
[2020-08-09] MEDS: PRAVACHOL PO SCH (20:45)
[2020-08-09] MEDS: PriLOSEC PO SCH (20:47)
[2020-08-09] MEDS: AMBIEN PO PRN (23:03)
[2020-08-09] MEDS: NORCO 5/325 MG TAB PO PRN (23:04)
[2020-08-10] MEDS: XOPENEX 1.25 MG/3 ML NEBULE NEB SCH ×3 (06:00→21:00)
[2020-08-10] MEDS: NS 1000 ML 1,000 ML IV SCH ×2 (06:02→14:51)
[2020-08-10] MEDS: NEURONTIN CAP 100 MG PO SCH ×3 (06:04→21:36)
[2020-08-10 07:00] LABS: ALANINE AMINOTRANSFERASE 20 Units/L (12-78); ALBUMIN 2.2 g/dL (3.4-5.0); ALKALINE PHOSPHATASE 64 Units/L (46-116); ASPARTATE AMINO TRANSFERASE 15 Units/L (15-37); BLOOD UREA NITROGEN 35 mg/dL (7-18); CALCIUM 8.7 mg/dL (8.5-10.1); CARBON DIOXIDE 33.1 mmol/L (21-32); CHLORIDE 102 mmol/L (98-107); COR CA(FOR HYPOALB) 10.1 mg/dL (8.5-10.1); COR NA(FOR HYPERGLY) 139 mmol/L (136-145); CREATININE 0.95 mg/dL (0.55-1.02); SODIUM 138 mmol/L (136-145); TOTAL PROTEIN 5.8 g/dL (6.4-8.2); eGFR NON BLACK RACES > 60 (>60)
[2020-08-10 07:32] LABS: BASOPHILS % (AUTO) 0.2 % (0.2-1.0); HEMATOCRIT 33.4 % (36.0-47.0); HEMOGLOBIN 10.5 g/dL (12.0-16.0); LYMPHOCYTES # (AUTO) 0.5 X10^3/uL (1.3-2.9); LYMPHOCYTES % (AUTO) 2.9 % (21.0-51.0); MEAN CORPUSCULAR HEMOGLOBIN 28.2 pg (27.0-34.0); MEAN CORPUSCULAR HGB CONC 31.4 g/dL (33.0-35.0); MEAN CORPUSCULAR VOLUME 89.7 fL (80.0-100.0); MEAN PLATELET VOLUME 7.9 fL (7.4-11.0); MONOCYTES # (AUTO) 1.2 x10^3/uL (0.3-0.8); MONOCYTES % (AUTO) 7.1 % (0.0-13.0); NEUTROPHILS # (AUTO) 15.5 x10^3/uL (2.2-4.8); NEUTROPHILS % (AUTO) 89.8 % (42.0-75.0); PLATELET COUNT 568 X10^3/uL (150.0-450.0); RED BLOOD COUNT 3.72 X10^6/uL (3.5-5.4); RED CELL DISTRIBUTION WIDTH 15.2 % (11.6-16.5); WHITE BLOOD COUNT 17.2 X10^3/uL (3.6-10.0)
[2020-08-10 09:10] LABS: PLATELET MORPHOLOGY COMMENT NORMAL (NORMAL)
[2020-08-10] MEDS: ROCEPHIN VIAL 1 GRAM 1 G in NS 100 ML IV + SPIKE MINIBAG* 100 ML IV SCH (09:49)
[2020-08-10] MEDS: LASIX IVP SCH (09:53)
[2020-08-10] MEDS: COLACE CAP 100 MG PO SCH ×2 (09:53→20:39)
[2020-08-10] MEDS: CARDIZEM CD 360 MG 24-HR PO SCH (09:53)
[2020-08-10] MEDS: SOLU-Medrol 40 MG VIAL IVP SCH ×2 (09:53→20:42)
[2020-08-10] MEDS: ASPIRIN EC 81 MG PO SCH (09:54)
[2020-08-10] MEDS: CYMBALTA PO SCH (09:54)
[2020-08-10] MEDS: CORDARONE TAB 200 MG PO SCH (09:54)
[2020-08-10] MEDS: COREG TAB 25 MG PO SCH ×2 (09:54→20:40)
[2020-08-10] MEDS: HEMOCYTE-PLUS PO SCH (09:54)
[2020-08-10] MEDS: PROTONIX INJ 40 MG VIAL IVP SCH ×2 (09:55→20:42)
[2020-08-10] MEDS: XARELTO PO SCH (09:55)
[2020-08-10 10:23] LABS: ANTI-NUCLEAR ANTIBODY TEST None Detected (None Detected)
[2020-08-10] MEDS: ALBUMIN HUMAN 25%- 100 ML 100 ML IV SCH (11:07)
--- NOTE | 2020-08-10 12:16 | PCM.PROG ---
Progress Note - Progress Note for Day of Date of Exam: 08/10/20 - Subjective Subjective: The patient is a 70-year-old white female who is being treated for multiple medical complications including acute renal failure, congestive heart failure exacerbation, and acute inflammatory process. The patient has been on IV antibiotics for treatment of pneumonia which has showed some improvement. suspect that the pneumonia is caused from aspiration due to a large hiatal hernia, sleep apnea, and reflux disease. She is status post ablation for atrial fibrillation approximate one week ago. She denies any chest pain and her cardiac rhythm has been stable on this admission. She is sating 100% on 2 liters of supplemental oxygen. On exam, the patient is awake, alert, and oriented. She is lying in the bed. She is moving around in the bed well. She reports some dysphagia when she eats. She is currently followed by in the office. She is currently on anti-coagulant therapy due to atrial fibrillation. She would have to be cleared from a Trap Puller to adjust the anti-coagulant therapy prior to these outpatient procedures. The patient has diffuse diminished lung bases throughout. Heart rate is a controlled rate and rhythm. Abdomen is obese. She has mild inguinal erythema. She has +1 bilateral lower extremity edema. Her vitals this morning are: 98.1-70-20-97%nc-126/61. Labs were obtained. Abnormal lab values include the following: WBC 17.2, HGB 10.5, HCT 33.4, PLT COUNT 568, CARBON DIOXIDE 33.1, BUN 35, GLUCOSE 135, TOTAL BILI 0.10, CRP 30.70, TOTAL PROTEIN 5.8, ALBUMIN 2.2. Blood cultures are pending. We will continue with gentle IV hydration, iv antibiotics, solu-medrol, neb tx, and current plan of care today. We will also add albumin 25% iv daily. Otherwise, we plan to follow up with am labs and chest xray and continue to monitor. TIME SPENT ON CLINICAL ASSESSMENT, REVIEWING LABS AND IMAGING, DECISION MAKING, AND DOCUMENTATION GREATER THAN 75 MINUTES. - Past Medical Family Social History Past Med/Fam/Surg Hx: No changes since H&P Allergies: Allergies metoclopramide [From Reglan] Allergy (Verified 07/18/20 11:52) Penicillins Allergy (Verified 07/18/20 11:52) Sulfa (Sulfonamide Antibiotics) [SULFA] Allergy (Verified 07/18/20 11:52) - Review of Systems ROS: No change since H&P - Vital Signs and I&O's Vital Signs: Temperature 98.1 F Pulse Rate [Apical] 70 Pulse Rate 67 Respiratory Rate 20 Blood Pressure [Right Arm] 126/61 Blood Pressure 114/57 O2 Sat by Pulse Oximetry 97 Intake and Output: Intake & Output 08/08/20 08/09/20 08/10/20 08/11/20 11:59 11:59 11:59 11:59 Intake Total 1609 / 1609 2300 / 2300 1320 / 1320 Output Total 1150 / 1150 1350 / 1350 1900 / 1900 Balance 459 / 459 950 / 950 -580 / -580 - Physical Exam Oriented: Normal Eyes: Normal Ear: Normal Nose: Normal Throat: Normal Respiratory: Generalized, Diminished Cardiovascular: Normal, Edema : Normal Auscultation: Bowel Sounds: Normal Palpation: Normal Tenderness: Normal Skin: Decreased Turgur Musculoskeletal: Back:Lumbar, Tender Psychiatric: Anxiety Affect: Anxious Speech Pattern: Clear, Appropriate - Laboratory and Diagnostics Result Diagrams: 08/10/20 05:38 08/10/20 05:38 Labs: 08/06/20 09:37 Blood Blood Culture - Preliminary 08/06/20 09:30 Blood Blood Culture - Preliminary 08/05/20 13:09 Blood Blood Culture - Final 08/05/20 13:00 Blood Blood Culture - Preliminary 08/05/20 13:00 Urine,Clean Catch Urine Culture - Final Laboratory WBC 17.2 X10^3/uL (3.6-10.0) H 08/10/20 05:38 RBC 3.72 X10^6/uL (3.5-5.4) 08/10/20 05:38 Hgb 10.5 g/dL (12.0-16.0) L 08/10/20 05:38 Hct 33.4 % (36.0-47.0) L 08/10/20 05:38 MCV 89.7 fL (80.0-100.0) 08/10/20 05:38 MCH 28.2 pg (27.0-34.0) 08/10/20 05:38 MCHC 31.4 g/dL (33.0-35.0) L 08/10/20 05:38 RDW 15.2 % (11.6-16.5) 08/10/20 05:38 Plt Count 568 X10^3/uL (150.0-450.0) H 08/10/20 05:38 Plt Count Comment Increased (ADEQUATE) A 08/10/20 05:38 MPV 7.9 fL (7.4-11.0) 08/10/20 05:38 Neut % (Auto) 89.8 % (42.0-75.0) H 08/10/20 05:38 Lymph % (Auto) 2.9 % (21.0-51.0) L 08/10/20 05:38 [place] % (Auto) 7.1 % (0.0-13.0) 08/10/20 05:38 Eos % (Auto) 0.0 % (0.9-2.9) L 08/10/20 05:38 Baso % (Auto) 0.2 % (0.2-1.0) 08/10/20 05:38 Neut # (Auto) 15.5 x10^3/uL (2.2-4.8) H 08/10/20 05:38 Lymph # (Auto) 0.5 X10^3/uL (1.3-2.9) L 08/10/20 05:38 [place] # (Auto) 1.2 x10^3/uL (0.3-0.8) H 08/10/20 05:38 Eos # (Auto) 0.0 x10^3/uL (0.0-0.2) 08/10/20 05:38 Baso # (Auto) 0.0 X10^3/uL (0.0-0.1) 08/10/20 05:38 Absolute Nucleated RBC 0.0 /100WBC 08/10/20 05:38 Total Counted 100 08/10/20 05:38 Neutrophils % (Manual) 85 % (39-76) H 08/10/20 05:38 Band Neutrophils % 2 % (0-10) 08/09/20 05:50 Lymphocytes % (Manual) 7 % (13-43) L 08/10/20 05:38 Monocytes % (Manual) 7 % (4-9) 08/10/20 05:38 Eosinophils % (Manual) 1 % (0-6) 08/10/20 05:38 Myelocytes % 1 08/09/20 05:50 Plt Morphology Comment Normal (NORMAL) 08/10/20 05:38 RBC Morphology Normal (NORMAL) 08/10/20 05:38 ESR 97 MM/HOUR (0-20) H 08/05/20 13:00 PT 19.4 SECONDS (11.8-14.3) 08/07/20 09:00 INR Target Range - 08/07/20 09:00 INR 1.69 (0.8-1.3) H 08/07/20 09:00 APTT 54.2 SECONDS (22.9-36.5) H 08/07/20 09:00 PTT Comment - 08/07/20 09:00 D-Dimer 1.24 ug/ml (0.0-0.57) H* 08/07/20 09:00 Sample Site Lra 08/04/20 09:40 ABG pH 7.350 (7.35-7.45) 08/04/20 09:40 ABG pCO2 41.0 mmHg (35.0-45.0) 08/04/20 09:40 ABG pO2 59.0 mmHg (80.0-100.0) L 08/04/20 09:40 ABG HCO3 22.6 mmol/L (22-26) 08/04/20 09:40 ABG O2 Saturation 89.0 % (90-100) L 08/04/20 09:40 ABG Base Excess -2.9 mmol/L (-2.0-2.0) L 08/04/20 09:40 Parminder Test Pos 08/04/20 09:40 A-a Gradient 39.0 mmHg 08/04/20 09:40 FiO2 21.0 08/04/20 09:40 Blood Gas Comments Pt samantha well eb 08/04/20 09:40 Sodium 138 mmol/L (136-145) 08/10/20 05:38 Corrected Sodium 139 mmol/L (136-145) 08/10/20 05:38 Potassium 4.3 mmol/L (3.5-5.1) 08/10/20 05:38 Chloride 102 mmol/L (98-107) 08/10/20 05:38 Carbon Dioxide 33.1 mmol/L (21-32) H 08/10/20 05:38 BUN 35 mg/dL (7-18) H 08/10/20 05:38 Creatinine 0.95 mg/dL (0.55-1.02) 08/10/20 05:38 Est GFR (MDRD) Af Amer > 60 (>60) 08/10/20 05:38 Est GFR (MDRD) Non-Af > 60 (>60) 08/10/20 05:38 Glucose 135 mg/dL (65-99) H 08/10/20 05:38 Calcium 8.7 mg/dL (8.5-10.1) 08/10/20 05:38 Corrected Calcium 10.1 mg/dL (8.5-10.1) 08/10/20 05:38 Magnesium 2.2 mg/dL (1.7-2.9) 08/07/20 05:26 Iron 46 ug/dL (50-175) L 08/08/20 09:33 Transferrin 215 mg/dL (202-364) 08/08/20 09:33 Ferritin 432 ng/mL (8-252) H 08/08/20 09:33 Total Bilirubin 0.10 mg/dL (0.2-1.0) L 08/10/20 05:38 AST 15 Units/L (15-37) 08/10/20 05:38 ALT 20 Units/L (12-78) 08/10/20 05:38 Alkaline Phosphatase 64 Units/L (46-116) 08/10/20 05:38 Creatine Kinase 16 Units/L (26-192) L 08/07/20 09:00 CK-MB (CK-2) < 1.0 ng/mL (0-4.0) 08/07/20 09:00 CK/CKMB % Calc 6.3 % (<4) 08/07/20 09:00 Troponin I 0.20 ng/mL (0-1.5) 08/07/20 09:00 C-Reactive Protein 30.70 mg/L (0-3.0) H 08/09/20 05:50 B-Natriuretic Peptide 926 pg/mL (0-79) H* 08/07/20 05:26 Total Protein 5.8 g/dL (6.4-8.2) L 08/10/20 05:38 Albumin 2.2 g/dL (3.4-5.0) L 08/10/20 05:38 Globulin 3.6 g/dL (2.5-4.5) 08/10/20 05:38 Albumin/Globulin Ratio 0.6 Ratio (1.1-2.1) L 08/10/20 05:38 Vitamin B12 1053 pg/mL (193-986) H 08/08/20 09:33 Folate 14.4 ng/mL (>8.6) 08/08/20 09:33 Specimen Type Catherized urine 08/05/20 13:00 Urine Color Pale yellow (YELLOW) 08/05/20 13:00 Urine Appearance Clear (CLEAR) 08/05/20 13:00 Urine pH 5.0 (5.0 - 8.0) 08/05/20 13:00 Ur Specific [place] 1.010 (1.000-1.030) 08/05/20 13:00 Urine Protein Negative (NEGATIVE) 08/05/20 13:00 Urine Glucose (UA) Negative (NEGATIVE) 08/05/20 13:00 Urine Ketones Negative (NEGATIVE) 08/05/20 13:00 Urine Occult Blood Negative (NEGATIVE) 08/05/20 13:00 Urine Nitrite Negative (NEGATIVE) 08/05/20 13:00 Urine Bilirubin Negative (NEGATIVE) 08/05/20 13:00 Urine Urobilinogen Normal (NORMAL) 08/05/20 13:00 Ur Leukocyte Esterase 1+ (NEGATIVE) 08/05/20 13:00 Urine RBC 0-2 /HPF (0-3) 08/05/20 13:00 Urine WBC 10-20 /HPF (0-5) A 08/05/20 13:00 Ur Squamous Epith Cells Rare /HPF (NEGATIVE) 08/05/20 13:00 Urine Bacteria Trace /HPF (NEGATIVE) 08/05/20 13:00 Hyaline Casts Few /LPF (NEGATIVE) 08/04/20 19:50 Ur Culture Indicated? Yes/culture set up 08/05/20 13:00 Rheumatoid Factor Negative (NEGATIVE) 08/05/20 13:00 LEANDRA Screen None detected (None Detected) 08/05/20 13:00 LEANDRA Titer TNP 08/05/20 13:00 LEANDRA Pattern TNP 08/05/20 13:00 SARS CoV-2 RNA Rapid MIKEY Negative (NEGATIVE) 08/04/20 12:00 - Plan (1) Pneumonia Status: Acute Qualifiers: Pneumonia type: due to unspecified organism Laterality: bilateral Lung lo cation: lower lobe of lung Qualified Code(s): J18.9 - Pneumonia, unspecified organism (2) Atrial fibrillation Status: Acute Qualifiers: Atrial fibrillation type: paroxysmal Qualified Code(s): I48.0 - Paroxysmal atrial fibrillation (3) Anemia Status: Acute Qualifiers: Anemia type: unspecified type Qualified Code(s): D64.9 - Anemia, unspecified (4) CHF (congestive heart failure) Status: Acute Qualifiers: Heart failure type: combined systolic and diastolic Heart failure chronicity: acute on chronic Qualified Code(s): I50.43 - Acute on chronic combined systolic (congestive) and diastolic (congestive) heart failure
[2020-08-10] MEDS: MAALOX or MYLANTA PO PRN (15:02)
[2020-08-10] MEDS: MILK OF MAGNESIA PO PRN (15:08)
[2020-08-10] MEDS: SYNTHROID 25 mcg TAB PO SCH (16:42)
[2020-08-10] MEDS: PRAVACHOL PO SCH (20:40)
[2020-08-10] MEDS: PriLOSEC PO SCH (20:41)
[2020-08-10] MEDS: AMBIEN PO PRN (22:05)
[2020-08-11] MEDS: NEURONTIN CAP 100 MG PO SCH ×3 (05:12→21:05)
[2020-08-11] MEDS: XOPENEX 1.25 MG/3 ML NEBULE NEB SCH ×3 (05:25→20:45)
[2020-08-11 06:37] LABS: BASOPHILS % (AUTO) 0.1 % (0.2-1.0); HEMATOCRIT 32.7 % (36.0-47.0); HEMOGLOBIN 10.4 g/dL (12.0-16.0); LYMPHOCYTES # (AUTO) 0.8 X10^3/uL (1.3-2.9); LYMPHOCYTES % (AUTO) 3.6 % (21.0-51.0); MEAN CORPUSCULAR HEMOGLOBIN 28.6 pg (27.0-34.0); MEAN CORPUSCULAR HGB CONC 31.8 g/dL (33.0-35.0); MEAN CORPUSCULAR VOLUME 89.8 fL (80.0-100.0); MEAN PLATELET VOLUME 7.6 fL (7.4-11.0); MONOCYTES % (AUTO) 9.4 % (0.0-13.0); NEUTROPHILS # (AUTO) 18.4 x10^3/uL (2.2-4.8); NEUTROPHILS % (AUTO) 86.9 % (42.0-75.0); PLATELET COUNT 571 X10^3/uL (150.0-450.0); RED BLOOD COUNT 3.64 X10^6/uL (3.5-5.4); RED CELL DISTRIBUTION WIDTH 15.5 % (11.6-16.5); WHITE BLOOD COUNT 21.2 X10^3/uL (3.6-10.0)
[2020-08-11 06:53] LABS: ALANINE AMINOTRANSFERASE 20 Units/L (12-78); ALBUMIN 2.5 g/dL (3.4-5.0); ALKALINE PHOSPHATASE 54 Units/L (46-116); ASPARTATE AMINO TRANSFERASE 14 Units/L (15-37); BLOOD UREA NITROGEN 29 mg/dL (7-18); CALCIUM 8.4 mg/dL (8.5-10.1); CARBON DIOXIDE 34.3 mmol/L (21-32); CHLORIDE 103 mmol/L (98-107); COR CA(FOR HYPOALB) 9.6 mg/dL (8.5-10.1); COR NA(FOR HYPERGLY) 141 mmol/L (136-145); CREATININE 0.82 mg/dL (0.55-1.02); SODIUM 140 mmol/L (136-145); TOTAL PROTEIN 5.4 g/dL (6.4-8.2); eGFR NON BLACK RACES > 60 (>60)
--- NOTE | 2020-08-11 07:07 | RAD ---
HISTORYSOBSTUDYPortable AP chestCOMPARISONFebruary 2020FINDINGSConsidering technical differences there is no significant change since prior exam. Mild cardiomegaly again noted with diffuse bilateral interstitial infiltrates primarily in the perihilar and lower lobe areas. There are no new areas of consolidation, developing pneumothorax or pleural fluid.IMPRESSIONNo change. Cardiomegaly and bilateral interstitial infiltrates consistent with inflammatory involvement, less likely perivascular edema.Electronically signed by: JEAN JOSHUA (Aug 11, 2020 07:06:26)
[2020-08-11] MEDS: NS 1000 ML 1,000 ML IV SCH ×2 (07:15→14:12)
[2020-08-11 07:49] LABS: PLATELET MORPHOLOGY COMMENT NORMAL (NORMAL)
[2020-08-11] MEDS: ALBUMIN HUMAN 25%- 100 ML 100 ML IV SCH (08:49)
[2020-08-11] MEDS: CARDIZEM CD 360 MG 24-HR PO SCH (08:50)
[2020-08-11] MEDS: ASPIRIN EC 81 MG PO SCH (08:50)
[2020-08-11] MEDS: COLACE CAP 100 MG PO SCH ×2 (08:51→21:03)
[2020-08-11] MEDS: CYMBALTA PO SCH (08:51)
[2020-08-11] MEDS: HEMOCYTE-PLUS PO SCH (08:51)
[2020-08-11] MEDS: COREG TAB 25 MG PO SCH ×2 (08:51→21:03)
[2020-08-11] MEDS: ROCEPHIN VIAL 1 GRAM 1 G in NS 100 ML IV + SPIKE MINIBAG* 100 ML IV SCH (08:52)
[2020-08-11] MEDS: XARELTO PO SCH (08:52)
[2020-08-11] MEDS: SOLU-Medrol 40 MG VIAL IVP SCH ×2 (08:52→21:05)
[2020-08-11] MEDS: LASIX IVP SCH (08:52)
[2020-08-11] MEDS: PROTONIX INJ 40 MG VIAL IVP SCH ×2 (08:52→21:04)
[2020-08-11] MEDS: CORDARONE TAB 200 MG PO SCH (08:53)
--- NOTE | 2020-08-11 13:14 | PCM.PROG ---
Progress Note - Progress Note for Day of Date of Exam: 08/11/20 - Subjective Subjective: The patient is a 70-year-old white female who is being treated for multiple medical complications including acute renal failure, congestive heart failure exacerbation, and acute inflammatory process. The patient has been on IV antibiotics for treatment of pneumonia which has showed some improvement. suspect that the pneumonia is caused from aspiration due to a large hiatal hernia, sleep apnea, and reflux disease. She is status post ablation for atrial fibrillation approximate one week ago. She denies any chest pain and her cardiac rhythm has been stable on this admission. She is sating 95-100% on 2 liters of supplemental oxygen. On exam, the patient is awake, alert, and or iented. She is lying in the bed. She is moving around in the bed well. She reports some dysphagia when she eats. She is currently followed by in the office. She is currently on anti-coagulant therapy due to atrial fibrillation. She would have to be cleared from a Sand Carrier to adjust the anti-coagulant therapy prior to these outpatient procedures. The patient has diffuse diminished lung bases throughout. Heart rate is a controlled rate and rhythm. Abdomen is obese. She has mild inguinal erythema. She has bilateral lower extremity edema. Her vitals this morning are: 97.7-78-20-96%-141/64. Labs were obtained. Abnormal lab values include the following: WBC 21.1, HGB 10.4, HCT 32.7, PLT COUNT 571, CARBON DIOXIDE 34.3, BUN 29, GLUCOSE 134, CALCIUM 8.4, AST 14, TOTAL PROTEIN 5.4, ALBUMIN 2.5. Blood cultures are pending. Chest xray revealed: No change. Cardiomegaly and bilateral interstitial infiltrates consistent with inflammatory involvement, less likely perivascular edema. We will continue with gentle IV hydration, iv antibiotics, solu-medrol, neb tx, and current plan of care today. Otherwise, we plan to follow up with am labs and chest xray and continue to monitor. TIME SPENT ON CLINICAL ASSESSMENT, REVIEWING LABS AND IMAGING, DECISION MAKING, AND DOCUMENTATION GREATER THAN 75 MINUTES. - Past Medical Family Social History Past Med/Fam/Surg Hx: No changes since H&P Allergies: Allergies metoclopramide [From Reglan] Allergy (Verified 07/18/20 11:52) Penicillins Allergy (Verified 07/18/20 11:52) Sulfa (Sulfonamide Antibiotics) [SULFA] Allergy (Verified 07/18/20 11:52) - Review of Systems ROS: No change since H&P - Vital Signs and I&O's Vital Signs: Temperature 97.9 F Pulse Rate [Apical] 75 Pulse Rate 78 Respiratory Rate 20 Blood Pressure [Right Arm] 142/69 Blood Pressure 114/57 O2 Sat by Pulse Oximetry 96 Intake and Output: Intake & Output 08/09/20 08/10/20 08/11/20 08/12/20 11:59 11:59 11:59 11:59 Intake Total 2300 / 2300 1320 / 1320 2355 / 2355 Output Total 1350 / 1350 1900 / 1900 2125 / 2125 Balance 950 / 950 -580 / -580 230 / 230 - Physical Exam Oriented: Normal Eyes: Normal Ear: Normal Nose: Normal Throat: Normal Respiratory: Generalized, Diminished Cardiovascular: Normal, Edema : Normal Auscultation: Bowel Sounds: Normal Tenderness: Normal Skin: Decreased Turgur Musculoskeletal: Back:Lumbar, Tender Psychiatric: Anxiety Affect: Anxious Speech Pattern: Clear, Appropriate - Laboratory and Diagnostics Result Diagrams: 08/11/20 06:05 08/11/20 06:05 Labs: 08/06/20 09:37 Blood Blood Culture - Final 08/06/20 09:30 Blood Blood Culture - Final 08/05/20 13:00 Blood Blood Culture - Final 08/05/20 13:09 Blood Blood Culture - Final 08/05/20 13:00 Urine,Clean Catch Urine Culture - Final Laboratory WBC 21.2 X10^3/uL (3.6-10.0) H 08/11/20 06:05 RBC 3.64 X10^6/uL (3.5-5.4) 08/11/20 06:05 Hgb 10.4 g/dL (12.0-16.0) L 08/11/20 06:05 Hct 32.7 % (36.0-47.0) L 08/11/20 06:05 MCV 89.8 fL (80.0-100.0) 08/11/20 06:05 MCH 28.6 pg (27.0-34.0) 08/11/20 06:05 MCHC 31.8 g/dL (33.0-35.0) L 08/11/20 06:05 RDW 15.5 % (11.6-16.5) 08/11/20 06:05 Plt Count 571 X10^3/uL (150.0-450.0) H 08/11/20 06:05 Plt Count Comment Increased (ADEQUATE) A 08/11/20 06:05 MPV 7.6 fL (7.4-11.0) 08/11/20 06:05 Neut % (Auto) 86.9 % (42.0-75.0) H 08/11/20 06:05 Lymph % (Auto) 3.6 % (21.0-51.0) L 08/11/20 06:05 [place] % (Auto) 9.4 % (0.0-13.0) 08/11/20 06:05 Eos % (Auto) 0.0 % (0.9-2.9) L 08/11/20 06:05 Baso % (Auto) 0.1 % (0.2-1.0) L 08/11/20 06:05 Neut # (Auto) 18.4 x10^3/uL (2.2-4.8) H 08/11/20 06:05 Lymph # (Auto) 0.8 X10^3/uL (1.3-2.9) L 08/11/20 06:05 [place] # (Auto) 2.0 x10^3/uL (0.3-0.8) H 08/11/20 06:05 Eos # (Auto) 0.0 x10^3/uL (0.0-0.2) 08/11/20 06:05 Baso # (Auto) 0.0 X10^3/uL (0.0-0.1) 08/11/20 06:05 Absolute Nucleated RBC 0.1 /100WBC 08/11/20 06:05 Total Counted 100 08/11/20 06:05 Neutrophils % (Manual) 85 % (39-76) H 08/11/20 06:05 Band Neutrophils % 2 % (0-10) 08/09/20 05:50 Lymphocytes % (Manual) 5 % (13-43) L 08/11/20 06:05 Monocytes % (Manual) 10 % (4-9) H 08/11/20 06:05 Eosinophils % (Manual) 1 % (0-6) 08/10/20 05:38 Myelocytes % 1 08/09/20 05:50 Plt Morphology Comment Normal (NORMAL) 08/11/20 06:05 RBC Morphology Normal (NORMAL) 08/11/20 06:05 ESR 97 MM/HOUR (0-20) H 08/05/20 13:00 PT 19.4 SECONDS (11.8-14.3) 08/07/20 09:00 INR Target Range - 08/07/20 09:00 INR 1.69 (0.8-1.3) H 08/07/20 09:00 APTT 54.2 SECONDS (22.9-36.5) H 08/07/20 09:00 PTT Comment - 08/07/20 09:00 D-Dimer 1.24 ug/ml (0.0-0.57) H* 08/07/20 09:00 Sample Site Lra 08/04/20 09:40 ABG pH 7.350 (7.35-7.45) 08/04/20 09:40 ABG pCO2 41.0 mmHg (35.0-45.0) 08/04/20 09:40 ABG pO2 59.0 mmHg (80.0-100.0) L 08/04/20 09:40 ABG HCO3 22.6 mmol/L (22-26) 08/04/20 09:40 ABG O2 Saturation 89.0 % (90-100) L 08/04/20 09:40 ABG Base Excess -2.9 mmol/L (-2.0-2.0) L 08/04/20 09:40 Parminder Test Pos 08/04/20 09:40 A-a Gradient 39.0 mmHg 08/04/20 09:40 FiO2 21.0 08/04/20 09:40 Blood Gas Comments Pt samantha well eb 08/04/20 09:40 Sodium 140 mmol/L (136-145) 08/11/20 06:05 Corrected Sodium 141 mmol/L (136-145) 08/11/20 06:05 Potassium 4.4 mmol/L (3.5-5.1) 08/11/20 06:05 Chloride 103 mmol/L (98-107) 08/11/20 06:05 Carbon Dioxide 34.3 mmol/L (21-32) H 08/11/20 06:05 BUN 29 mg/dL (7-18) H 08/11/20 06:05 Creatinine 0.82 mg/dL (0.55-1.02) 08/11/20 06:05 Est GFR (MDRD) Af Amer > 60 (>60) 08/11/20 06:05 Est GFR (MDRD) Non-Af > 60 (>60) 08/11/20 06:05 Glucose 134 mg/dL (65-99) H 08/11/20 06:05 Calcium 8.4 mg/dL (8.5-10.1) L 08/11/20 06:05 Corrected Calcium 9.6 mg/dL (8.5-10.1) 08/11/20 06:05 Magnesium 2.2 mg/dL (1.7-2.9) 08/07/20 05:26 Iron 46 ug/dL (50-175) L 08/08/20 09:33 Transferrin 215 mg/dL (202-364) 08/08/20 09:33 Ferritin 432 ng/mL (8-252) H 08/08/20 09:33 Total Bilirubin 0.20 mg/dL (0.2-1.0) 08/11/20 06:05 AST 14 Units/L (15-37) L 08/11/20 06:05 ALT 20 Units/L (12-78) 08/11/20 06:05 Alkaline Phosphatase 54 Units/L (46-116) 08/11/20 06:05 Creatine Kinase 16 Units/L (26-192) L 08/07/20 09:00 CK-MB (CK-2) < 1.0 ng/mL (0-4.0) 08/07/20 09:00 CK/CKMB % Calc 6.3 % (<4) 08/07/20 09:00 Troponin I 0.20 ng/mL (0-1.5) 08/07/20 09:00 C-Reactive Protein 30.70 mg/L (0-3.0) H 08/09/20 05:50 B-Natriuretic Peptide 926 pg/mL (0-79) H* 08/07/20 05:26 Total Protein 5.4 g/dL (6.4-8.2) L 08/11/20 06:05 Albumin 2.5 g/dL (3.4-5.0) L 08/11/20 06:05 Globulin 2.9 g/dL (2.5-4.5) 08/11/20 06:05 Albumin/Globulin Ratio 0.9 Ratio (1.1-2.1) L 08/11/20 06:05 Vitamin B12 1053 pg/mL (193-986) H 08/08/20 09:33 Folate 14.4 ng/mL (>8.6) 08/08/20 09:33 Specimen Type Catherized urine 08/05/20 13:00 Urine Color Pale yellow (YELLOW) 08/05/20 13:00 Urine Appearance Clear (CLEAR) 08/05/20 13:00 Urine pH 5.0 (5.0 - 8.0) 08/05/20 13:00 Ur Specific [place] 1.010 (1.000-1.030) 08/05/20 13:00 Urine Protein Negative (NEGATIVE) 08/05/20 13:00 Urine Glucose (UA) Negative (NEGATIVE) 08/05/20 13:00 Urine Ketones Negative (NEGATIVE) 08/05/20 13:00 Urine Occult Blood Negative (NEGATIVE) 08/05/20 13:00 Urine Nitrite Negative (NEGATIVE) 08/05/20 13:00 Urine Bilirubin Negative (NEGATIVE) 08/05/20 13:00 Urine Urobilinogen Normal (NORMAL) 08/05/20 13:00 Ur Leukocyte Esterase 1+ (NEGATIVE) 08/05/20 13:00 Urine RBC 0-2 /HPF (0-3) 08/05/20 13:00 Urine WBC 10-20 /HPF (0-5) A 08/05/20 13:00 Ur Squamous Epith Cells Rare /HPF (NEGATIVE) 08/05/20 13:00 Urine Bacteria Trace /HPF (NEGATIVE) 08/05/20 13:00 Hyaline Casts Few /LPF (NEGATIVE) 08/04/20 19:50 Ur Culture Indicated? Yes/culture set up 08/05/20 13:00 Rheumatoid Factor Negative (NEGATIVE) 08/05/20 13:00 LEANDRA Screen None detected (None Detected) 08/05/20 13:00 LEANDRA Titer TNP 08/05/20 13:00 LEANDRA Pattern TNP 08/05/20 13:00 SARS CoV-2 RNA Rapid MIKEY Negative (NEGATIVE) 08/04/20 12:00 - Plan (1) Pneumonia Status: Acute Qualifiers: Pneumonia type: due to unspecified organism Laterality: bilateral Lung location: lower lobe of lung Qualified Code(s): J18.9 - Pneumonia, unspecified organism (2) Atrial fibrillation Status: Acute Qualifiers: Atrial fibrillation type: paroxysmal Qualified Code(s): I48.0 - Paroxysmal atrial fibrillation (3) Anemia Status: Acute Qualifiers: Anemia type: unspecified type Qualified Code(s): D64.9 - Anemia, unspecified (4) CHF (congestive heart failure) Status: Acute Qualifiers: Heart failure type: combined systolic and diastolic Heart failure chronicity: acute on chronic Qualified Code(s): I50.43 - Acute on chronic combined systolic (congestive) and diastolic (congestive) heart failure
[2020-08-11] MEDS: SYNTHROID 25 mcg TAB PO SCH (17:08)
[2020-08-11] MEDS: NYSTATIN SUSP PO PRN (18:07)
[2020-08-11] MEDS: PRAVACHOL PO SCH (21:03)
[2020-08-11] MEDS: PriLOSEC PO SCH (21:04)
[2020-08-11] MEDS: AMBIEN PO PRN (21:55)
[2020-08-12] MEDS: NS 1000 ML 1,000 ML IV SCH ×2 (01:26→05:49)
[2020-08-12] MEDS: NEURONTIN CAP 100 MG PO SCH ×3 (05:43→21:08)
[2020-08-12] MEDS: XOPENEX 1.25 MG/3 ML NEBULE NEB SCH ×3 (06:09→20:20)
--- NOTE | 2020-08-12 06:22 | RAD ---
HISTORYSOBSTUDYCHEST, 1 [id number]/28/2021.TECHNIQUEAP view of the chestFINDINGSCardiac silhouette is mildly enlarged but stable. Mildly worsened appearance of left suprahilar airspace and interstitial opacities. Other predominant interstitial opacities bilateral appears similar. No definite pleural effusion or pneumothorax.IMPRESSIONMildly worse left upper lobe infiltrate. Otherwise similar.Electronically signed by: Kirby Mathew (Aug 12, 2020 06:18:39)
[2020-08-12 06:52] LABS: BASOPHILS % (AUTO) 0.1 % (0.2-1.0); HEMATOCRIT 32.5 % (36.0-47.0); HEMOGLOBIN 10.4 g/dL (12.0-16.0); LYMPHOCYTES # (AUTO) 0.5 X10^3/uL (1.3-2.9); LYMPHOCYTES % (AUTO) 2.2 % (21.0-51.0); MEAN CORPUSCULAR HEMOGLOBIN 28.9 pg (27.0-34.0); MEAN CORPUSCULAR HGB CONC 32.2 g/dL (33.0-35.0); MEAN PLATELET VOLUME 7.6 fL (7.4-11.0); MONOCYTES # (AUTO) 1.4 x10^3/uL (0.3-0.8); MONOCYTES % (AUTO) 6.1 % (0.0-13.0); NEUTROPHILS # (AUTO) 20.8 x10^3/uL (2.2-4.8); NEUTROPHILS % (AUTO) 91.6 % (42.0-75.0); PLATELET COUNT 507 X10^3/uL (150.0-450.0); RED BLOOD COUNT 3.61 X10^6/uL (3.5-5.4); RED CELL DISTRIBUTION WIDTH 15.7 % (11.6-16.5); WHITE BLOOD COUNT 22.7 X10^3/uL (3.6-10.0)
[2020-08-12 07:10] LABS: ALANINE AMINOTRANSFERASE 24 Units/L (12-78); ALBUMIN 2.6 g/dL (3.4-5.0); ALKALINE PHOSPHATASE 54 Units/L (46-116); ASPARTATE AMINO TRANSFERASE 15 Units/L (15-37); BLOOD UREA NITROGEN 26 mg/dL (7-18); CALCIUM 8.2 mg/dL (8.5-10.1); CARBON DIOXIDE 31.9 mmol/L (21-32); CHLORIDE 102 mmol/L (98-107); COR CA(FOR HYPOALB) 9.3 mg/dL (8.5-10.1); COR NA(FOR HYPERGLY) 142 mmol/L (136-145); CREATININE 0.84 mg/dL (0.55-1.02); SODIUM 140 mmol/L (136-145); TOTAL PROTEIN 5.4 g/dL (6.4-8.2); eGFR NON BLACK RACES > 60 (>60)
[2020-08-12 07:45] LABS: PLATELET MORPHOLOGY COMMENT NORMAL (NORMAL)
[2020-08-12] MEDS: PROTONIX INJ 40 MG VIAL IVP SCH ×2 (09:35→21:08)
[2020-08-12] MEDS: ASPIRIN EC 81 MG PO SCH (09:36)
[2020-08-12] MEDS: PREDNISONE TAB 10 MG PO SCH (09:36)
[2020-08-12] MEDS: CARDIZEM CD 360 MG 24-HR PO SCH (09:36)
[2020-08-12] MEDS: COLACE CAP 100 MG PO SCH ×2 (09:40→21:08)
[2020-08-12] MEDS: COREG TAB 25 MG PO SCH ×2 (09:40→21:08)
[2020-08-12] MEDS: CORDARONE TAB 200 MG PO SCH (09:40)
[2020-08-12] MEDS: HEMOCYTE-PLUS PO SCH (09:41)
[2020-08-12] MEDS: CYMBALTA PO SCH (09:41)
[2020-08-12] MEDS: VIBRAMYCIN 100 MG in D5W 250 ML IV 250 ML IV SCH ×2 (09:44→21:08)
[2020-08-12] MEDS: XARELTO PO SCH (09:47)
[2020-08-12] MEDS: LASIX IVP SCH (09:47)
[2020-08-12] MEDS: NYSTATIN SUSP PO PRN ×2 (10:05→18:16)
--- NOTE | 2020-08-12 13:35 | PCM.PROG ---
Progress Note - Progress Note for Day of Date of Exam: 08/12/20 - Subjective Subjective: The patient is a 70-year-old white female who is being treated for multiple medical complications including acute renal failure, congestive heart failure exacerbation, and acute inflammatory process. The patient has been on IV antibiotics for treatment of pneumonia which has showed some improvement. suspect that the pneumonia is caused from aspiration due to a large hiatal hernia, sleep apnea, and reflux disease. She is status post ablation for atrial fibrillation approximate one week ago. She denies any chest pain and her cardiac rhythm has been stable on this admission. She is sating 95-100% on 2 liters of supplemental oxygen. On exam, the patient is awake, alert, and or iented. She is lying in the bed. She is moving around in the bed well. She reports some dysphagia when she eats. She is currently followed by in the office. She is currently on anti-coagulant therapy due to atrial fibrillation. She would have to be cleared from a Embedded Nurse to adjust the anti-coagulant therapy prior to these outpatient procedures. The patient has diffuse diminished lung bases throughout. - Past Medical Family Social History Past Med/Fam/Surg Hx: No changes since H&P Allergies: Allergies metoclopramide [From Reglan] Allergy (Verified 07/18/20 11:52) Penicillins Allergy (Verified 07/18/20 11:52) Sulfa (Sulfonamide Antibiotics) [SULFA] Allergy (Verified 07/18/20 11:52) - Review of Systems ROS: No change since H&P - Vital Signs and I&O's Vital Signs: Temperature 97.6 F Pulse Rate [Apical] 68 Pulse Rate 65 Respiratory Rate 18 Blood Pressure [Right Arm] 140/56 Blood Pressure 114/57 O2 Sat by Pulse Oximetry 99 Intake and Output: Intake & Output 08/10/20 08/11/20 08/12/20 08/13/20 11:59 11:59 11:59 11:59 Intake Total 1320 / 1320 2355 / 2355 1980 Output Total 1900 / 1900 2125 / 2125 2250 / 2250 Balance -580 / -580 230 / 230 -269 / -269 - Physical Exam Oriented: Normal Eyes: Normal Ear: Normal Nose: Normal Throat: Normal Respiratory: Generalized, Diminished Cardiovascular: Normal, Edema : Normal Auscultation: Bowel Sounds: Normal Tenderness: Epigastric, Mild Skin: Decreased Turgur Musculoskeletal: Back:Lumbar, Tender Psychiatric: Anxiety Affect: Anxious Speech Pattern: Clear, Appropriate - Laboratory and Diagnostics Result Diagrams: 08/12/20 05:46 08/12/20 05:46 Labs: 08/06/20 09:37 Blood Blood Culture - Final 08/06/20 09:30 Blood Blood Culture - Final 08/05/20 13:00 Blood Blood Culture - Final 08/05/20 13:09 Blood Blood Culture - Final 08/05/20 13:00 Urine,Clean Catch Urine Culture - Final Laboratory WBC 22.7 X10^3/uL (3.6-10.0) H 08/12/20 05:46 RBC 3.61 X10^6/uL (3.5-5.4) 08/12/20 05:46 Hgb 10.4 g/dL (12.0-16.0) L 08/12/20 05:46 Hct 32.5 % (36.0-47.0) L 08/12/20 05:46 MCV 90.0 fL (80.0-100.0) 08/12/20 05:46 MCH 28.9 pg (27.0-34.0) 08/12/20 05:46 MCHC 32.2 g/dL (33.0-35.0) L 08/12/20 05:46 RDW 15.7 % (11.6-16.5) 08/12/20 05:46 Plt Count 507 X10^3/uL (150.0-450.0) H 08/12/20 05:46 Plt Count Comment Increased (ADEQUATE) A 08/12/20 05:46 MPV 7.6 fL (7.4-11.0) 08/12/20 05:46 Neut % (Auto) 91.6 % (42.0-75.0) H 08/12/20 05:46 Lymph % (Auto) 2.2 % (21.0-51.0) L 08/12/20 05:46 Early % (Auto) 6.1 % (0.0-13.0) 08/12/20 05:46 Eos % (Auto) 0.0 % (0.9-2.9) L 08/12/20 05:46 Baso % (Auto) 0.1 % (0.2-1.0) L 08/12/20 05:46 Neut # (Auto) 20.8 x10^3/uL (2.2-4.8) H 08/12/20 05:46 Lymph # (Auto) 0.5 X10^3/uL (1.3-2.9) L 08/12/20 05:46 Early # (Auto) 1.4 x10^3/uL (0.3-0.8) H 08/12/20 05:46 Eos # (Auto) 0.0 x10^3/uL (0.0-0.2) 08/12/20 05:46 Baso # (Auto) 0.0 X10^3/uL (0.0-0.1) 08/12/20 05:46 Absolute Nucleated RBC 0.0 /100WBC 08/12/20 05:46 Total Counted 100 08/12/20 05:46 Neutrophils % (Manual) 89 % (39-76) H 08/12/20 05:46 Band Neutrophils % 2 % (0-10) 08/09/20 05:50 Lymphocytes % (Manual) 3 % (13-43) L 08/12/20 05:46 Monocytes % (Manual) 8 % (4-9) 08/12/20 05:46 Eosinophils % (Manual) 1 % (0-6) 08/10/20 05:38 Myelocytes % 1 08/09/20 05:50 Plt Morphology Comment Normal (NORMAL) 08/12/20 05:46 RBC Morphology Normal (NORMAL) 08/12/20 05:46 ESR 97 MM/HOUR (0-20) H 08/05/20 13:00 PT 19.4 SECONDS (11.8-14.3) 08/07/20 09:00 INR Target Range - 08/07/20 09:00 INR 1.69 (0.8-1.3) H 08/07/20 09:00 APTT 54.2 SECONDS (22.9-36.5) H 08/07/20 09:00 PTT Comment - 08/07/20 09:00 D-Dimer 1.24 ug/ml (0.0-0.57) H* 08/07/20 09:00 Sample Site Lra 08/04/20 09:40 ABG pH 7.350 (7.35-7.45) 08/04/20 09:40 ABG pCO2 41.0 mmHg (35.0-45.0) 08/04/20 09:40 ABG pO2 59.0 mmHg (80.0-100.0) L 08/04/20 09:40 ABG HCO3 22.6 mmol/L (22-26) 08/04/20 09:40 ABG O2 Saturation 89.0 % (90-100) L 08/04/20 09:40 ABG Base Excess -2.9 mmol/L (-2.0-2.0) L 08/04/20 09:40 Parminder Test Pos 08/04/20 09:40 A-a Gradient 39.0 mmHg 08/04/20 09:40 FiO2 21.0 08/04/20 09:40 Blood Gas Comments Pt samantha well eb 08/04/20 09:40 Sodium 140 mmol/L (136-145) 08/12/20 05:46 Corrected Sodium 142 mmol/L (136-145) 08/12/20 05:46 Potassium 4.3 mmol/L (3.5-5.1) 08/12/20 05:46 Chloride 102 mmol/L (98-107) 08/12/20 05:46 Carbon Dioxide 31.9 mmol/L (21-32) 08/12/20 05:46 BUN 26 mg/dL (7-18) H 08/12/20 05:46 Creatinine 0.84 mg/dL (0.55-1.02) 08/12/20 05:46 Est GFR (MDRD) Af Amer > 60 (>60) 08/12/20 05:46 Est GFR (MDRD) Non-Af > 60 (>60) 08/12/20 05:46 Glucose 190 mg/dL (65-99) H 08/12/20 05:46 Calcium 8.2 mg/dL (8.5-10.1) L 08/12/20 05:46 Corrected Calcium 9.3 mg/dL (8.5-10.1) 08/12/20 05:46 Magnesium 2.2 mg/dL (1.7-2.9) 08/07/20 05:26 Iron 46 ug/dL (50-175) L 08/08/20 09:33 Transferrin 215 mg/dL (202-364) 08/08/20 09:33 Ferritin 432 ng/mL (8-252) H 08/08/20 09:33 Total Bilirubin 0.20 mg/dL (0.2-1.0) 08/12/20 05:46 AST 15 Units/L (15-37) 08/12/20 05:46 ALT 24 Units/L (12-78) 08/12/20 05:46 Alkaline Phosphatase 54 Units/L (46-116) 08/12/20 05:46 Creatine Kinase 16 Units/L (26-192) L 08/07/20 09:00 CK-MB (CK-2) < 1.0 ng/mL (0-4.0) 08/07/20 09:00 CK/CKMB % Calc 6.3 % (<4) 08/07/20 09:00 Troponin I 0.20 ng/mL (0-1.5) 08/07/20 09:00 C-Reactive Protein 11.10 mg/L (0-3.0) H 08/12/20 05:46 B-Natriuretic Peptide 571 pg/mL (0-79) H* 08/12/20 05:46 Total Protein 5.4 g/dL (6.4-8.2) L 08/12/20 05:46 Albumin 2.6 g/dL (3.4-5.0) L 08/12/20 05:46 Globulin 2.8 g/dL (2.5-4.5) 08/12/20 05:46 Albumin/Globulin Ratio 0.9 Ratio (1.1-2.1) L 08/12/20 05:46 Vitamin B12 1053 pg/mL (193-986) H 08/08/20 09:33 Folate 14.4 ng/mL (>8.6) 08/08/20 09:33 Specimen Type Catherized urine 08/05/20 13:00 Urine Color Pale yellow (YELLOW) 08/05/20 13:00 Urine Appearance Clear (CLEAR) 08/05/20 13:00 Urine pH 5.0 (5.0 - 8.0) 08/05/20 13:00 Ur Specific [place] 1.010 (1.000-1.030) 08/05/20 13:00 Urine Protein Negative (NEGATIVE) 08/05/20 13:00 Urine Glucose (UA) Negative (NEGATIVE) 08/05/20 13:00 Urine Ketones Negative (NEGATIVE) 08/05/20 13:00 Urine Occult Blood Negative (NEGATIVE) 08/05/20 13:00 Urine Nitrite Negative (NEGATIVE) 08/05/20 13:00 Urine Bilirubin Negative (NEGATIVE) 08/05/20 13:00 Urine Urobilinogen Normal (NORMAL) 08/05/20 13:00 Ur Leukocyte Esterase 1+ (NEGATIVE) 08/05/20 13:00 Urine RBC 0-2 /HPF (0-3) 08/05/20 13:00 Urine WBC 10-20 /HPF (0-5) A 08/05/20 13:00 Ur Squamous Epith Cells Rare /HPF (NEGATIVE) 08/05/20 13:00 Urine Bacteria Trace /HPF (NEGATIVE) 08/05/20 13:00 Hyaline Casts Few /LPF (NEGATIVE) 08/04/20 19:50 Ur Culture Indicated? Yes/culture set up 08/05/20 13:00 Rheumatoid Factor Negative (NEGATIVE) 08/05/20 13:00 LEANDRA Screen None detected (None Detected) 08/05/20 13:00 LEANDRA Titer TNP 08/05/20 13:00 LEANDRA Pattern TNP 08/05/20 13:00 SARS CoV-2 RNA Rapid MIKEY Negative (NEGATIVE) 08/04/20 12:00 - Plan (1) Acute heart failure Status: Acute Plan: CONTROL. CONTINUOUS CARDIAC MONITORING. BP CONTROL, IV ATBX, SUPPLEMENTAL O2. SLEEP STUDY, HOME O2 EVALUATION. IV LASIX, REPEAT CRP AND BNP, DAILY CBC AND CMP. STRICT I&OS (2) Dehydration Status: Acute (3) SOB (shortness of breath) Status: Acute (4) CHF (congestive heart failure) Status: Acute (5) CAD (coronary artery disease) Status: Acute (6) Atrial fibrillation Status: Acute Qualifiers: Atrial fibrillation type: paroxysmal Qualified Code(s): I48.0 - Paroxysmal atrial fibrillation
[2020-08-12] MEDS: SYNTHROID 25 mcg TAB PO SCH (16:35)
[2020-08-12] MEDS: PRAVACHOL PO SCH (21:08)
[2020-08-12] MEDS: PriLOSEC PO SCH (21:09)
[2020-08-12] MEDS: AMBIEN PO PRN (21:56)
[2020-08-13] MEDS: XOPENEX 1.25 MG/3 ML NEBULE NEB SCH ×2 (05:00→13:33)
--- NOTE | 2020-08-13 06:22 | RAD ---
HISTORYSOBSTUDYCHEST, 1 [id number]/01/2021.TECHNIQUEAP view of the chestFINDINGSThe cardiac and mediastinal contours appear stable. Interval mild improvement in left upper lobe airspace opacity. Other mild infiltrates appear similar. No definite pleural effusion or pneumothorax.IMPRESSIONMildly improved appearance of left upper lobe airspace opacities.Electronically signed by: Kirby Mathew (Aug 13, 2020 06:18:55)
[2020-08-13 06:33] LABS: BASOPHILS # (AUTO) 0.1 X10^3/uL (0.0-0.1); BASOPHILS % (AUTO) 0.3 % (0.2-1.0); EOSINOPHILS # (AUTO) 0.3 x10^3/uL (0.0-0.2); EOSINOPHILS % (AUTO) 1.2 % (0.9-2.9); HEMATOCRIT 34.6 % (36.0-47.0); HEMOGLOBIN 11.1 g/dL (12.0-16.0); LYMPHOCYTES # (AUTO) 1.5 X10^3/uL (1.3-2.9); LYMPHOCYTES % (AUTO) 6.2 % (21.0-51.0); MEAN CORPUSCULAR HEMOGLOBIN 28.7 pg (27.0-34.0); MEAN CORPUSCULAR VOLUME 89.6 fL (80.0-100.0); MEAN PLATELET VOLUME 7.7 fL (7.4-11.0); MONOCYTES # (AUTO) 1.7 x10^3/uL (0.3-0.8); MONOCYTES % (AUTO) 7.1 % (0.0-13.0); NEUTROPHILS # (AUTO) 20.2 x10^3/uL (2.2-4.8); NEUTROPHILS % (AUTO) 85.2 % (42.0-75.0); PLATELET COUNT 539 X10^3/uL (150.0-450.0); RED BLOOD COUNT 3.87 X10^6/uL (3.5-5.4); RED CELL DISTRIBUTION WIDTH 15.6 % (11.6-16.5); WHITE BLOOD COUNT 23.7 X10^3/uL (3.6-10.0)
[2020-08-13 06:54] LABS: ALANINE AMINOTRANSFERASE 25 Units/L (12-78); ALBUMIN 2.6 g/dL (3.4-5.0); ALKALINE PHOSPHATASE 51 Units/L (46-116); ASPARTATE AMINO TRANSFERASE 16 Units/L (15-37); BLOOD UREA NITROGEN 24 mg/dL (7-18); CALCIUM 8.2 mg/dL (8.5-10.1); CARBON DIOXIDE 30.7 mmol/L (21-32); CHLORIDE 101 mmol/L (98-107); COR CA(FOR HYPOALB) 9.3 mg/dL (8.5-10.1); CREATININE 0.78 mg/dL (0.55-1.02); SODIUM 139 mmol/L (136-145); TOTAL PROTEIN 5.5 g/dL (6.4-8.2); eGFR NON BLACK RACES > 60 (>60)
[2020-08-13 07:11] LABS: CKMB % 4.2 % (<4); CREATINE KINASE 24 Units/L (26-192); CREATINE KINASE MB < 1.0 ng/mL (0-4.0); TROPONIN I 0.11 ng/mL (0-1.5)
[2020-08-13 07:14] LABS: PLATELET MORPHOLOGY COMMENT NORMAL (NORMAL)
[2020-08-13] MEDS: NS 1000 ML 1,000 ML IV SCH (08:15)
[2020-08-13] MEDS ORDERED: LEVSIN/MAALOX/LIDOC VISC PO PRN (08:50)
[2020-08-13] MEDS ORDERED: MYLICON TAB 80 MG CHEW PO PRN (08:50)
[2020-08-13] MEDS: NEURONTIN CAP 100 MG PO SCH ×3 (09:31→13:58)
[2020-08-13] MEDS: CARDIZEM CD 360 MG 24-HR PO SCH (09:34)
[2020-08-13] MEDS: CORDARONE TAB 200 MG PO SCH (09:34)
[2020-08-13] MEDS: COLACE CAP 100 MG PO SCH (09:34)
[2020-08-13] MEDS: COREG TAB 25 MG PO SCH (09:34)
[2020-08-13] MEDS: PREDNISONE TAB 10 MG PO SCH (09:35)
[2020-08-13] MEDS: CYMBALTA PO SCH (09:35)
[2020-08-13 09:36] LABS: CKMB % 3.9 % (<4); TROPONIN I 0.11 ng/mL (0-1.5)
[2020-08-13] MEDS: XARELTO PO SCH (09:36)
[2020-08-13] MEDS: HEMOCYTE-PLUS PO SCH (09:37)
[2020-08-13] MEDS: ASPIRIN EC 81 MG PO SCH (09:37)
[2020-08-13] MEDS: PROTONIX INJ 40 MG VIAL IVP SCH (09:40)
[2020-08-13] MEDS: VIBRAMYCIN 100 MG in D5W 250 ML IV 250 ML IV SCH (09:41)
[2020-08-13] MEDS: LASIX IVP SCH (09:41)
[2020-08-13] MEDS ORDERED: TYLENOL 325 MG TAB PO PRN (10:47)
[2020-08-13 12:34] LABS: BILIRUBIN,URINE NEGATIVE (NEGATIVE); BLOOD/HEMOGLOBIN,URINE NEGATIVE (NEGATIVE); GLUCOSE, URINE NEGATIVE (NEGATIVE); KETONES,URINE NEGATIVE (NEGATIVE); LEUKOCYTE ESTERASE ,URINE NEGATIVE (NEGATIVE); NITRITES,URINE NEGATIVE (NEGATIVE); PROTEIN,URINE NEGATIVE (NEGATIVE); UROBILINOGEN,URINE NORMAL (NORMAL)
[2020-08-13 12:36] LABS: APPEARANCE,URINE CLEAR (CLEAR); COLOR,URINE PALE YELLOW (YELLOW)
[2020-08-13] MEDS: NYSTATIN SUSP PO PRN (13:17)
[2020-08-13 13:19] VITALS: BP 112/71
[2020-08-13] MEDS ORDERED: XANAX PO ONE (13:51)
== END 2020-08-13 14:10 | disposition short-term general hospital (02) | DRG 177 ==
LOC: ER 08:58 → MED/SURG 12:08
PROVIDERS: ADMIT Family Medicine; ATTEND Internal Medicine
DX: R79.82 Elevated C-reactive protein (CRP); Z20.822 Contact with and (suspected) exposure to COVID-19; Z79.01 Long term (current) use of anticoagulants; I48.0 Paroxysmal atrial fibrillation; R25.8 Other abnormal involuntary movements; D50.8 Other iron deficiency anemias; E03.8 Other specified hypothyroidism; E86.0 Dehydration; J69.0 Pneumonitis due to inhalation of food and vomit; R94.31 Abnormal electrocardiogram [ECG] [EKG]; K44.9 Diaphragmatic hernia without obstruction or gangrene; N17.8 Other acute kidney failure; R13.11 Dysphagia, oral phase; I50.43 Acute on chronic combined systolic (congestive) and diastolic (congestive) heart failure; M79.10 Myalgia, unspecified site; Z98.890 Other specified postprocedural states; I25.10 Atherosclerotic heart disease of native coronary artery without angina pectoris; R06.02 Shortness of breath; R79.89 Other specified abnormal findings of blood chemistry; R65.11 Systemic inflammatory response syndrome (SIRS) of non-infectious origin with acute organ dysfunction; Z86.16 Personal history of COVID-19

== ENCOUNTER 2021-03-18 14:43 | Inpatient (IN) ==
[2021-03-18] MEDS ORDERED: NORCO 5/325 MG TAB PO PRN (17:18)
[2021-03-18 17:21] LABS: BASOPHILS # (AUTO) 0.1 X10^3/uL (0.0-0.1); BASOPHILS % (AUTO) 0.4 % (0.2-1.0); EOSINOPHILS # (AUTO) 0.2 x10^3/uL (0.0-0.2); EOSINOPHILS % (AUTO) 1.1 % (0.9-2.9); HEMATOCRIT 33.3 % (36.0-47.0); HEMOGLOBIN 11.2 g/dL (12.0-16.0); LYMPHOCYTES # (AUTO) 0.7 X10^3/uL (1.3-2.9); LYMPHOCYTES % (AUTO) 3.6 % (21.0-51.0); MEAN CORPUSCULAR HEMOGLOBIN 29.8 pg (27.0-34.0); MEAN CORPUSCULAR HGB CONC 33.5 g/dL (33.0-35.0); MEAN PLATELET VOLUME 7.3 fL (7.4-11.0); MONOCYTES # (AUTO) 0.8 x10^3/uL (0.3-0.8); MONOCYTES % (AUTO) 4.2 % (0.0-13.0); NEUTROPHILS % (AUTO) 90.7 % (42.0-75.0); PLATELET COUNT 752 X10^3/uL (150.0-450.0); RED BLOOD COUNT 3.75 X10^6/uL (3.5-5.4); RED CELL DISTRIBUTION WIDTH 15.6 % (11.6-16.5); WHITE BLOOD COUNT 19.8 X10^3/uL (3.6-10.0)
--- NOTE | 2021-03-18 17:24 | DR.H&P ---
H&P - History & Physical for Day of: H&P Date: 03/18/21 - Chief Complaint Chief Complaint: abdominal pain with N/V/D, dehydration, kidney "infection""diverticulitis" - History of Present Illness History of Present Illness: PT IS 70 WF DIRECT ADMIT FROM DR PATTERSON OFFICE WITH FAILED OUTPT TREATMENT OF DIVERTICULITIS AND UTI. PT HAD ROCEPHIN INJECTION WITH PO CIPRO X 10DAYS. PT REPORTS WEAKNESS, N/V/D WITH DEHYDRATION. PT HAD HX OF NEWLY DX RA AND TOOK ROUND OF PREDNISONE RESULTING IN INCREASED "STOMACH ISSUES" PT OUTPT LABS REVEALED ANEMIA, AND LOW IRON. PT HAS PMH OF CHF, AFIB, CAD, HTN, AND RA. PT ADMITTED FOR TREATMENT OF ACUTE ILLNESS. - Past Medical History Past Medical History: Anxiety, Arthritis, CHF, Coronary Artery Disease, Dyslipidemia, GERD, Hypertension, Hypothyroidism, Sleep Apnea Additional Medical History: HX AFIB - Past Surgical History Surgical History: Angioplasty/Stents, Cholecystectomy, Hysterectomy - Family History Family Medical History: Diabetes Mellitus - Social History Does patient currently use any type of tobacco product: No Have you used tobacco products in the last 12 months: No Type of Tobacco Use: None Does any household member use tobacco: No Alcohol Use: None Drug Use: None Risks, benefits, and alternatives of opioids discussed: No Prescription drug monitoring program results: PDMP reviewed and no concerns identified - Medications Home Medications: metoclopramide [From Reglan] Allergy (Verified 11/07/20 10:49) Penicillins Allergy (Verified 11/07/20 10:49) Sulfa (Sulfonamide Antibiotics) [SULFA] Allergy (Verified 11/07/20 10:49) - Review of Systems Constitutional: Chills, Weakness, Malaise Eyes: No Symptoms Reported ENT: No Symptoms Reported Respiratory: Shortness of Breath, SOB with Excertion Cardiovascular: Palpitations, Edema Gastrointestinal: Nausea, Vomiting, Abdominal Pain, Diarrhea, Other (MUCOUS IN STOOL) Genitourinary: Dysuria, Frequency Musculoskeletal: Back Pain, Leg Pain Skin: Bruising Neurological: Weakness - Physical Exam Vital Signs: Blood Pressure [Right Arm] 112/71 Blood Pressure [Left Arm] 123/71 Blood Pressure 102/59 Oriented: Normal Eyes: Normal Ear: Normal Nose: Normal Throat: Dry Respiratory: RLL Diminished, LLL Diminished Cardiovascular: Edema : Normal Auscultation: Bowel Sounds: Normal Palpation: Normal Tenderness: LUQ, LLQ, Epigastric Skin: Decreased Turgur, Bruising Musculoskeletal: Right, Left, Back:Thoracic, Back:Lumbar, Tender, Motor Deficit, Sensory Deficit Psychiatric: Anxiety Affect: Anxious Speech Pattern: Clear, Appropriate - Assessment/Plan (1) Acute colitis Status: Acute Plan: ADMIT, IV HYDRATION, PAIN AND NAUSEA CONTROL. STOOL STUDIES. STRICT I&OS, CXR ON ADMISSION. REPEAT UA WITH UC ON ADMISSION. VERIFY HOME MEDICATION, IV CIPRO, PPI THERAPY BID. CE AND EKG ON ADMISSION, VERIFY AND RESUME HOME MEDICATION. OBTAIN LAST EGD/COLONOSCOPY REPORT. CT ABD PELVIS WITH CONTRAST IN AM (2) UTI (urinary tract infection) Qualifiers: Urinary tract infection type: site unspecified Hematuria presence: without hematuria Qualified Code(s): N39.0 - Urinary tract infection, site not specified Status: Acute (3) CHF (congestive heart failure) Status: Acute (4) CAD (coronary artery disease) Status: Acute (5) SOB (shortness of breath) Status: Acute (6) Anemia Qualifiers: Anemia type: unspecified type Qualified Code(s): D64.9 - Anemia, unspecified Status: Acute - Allergies Allergies/Adverse Reactions: Allergies Allergy/AdvReac Type Severity Reaction Status Date / Time metoclopramide [From Reglan] Allergy Verified 11/07/20 10:49 Penicillins Allergy Verified 11/07/20 10:49 Sulfa (Sulfonamide Allergy Verified 11/07/20 10:49 Antibiotics) [SULFA]
[2021-03-18] MEDS ORDERED: LEVSIN/MAALOX/LIDOC VISC PO PRN (17:29)
--- NOTE | 2021-03-18 17:48 | RAD ---
HISTORY:Dyspnea on exertionStudy: Single view chestComparison:08/13/2020Findings:Single portable view submitted with low lung volumes. There is a single lead pacemaker in place. There is central vascular congestion with cardiomegaly. There are increased interstitial markings.No pneumothorax identified.The soft tissues are intact .IMPRESSION:Cardiomegaly with vascular congestion and increased interstitial markings which may reflect interstitial edema.Electronically signed by: JOVANI SUBRAMANIAN (Mar 18, 2021 17:46:21)
[2021-03-18 17:51] LABS: ERYTHROCYTE SEDIMENTATION RATE 89 MM/HOUR (0-20)
[2021-03-18 18:18] LABS: IRON 22 ug/dL (50-175)
[2021-03-18 18:37] LABS: PLATELET MORPHOLOGY COMMENT ABNORMAL (NORMAL)
[2021-03-18 18:38] LABS: TEAR DROP CELLS SLIGHT
[2021-03-18 18:42] VITALS: BMI 25.8
[2021-03-18 19:00] LABS: ALANINE AMINOTRANSFERASE 25 Units/L (12-78); ALBUMIN 2.4 g/dL (3.4-5.0); ALKALINE PHOSPHATASE 80 Units/L (46-116); ASPARTATE AMINO TRANSFERASE 27 Units/L (15-37); BLOOD UREA NITROGEN 17 mg/dL (7-18); CALCIUM 8.3 mg/dL (8.5-10.1); CARBON DIOXIDE 24.8 mmol/L (21-32); CHLORIDE 93 mmol/L (98-107); COR CA(FOR HYPOALB) 9.6 mg/dL (8.5-10.1); CREATINE KINASE 220 Units/L (26-192); CREATININE 1.12 mg/dL (0.55-1.02); MAGNESIUM 1.6 mg/dL (1.7-2.9); SODIUM 131 mmol/L (136-145); TOTAL PROTEIN 6.2 g/dL (6.4-8.2); TROPONIN I 0.27 ng/mL (0-1.5); eGFR NON BLACK RACES 51 (>60)
[2021-03-18] MEDS: AMBIEN PO SCH (20:39)
[2021-03-18 20:51] LABS: CKMB % 2.7 % (<4)
[2021-03-18] MEDS: PROTONIX INJ 40 MG VIAL IVP SCH (20:54)
[2021-03-18] MEDS: ZOFRAN INJ 4 MG VIAL IVP PRN (20:55)
[2021-03-18] MEDS: CIPRO IV 400 MG PREMIX* 400 MG/200 ML IV.SOLN. IV SCH (20:56)
[2021-03-18] MEDS: NS 1000 ML 1,000 ML IV SCH (20:56)
[2021-03-18] MEDS ORDERED: POTASSIUM CHLORIDE LIQ 20 MEQ UDC PO PRN (20:59)
[2021-03-18] MEDS ORDERED: POTASSIUM CHL 40 MEQ/NS 0.45% 500 ML IV PRN (20:59)
[2021-03-18] MEDS ORDERED: POTASSIUM CHL 60 MEQ/NS 0.45% 500 ML IV PRN (20:59)
[2021-03-18] MEDS ORDERED: K-RIDER 10 MEQ/NS 100 ML 10 MEQ/100 ML BAG IV PRN (20:59)
[2021-03-18] MEDS ORDERED: MICRO K EXTEN CAP 10 MEQ PO PRN (20:59)
[2021-03-18] MEDS ORDERED: KLOR-CON PO PRN (20:59)
[2021-03-18] MEDS: K-DUR TAB 20 MEQ PO PRN (23:35)
[2021-03-18] MEDS: MAGNESIUM SULFATE 1 GRAM/100 mL PREMIX 1 G/100 ML BAG IV PRN (23:36)
[2021-03-19] MEDS: MAGNESIUM SULFATE 1 GRAM/100 mL PREMIX 1 G/100 ML BAG IV PRN (00:38)
[2021-03-19 06:13] LABS: BASOPHILS % (AUTO) 0.2 % (0.2-1.0); EOSINOPHILS # (AUTO) 0.3 x10^3/uL (0.0-0.2); EOSINOPHILS % (AUTO) 1.5 % (0.9-2.9); HEMATOCRIT 30.5 % (36.0-47.0); LYMPHOCYTES # (AUTO) 0.6 X10^3/uL (1.3-2.9); LYMPHOCYTES % (AUTO) 3.5 % (21.0-51.0); MEAN CORPUSCULAR HEMOGLOBIN 28.9 pg (27.0-34.0); MEAN CORPUSCULAR HGB CONC 32.7 g/dL (33.0-35.0); MEAN CORPUSCULAR VOLUME 88.4 fL (80.0-100.0); MEAN PLATELET VOLUME 7.6 fL (7.4-11.0); MONOCYTES # (AUTO) 1.2 x10^3/uL (0.3-0.8); NEUTROPHILS # (AUTO) 15.3 x10^3/uL (2.2-4.8); NEUTROPHILS % (AUTO) 87.8 % (42.0-75.0); PLATELET COUNT 669 X10^3/uL (150.0-450.0); RED BLOOD COUNT 3.45 X10^6/uL (3.5-5.4); RED CELL DISTRIBUTION WIDTH 15.5 % (11.6-16.5); WHITE BLOOD COUNT 17.4 X10^3/uL (3.6-10.0)
[2021-03-19 07:02] LABS: ALANINE AMINOTRANSFERASE 19 Units/L (12-78); ALKALINE PHOSPHATASE 66 Units/L (46-116); ASPARTATE AMINO TRANSFERASE 27 Units/L (15-37); BLOOD UREA NITROGEN 17 mg/dL (7-18); CALCIUM 8.4 mg/dL (8.5-10.1); CARBON DIOXIDE 27.2 mmol/L (21-32); CHLORIDE 95 mmol/L (98-107); CKMB % 3.6 % (<4); CREATINE KINASE 126 Units/L (26-192); CREATININE 1.07 mg/dL (0.55-1.02); SODIUM 131 mmol/L (136-145); TOTAL PROTEIN 6.2 g/dL (6.4-8.2); TROPONIN I 0.33 ng/mL (0-1.5); eGFR NON BLACK RACES 54 (>60)
[2021-03-19 07:07] LABS: CREATINE KINASE MB 4.5 ng/mL (0-4.0)
[2021-03-19] MEDS: ZOFRAN INJ 4 MG VIAL IVP PRN ×2 (07:30→21:39)
[2021-03-19] MEDS ORDERED: INFeD or DEXFERRUM 25 MG in NS 100 ML IV 100 ML IV ONE (08:00)
[2021-03-19] MEDS: XARELTO PO SCH (08:14)
[2021-03-19] MEDS: NS 1000 ML 1,000 ML IV SCH ×2 (08:14→21:22)
[2021-03-19] MEDS: CIPRO IV 400 MG PREMIX* 400 MG/200 ML IV.SOLN. IV SCH ×2 (08:44→20:13)
[2021-03-19] MEDS: PROTONIX INJ 40 MG VIAL IVP SCH ×2 (08:45→20:08)
[2021-03-19] MEDS ORDERED: INFeD or DEXFERRUM 975 MG in NS 500 ML IV 500 ML IV ONE (09:00)
[2021-03-19] MEDS: SOLU-Medrol 40 MG VIAL IVP SCH ×3 (09:23→21:23)
[2021-03-19] MEDS: K-DUR TAB 20 MEQ PO SCH ×2 (09:23→21:22)
[2021-03-19] MEDS: LASIX IVP SCH ×3 (09:23→16:51)
[2021-03-19] MEDS: VSL#3 PO SCH (09:24)
--- NOTE | 2021-03-19 13:08 | CT ---
HISTORY:ColitisStudy: CT abdomen and pelvis with contrastComparison:NoneTechnique: Multiple axial images of the abdomen and pelvis were obtained with IV contrast. Oral contrast was administered. Dose reduction techniques including Automated Exposure Control (AEC) and adjustment of mA and kV were utilized.FINDINGS:There is cardiomegaly and a large hiatal hernia with partial intrathoracic stomach. There are ground-glass infiltrates at the lung bases. The liver, spleen, pancreas, and adrenal glands are unremarkable in their CT appearance. Gallbladder is removed.There is excreted contrast in the renal collecting systems. No hydronephrosis. There are simple renal cysts. Ureters appear normal.No free intraperitoneal air. No evidence of intestinal obstruction. The appendix is normal. The descending and rectosigmoid colon appear mildly thickened but also not well distended. Scattered diverticula are present. No ascites or abscess.There are bilateral pars interarticularis defects at L5 with spondylolisthesis. There are discogenic degenerative changes at L4-5 and L5-S1. The vascular structures are unremarkable . No pathologically enlarged lymph nodes are identified.Uterus is removed. Normal urinary bladder.IMPRESSION ABDOMEN/PELVIS:Ground-glass infiltrates at the bilateral lung bases, correlate clinically for pneumonia.Mild thickening of the descending and rectosigmoid colon which could represent mild colitis however these bowel loops are also not well distended. No evidence of obstruction or abscess.Large hiatal hernia with partial intrathoracic stomach.Additional chronic findings as described.Electronically signed by: JOVANI SUBRAMANIAN (Mar 19, 2021 13:06:14)
[2021-03-19] MEDS ORDERED: LOMOTIL PO ONE (16:58)
[2021-03-19] MEDS ORDERED: LOMOTIL PO PRN (16:59)
[2021-03-19] MEDS ORDERED: MAALOX or MYLANTA PO PRN (19:29)
[2021-03-19] MEDS: AMBIEN PO SCH (20:08)
[2021-03-19] MEDS ORDERED: BUTT CREAM (COMPOUND) ONE (21:16)
[2021-03-19] MEDS: NORCO 7.5/325 MG TAB PO PRN (21:38)
[2021-03-19] MEDS ORDERED: BUTT CREAM (COMPOUND) TOP PRN (22:08)
[2021-03-20 06:20] LABS: BASOPHILS % (AUTO) 0.3 % (0.2-1.0); HEMATOCRIT 32.8 % (36.0-47.0); HEMOGLOBIN 10.7 g/dL (12.0-16.0); LYMPHOCYTES # (AUTO) 0.5 X10^3/uL (1.3-2.9); LYMPHOCYTES % (AUTO) 3.4 % (21.0-51.0); MEAN CORPUSCULAR HEMOGLOBIN 29.2 pg (27.0-34.0); MEAN CORPUSCULAR HGB CONC 32.6 g/dL (33.0-35.0); MEAN CORPUSCULAR VOLUME 89.7 fL (80.0-100.0); MEAN PLATELET VOLUME 7.7 fL (7.4-11.0); MONOCYTES # (AUTO) 0.4 x10^3/uL (0.3-0.8); NEUTROPHILS # (AUTO) 13.5 x10^3/uL (2.2-4.8); NEUTROPHILS % (AUTO) 93.3 % (42.0-75.0); PLATELET COUNT 662 X10^3/uL (150.0-450.0); RED BLOOD COUNT 3.65 X10^6/uL (3.5-5.4); RED CELL DISTRIBUTION WIDTH 15.3 % (11.6-16.5); WHITE BLOOD COUNT 14.4 X10^3/uL (3.6-10.0)
[2021-03-20 06:40] LABS: BLOOD UREA NITROGEN 16 mg/dL (7-18); CALCIUM 8.4 mg/dL (8.5-10.1); CARBON DIOXIDE 28.1 mmol/L (21-32); CHLORIDE 97 mmol/L (98-107); COR NA(FOR HYPERGLY) 136 mmol/L (136-145); CREATININE 1.09 mg/dL (0.55-1.02); SODIUM 135 mmol/L (136-145); eGFR NON BLACK RACES 53 (>60)
[2021-03-20 06:50] LABS: PLATELET MORPHOLOGY COMMENT NORMAL (NORMAL)
[2021-03-20] MEDS: PROTONIX INJ 40 MG VIAL IVP SCH ×2 (09:18→20:36)
[2021-03-20] MEDS: LASIX IVP SCH (09:19)
[2021-03-20] MEDS: CIPRO IV 400 MG PREMIX* 400 MG/200 ML IV.SOLN. IV SCH ×2 (09:19→20:36)
[2021-03-20] MEDS: VSL#3 PO SCH (09:20)
[2021-03-20] MEDS: NS 1000 ML 1,000 ML IV SCH (11:57)
[2021-03-20] MEDS: ZOFRAN INJ 4 MG VIAL IVP PRN (11:57)
[2021-03-20] MEDS ORDERED: INFeD or DEXFERRUM 25 MG in NS 100 ML IV 100 ML IV ONE (14:00)
[2021-03-20] MEDS: CYMBALTA PO SCH (14:00)
[2021-03-20] MEDS: SYNTHROID 75 mcg TAB PO SCH (14:00)
[2021-03-20] MEDS: XARELTO PO SCH (14:07)
[2021-03-20] MEDS ORDERED: INFED OR DEXFERRUM IV ONE (15:00)
[2021-03-20] MEDS ORDERED: NS IV ONE (15:00)
[2021-03-20] MEDS: NORCO 7.5/325 MG TAB PO PRN (16:11)
[2021-03-20] MEDS ORDERED: NEURONTIN CAP 300 MG ONE (19:51)
[2021-03-20] MEDS ORDERED: PRAVACHOL PO ONE (19:51)
[2021-03-20] MEDS ORDERED: COREG TAB 25 MG ONE (19:52)
[2021-03-20] MEDS ORDERED: PROTONIX INJ 40 MG VIAL ONE (19:52)
[2021-03-20] MEDS: PRAVACHOL PO SCH (20:34)
[2021-03-20] MEDS: COREG TAB 25 MG PO SCH (20:35)
[2021-03-20] MEDS: NEURONTIN CAP 300 MG PO SCH (20:35)
[2021-03-20] MEDS: AMBIEN PO SCH (20:36)
[2021-03-21] MEDS: NS 1000 ML 1,000 ML IV SCH ×2 (03:59→05:40)
[2021-03-21 05:31] LABS: ABG BASE EXCESS 4.6 mmol/L (-2.0-2.0); ABG HCO3 28.3 mmol/L (22-26)
[2021-03-21 05:32] LABS: ABG ALLEN TEST POS
[2021-03-21 06:16] LABS: BASOPHILS % (AUTO) 0.2 % (0.2-1.0); EOSINOPHILS # (AUTO) 0.1 x10^3/uL (0.0-0.2); EOSINOPHILS % (AUTO) 0.3 % (0.9-2.9); HEMATOCRIT 29.9 % (36.0-47.0); HEMOGLOBIN 9.9 g/dL (12.0-16.0); LYMPHOCYTES # (AUTO) 0.5 X10^3/uL (1.3-2.9); LYMPHOCYTES % (AUTO) 2.1 % (21.0-51.0); MEAN CORPUSCULAR HEMOGLOBIN 29.6 pg (27.0-34.0); MEAN CORPUSCULAR HGB CONC 33.2 g/dL (33.0-35.0); MEAN CORPUSCULAR VOLUME 89.3 fL (80.0-100.0); MEAN PLATELET VOLUME 7.7 fL (7.4-11.0); MONOCYTES # (AUTO) 2.1 x10^3/uL (0.3-0.8); MONOCYTES % (AUTO) 8.2 % (0.0-13.0); NEUTROPHILS # (AUTO) 22.6 x10^3/uL (2.2-4.8); NEUTROPHILS % (AUTO) 89.2 % (42.0-75.0); PLATELET COUNT 699 X10^3/uL (150.0-450.0); RED BLOOD COUNT 3.35 X10^6/uL (3.5-5.4); RED CELL DISTRIBUTION WIDTH 15.7 % (11.6-16.5); WHITE BLOOD COUNT 25.3 X10^3/uL (3.6-10.0)
--- NOTE | 2021-03-21 06:17 | RAD ---
HISTORYSOB hypoxiaSTUDYPortable AP [id number]/05/2021FINDINGSSimilar normal heart size with stable position of single pole pacer. Increasing bilateral confluent airspace disease without evidence for dominant mass, pneumothorax or pleural fluid.IMPRESSIONIncreasing bilateral pulmonary infiltrates consistent with pneumonia and/or pulmonary edema.Electronically signed by: JEAN JOSHUA (Mar 21, 2021 06:15:54)
[2021-03-21 06:35] LABS: ALKALINE PHOSPHATASE 67 Units/L (46-116); BLOOD UREA NITROGEN 15 mg/dL (7-18); CALCIUM 7.9 mg/dL (8.5-10.1); CARBON DIOXIDE 26.4 mmol/L (21-32); CHLORIDE 98 mmol/L (98-107); COR CA(FOR HYPOALB) 9.5 mg/dL (8.5-10.1); CREATININE 1.03 mg/dL (0.55-1.02); SODIUM 134 mmol/L (136-145); TOTAL PROTEIN 5.8 g/dL (6.4-8.2); eGFR NON BLACK RACES 57 (>60)
[2021-03-21 06:54] LABS: BAND NEUTROPHILS % 1 % (0-10); PLATELET MORPHOLOGY COMMENT NORMAL (NORMAL)
[2021-03-21 07:14] LABS: ALANINE AMINOTRANSFERASE 15 Units/L (12-78); ASPARTATE AMINO TRANSFERASE 26 Units/L (15-37)
[2021-03-21] MEDS: ZOFRAN INJ 4 MG VIAL IVP PRN (08:26)
[2021-03-21] MEDS ORDERED: SOLU-Medrol 40 MG VIAL IVP SCH (09:00)
[2021-03-21] MEDS: LASIX IVP ONE ×4 (09:13→10:24)
[2021-03-21 10:01] LABS: BILIRUBIN,URINE NEGATIVE (NEGATIVE); BLOOD/HEMOGLOBIN,URINE 1+ (NEGATIVE); GLUCOSE, URINE NEGATIVE (NEGATIVE); KETONES,URINE NEGATIVE (NEGATIVE); LEUKOCYTE ESTERASE ,URINE NEGATIVE (NEGATIVE); NITRITES,URINE NEGATIVE (NEGATIVE); PROTEIN,URINE NEGATIVE (NEGATIVE); UROBILINOGEN,URINE NORMAL (NORMAL)
[2021-03-21 10:08] LABS: APPEARANCE,URINE CLEAR (CLEAR); COLOR,URINE YELLOW (YELLOW)
[2021-03-21] MEDS: NS + KCL 20 MEQ/L 1,000 ML IV SCH (10:08)
[2021-03-21] MEDS: COREG TAB 25 MG PO SCH ×2 (10:08→21:33)
[2021-03-21] MEDS: CYMBALTA PO SCH (10:08)
[2021-03-21] MEDS: NEURONTIN CAP 300 MG PO SCH ×2 (10:08→21:33)
[2021-03-21 10:09] LABS: BACTERIA,URINE NEGATIVE /HPF (NEGATIVE); COARSE GRANULAR CASTS,URINE FEW /HPF (NEGATIVE); SQUAMOUS EPITHELIAL CELL,UR FEW /HPF (NEGATIVE)
[2021-03-21] MEDS: PROTONIX INJ 40 MG VIAL IVP SCH ×2 (10:09→21:34)
[2021-03-21] MEDS: XARELTO PO SCH (10:09)
[2021-03-21] MEDS: SYNTHROID 75 mcg TAB PO SCH (10:09)
[2021-03-21] MEDS: VSL#3 PO SCH (10:09)
[2021-03-21] MEDS: LASIX IVP SCH ×3 (10:10→16:04)
[2021-03-21] MEDS: CIPRO IV 400 MG PREMIX* 400 MG/200 ML IV.SOLN. IV SCH ×2 (10:18→21:33)
[2021-03-21] MEDS ORDERED: SOLU-Medrol 125 MG VIAL IVP ONE (11:00)
[2021-03-21] MEDS ORDERED: SOLU-Medrol 40 MG VIAL IVP ONE (11:00)
[2021-03-21] MEDS: CARAFATE ORAL SUSP PO SCH ×3 (11:25→21:33)
[2021-03-21] MEDS ORDERED: PHENERGAN TAB 25 MG PO PRN (14:14)
[2021-03-21] MEDS: SOLU-Medrol 40 MG VIAL IVP SCH ×2 (16:04→21:34)
[2021-03-21] MEDS: AMBIEN PO SCH (21:31)
[2021-03-21] MEDS: PRAVACHOL PO SCH (21:34)
[2021-03-21] MEDS: NORCO 7.5/325 MG TAB PO PRN (21:55)
--- NOTE | 2021-03-22 06:19 | RAD ---
HISTORYPneumoniaSTUDYPortable AP [id number]/08/2020FINDINGSCardiac size is unchanged. There is further progression of bilateral confluent airspace disease without evidence for large pleural effusion or definite pneumothorax. Pacing device is unchanged in position.IMPRESSIONIncreasing bilateral pulmonary opacities consistent with progression of pneumonia and/or pulmonary edema.Electronically signed by: JEAN JOSHUA (Mar 22, 2021 06:16:46)
[2021-03-22] MEDS: CARAFATE ORAL SUSP PO SCH ×4 (06:31→21:53)
[2021-03-22 06:57] LABS: BASOPHILS # (AUTO) 0.1 X10^3/uL (0.0-0.1); BASOPHILS % (AUTO) 0.3 % (0.2-1.0); HEMATOCRIT 30.2 % (36.0-47.0); HEMOGLOBIN 9.9 g/dL (12.0-16.0); LYMPHOCYTES # (AUTO) 0.3 X10^3/uL (1.3-2.9); LYMPHOCYTES % (AUTO) 1.2 % (21.0-51.0); MEAN CORPUSCULAR HEMOGLOBIN 29.4 pg (27.0-34.0); MEAN CORPUSCULAR HGB CONC 32.9 g/dL (33.0-35.0); MEAN CORPUSCULAR VOLUME 89.5 fL (80.0-100.0); MEAN PLATELET VOLUME 7.5 fL (7.4-11.0); MONOCYTES # (AUTO) 1.1 x10^3/uL (0.3-0.8); MONOCYTES % (AUTO) 4.2 % (0.0-13.0); NEUTROPHILS # (AUTO) 24.3 x10^3/uL (2.2-4.8); NEUTROPHILS % (AUTO) 94.3 % (42.0-75.0); PLATELET COUNT 517 X10^3/uL (150.0-450.0); RED BLOOD COUNT 3.38 X10^6/uL (3.5-5.4); RED CELL DISTRIBUTION WIDTH 15.5 % (11.6-16.5); WHITE BLOOD COUNT 25.8 X10^3/uL (3.6-10.0)
[2021-03-22 07:06] LABS: ALANINE AMINOTRANSFERASE 19 Units/L (12-78); ALKALINE PHOSPHATASE 66 Units/L (46-116); ASPARTATE AMINO TRANSFERASE 26 Units/L (15-37); BLOOD UREA NITROGEN 19 mg/dL (7-18); CALCIUM 8.1 mg/dL (8.5-10.1); CARBON DIOXIDE 28.1 mmol/L (21-32); CHLORIDE 99 mmol/L (98-107); COR CA(FOR HYPOALB) 9.7 mg/dL (8.5-10.1); COR NA(FOR HYPERGLY) 136 mmol/L (136-145); CREATININE 0.93 mg/dL (0.55-1.02); MAGNESIUM 1.7 mg/dL (1.7-2.9); eGFR NON BLACK RACES > 60 (>60)
[2021-03-22 07:07] LABS: SODIUM 135 mmol/L (136-145)
[2021-03-22 07:29] LABS: BAND NEUTROPHILS % 2 % (0-10)
[2021-03-22 07:32] LABS: PLATELET MORPHOLOGY COMMENT NORMAL (NORMAL)
[2021-03-22] MEDS: COREG TAB 25 MG PO SCH ×2 (10:28→21:54)
[2021-03-22] MEDS: VSL#3 PO SCH (10:28)
[2021-03-22] MEDS: NS + KCL 20 MEQ/L 1,000 ML IV SCH (10:28)
[2021-03-22] MEDS: XARELTO PO SCH (10:28)
[2021-03-22] MEDS: PROTONIX INJ 40 MG VIAL IVP SCH ×2 (10:28→21:54)
[2021-03-22] MEDS: CIPRO IV 400 MG PREMIX* 400 MG/200 ML IV.SOLN. IV SCH ×2 (10:28→21:54)
[2021-03-22] MEDS: MILK OF MAGNESIA PO SCH (10:29)
[2021-03-22] MEDS: CYMBALTA PO SCH (10:29)
[2021-03-22] MEDS: NEURONTIN CAP 300 MG PO SCH ×2 (10:29→21:54)
[2021-03-22] MEDS: SYNTHROID 75 mcg TAB PO SCH (10:29)
[2021-03-22] MEDS: K-DUR TAB 20 MEQ PO PRN (12:52)
[2021-03-22] MEDS ORDERED: LASIX IVP ONE (13:21)
[2021-03-22] MEDS ORDERED: LASIX IVP SCH (14:00)
[2021-03-22] MEDS: MAGNESIUM SULFATE 1 GRAM/100 mL PREMIX 1 G/100 ML BAG IV PRN (14:08)
[2021-03-22] MEDS ORDERED: VALIUM INJ IVP PRN ×2 (16:37→18:16)
[2021-03-22] MEDS ORDERED: VALIUM INJ ONE (16:39)
--- NOTE | 2021-03-22 17:31 | PCM.PROG ---
Progress Note Progress Note for Day of Date of Exam: 03/22/21 Subjective Subjective: Anxious, increased SOB Past Medical Family Social History Past Med/Fam/Surg Hx: No changes since H&P Allergies: Allergies metoclopramide [From Reglan] Allergy (Verified 11/07/20 10:49) Penicillins Allergy (Verified 11/07/20 10:49) Sulfa (Sulfonamide Antibiotics) [SULFA] Allergy (Verified 11/07/20 10:49) Review of Systems ROS: Changes notes (describe) ROS changes noted: anxiety/sob Vital Signs and I&O's Vital Signs: Temperature 98.1 F Pulse Rate [Radial] 75 Respiratory Rate 24 Blood Pressure [Right Arm] 121/58 Blood Pressure [Left Arm] 123/71 Blood Pressure 102/59 O2 Sat by Pulse Oximetry 93 Intake and Output: Intake & Output 03/20/21 03/21/21 03/22/21 03/23/21 11:59 11:59 11:59 11:59 Intake Total 3235 / 3235 2667 / 2667 2923 / 2923 240 / 240 Output Total 200 / 200 2800 / 2800 1000 / 1000 Balance 3235 / 3235 2467 / 2467 123 / 123 -760 / -760 Physical Exam Oriented: Normal Respiratory: Generalized and Rhonchi Cardiovascular: Edema Auscultation: Bowel Sounds: Normal Tenderness: LUQ, LLQ and Epigastric Skin: Decreased Turgur and Bruising Musculoskeletal: Right, Left, Back:Thoracic, Back:Lumbar, Tender, Motor Deficit and Sensory Deficit Psychiatric: Anxiety Affect: Anxious Speech Pattern: Clear and Appropriate Laboratory and Diagnostics Result Diagrams: 03/22/21 06:40 03/22/21 06:40 Labs: 03/21/21 09:50 Urine,Clean Catch Urine Culture - Preliminary 03/19/21 08:10 Stool Stool Culture - Final 03/19/21 08:10 Stool - Final 03/18/21 20:42 Urine,Clean Catch Urine Culture - Final Klebsiella Pneumoniae Laboratory WBC 25.8 X10^3/uL (3.6-10.0) H 03/22/21 06:40 RBC 3.38 X10^6/uL (3.5-5.4) L 03/22/21 06:40 Hgb 9.9 g/dL (12.0-16.0) L 03/22/21 06:40 Hct 30.2 % (36.0-47.0) L 03/22/21 06:40 MCV 89.5 fL (80.0-100.0) 03/22/21 06:40 MCH 29.4 pg (27.0-34.0) 03/22/21 06:40 MCHC 32.9 g/dL (33.0-35.0) L 03/22/21 06:40 RDW 15.5 % (11.6-16.5) 03/22/21 06:40 Plt Count 517 X10^3/uL (150.0-450.0) H 03/22/21 06:40 Plt Count Comment Increased (ADEQUATE) A 03/22/21 06:40 MPV 7.5 fL (7.4-11.0) 03/22/21 06:40 Neut % (Auto) 94.3 % (42.0-75.0) H 03/22/21 06:40 Lymph % (Auto) 1.2 % (21.0-51.0) L 03/22/21 06:40 [place] % (Auto) 4.2 % (0.0-13.0) 03/22/21 06:40 Eos % (Auto) 0.0 % (0.9-2.9) L 03/22/21 06:40 Baso % (Auto) 0.3 % (0.2-1.0) 03/22/21 06:40 Neut # (Auto) 24.3 x10^3/uL (2.2-4.8) H 03/22/21 06:40 Lymph # (Auto) 0.3 X10^3/uL (1.3-2.9) L 03/22/21 06:40 [place] # (Auto) 1.1 x10^3/uL (0.3-0.8) H 03/22/21 06:40 Eos # (Auto) 0.0 x10^3/uL (0.0-0.2) 03/22/21 06:40 Baso # (Auto) 0.1 X10^3/uL (0.0-0.1) 03/22/21 06:40 Absolute Nucleated RBC 0.1 /100WBC 03/22/21 06:40 Total Counted 100 03/22/21 06:40 Neutrophils % (Manual) 88 % (39-76) H 03/22/21 06:40 Band Neutrophils % 2 % (0-10) 03/22/21 06:40 Lymphocytes % (Manual) 3 % (13-43) L 03/22/21 06:40 Monocytes % (Manual) 7 % (4-9) 03/22/21 06:40 Eosinophils % (Manual) 1 % (0-6) 03/21/21 05:39 Plt Morphology Comment Normal (NORMAL) 03/22/21 06:40 RBC Morphology Normal (NORMAL) 03/22/21 06:40 Tear Drop Cells Slight A 03/18/21 17:10 ESR 89 MM/HOUR (0-20) H 03/18/21 17:10 PT 23.5 SECONDS (11.8-14.3) 03/18/21 17:10 INR Target Range - 03/18/21 17:10 INR 2.21 (0.8-1.3) H 03/18/21 17:10 Sample Site Lrad 03/21/21 05:30 ABG pH 7.480 (7.35-7.45) H 03/21/21 05:30 ABG pCO2 38.0 mmHg (35.0-45.0) 03/21/21 05:30 ABG pO2 66.0 mmHg (80.0-100.0) L 03/21/21 05:30 ABG HCO3 28.3 mmol/L (22-26) H 03/21/21 05:30 ABG O2 Saturation 94.0 % (90-100) 03/21/21 05:30 ABG Base Excess 4.6 mmol/L (-2.0-2.0) H 03/21/21 05:30 Parminder Test Pos 03/21/21 05:30 A-a Gradient 600.0 mmHg 03/21/21 05:30 FiO2 100.0 03/21/21 05:30 Blood Gas Comments Xi well mts 03/21/21 05:30 Sodium 135 mmol/L (136-145) L 03/22/21 06:40 Corrected Sodium 136 mmol/L (136-145) 03/22/21 06:40 Potassium 3.5 mmol/L (3.5-5.1) 03/22/21 06:40 Chloride 99 mmol/L (98-107) 03/22/21 06:40 Carbon Dioxide 28.1 mmol/L (21-32) 03/22/21 06:40 BUN 19 mg/dL (7-18) H 03/22/21 06:40 Creatinine 0.93 mg/dL (0.55-1.02) 03/22/21 06:40 Est GFR (MDRD) Af Amer > 60 (>60) 03/22/21 06:40 Est GFR (MDRD) Non-Af > 60 (>60) 03/22/21 06:40 Glucose 135 mg/dL (65-99) H 03/22/21 06:40 Calcium 8.1 mg/dL (8.5-10.1) L 03/22/21 06:40 Corrected Calcium 9.7 mg/dL (8.5-10.1) 03/22/21 06:40 Magnesium 1.7 mg/dL (1.7-2.9) 03/22/21 06:40 Iron 22 ug/dL (50-175) L 03/18/21 19:58 Transferrin 179 mg/dL (202-364) L 03/18/21 19:58 Ferritin 1678 ng/mL (8-252) H 03/18/21 19:58 Total Bilirubin 0.40 mg/dL (0.2-1.0) 03/22/21 06:40 AST 26 Units/L (15-37) 03/22/21 06:40 ALT 19 Units/L (12-78) 03/22/21 06:40 Alkaline Phosphatase 66 Units/L (46-116) 03/22/21 06:40 Creatine Kinase 126 Units/L (26-192) 03/19/21 05:30 CK-MB (CK-2) 4.5 ng/mL (0-4.0) H* 03/19/21 05:30 CK/CKMB % Calc 3.6 % (<4) 03/19/21 05:30 Troponin I 0.33 ng/mL (0-1.5) 03/19/21 05:30 C-Reactive Protein 154.90 mg/L (0-3.0) H 03/18/21 19:58 B-Natriuretic Peptide 783 pg/mL (0-79) H* 03/22/21 06:40 Total Protein 6.0 g/dL (6.4-8.2) L 03/22/21 06:40 Albumin 2.0 g/dL (3.4-5.0) L 03/22/21 06:40 Globulin 4.0 g/dL (2.5-4.5) 03/22/21 06:40 Albumin/Globulin Ratio 0.5 Ratio (1.1-2.1) L 03/22/21 06:40 Vitamin B12 972 pg/mL (193-986) 03/18/21 19:58 Folate 14.1 ng/mL (>8.6) 03/18/21 19:58 Specimen Type Catherized urine 03/21/21 09:50 Urine Color Yellow (YELLOW) 03/21/21 09:50 Urine Appearance Clear (CLEAR) 03/21/21 09:50 Urine pH 6.0 (5.0 - 8.0) 03/21/21 09:50 Ur Specific [place] 1.015 (1.000-1.030) 03/21/21 09:50 Urine Protein Negative (NEGATIVE) 03/21/21 09:50 Urine Glucose (UA) Negative (NEGATIVE) 03/21/21 09:50 Urine Ketones Negative (NEGATIVE) 03/21/21 09:50 Urine Occult Blood 1+ (NEGATIVE) 03/21/21 09:50 Urine Nitrite Negative (NEGATIVE) 03/21/21 09:50 Urine Bilirubin Negative (NEGATIVE) 03/21/21 09:50 Urine Urobilinogen Normal (NORMAL) 03/21/21 09:50 Ur Leukocyte Esterase Negative (NEGATIVE) 03/21/21 09:50 Urine RBC 3-5 /HPF (0-3) A 03/21/21 09:50 Urine WBC 0-2 /HPF (0-5) 03/21/21 09:50 Ur Squamous Epith Cells Few /HPF (NEGATIVE) 03/21/21 09:50 Urine Bacteria Negative /HPF (NEGATIVE) 03/21/21 09:50 Coarse Granular Casts Few /HPF (NEGATIVE) 03/21/21 09:50 Ur Culture Indicated? No/not indicated 03/21/21 09:50 Stool Description 75 gms liquid brown 03/19/21 08:10 Stl Occult Blood (IFOB) Positive (NEGATIVE) A 03/19/21 08:10 Stool for White Cells Positive (NEGATIVE) A 03/19/21 08:10 Stl C. diff Tox B Gene Negative (NEGATIVE) 03/19/21 08:10 Stl C. diff [id number] Presumptive negative (NEGATIVE) 03/19/21 08:10 Stool H. pylori Ag Negative (NEGATIVE) 03/19/21 08:10 SARS-CoV-2 (PCR) Negative (NEGATIVE) 03/18/21 16:48 Influenza Type A (PCR) Negative (NEGATIVE) 03/18/21 16:48 Influenza Type B (PCR) Negative (NEGATIVE) 03/18/21 16:48 RSV (PCR) Negative (NEGATIVE) 03/18/21 16:48 SARS CoV-2 RNA Rapid MIKEY Negative (NEGATIVE) 03/20/21 08:00 Radiology Reviewed: Yes Plan (1) Anxiety: Status: Acute Plan: Valium po/IV (2) Pulmonary edema: Status: Acute (3) Pneumonia: Status: Acute Qualifiers: Laterality: bilateral Lung location: lower lobe of lung Pneumonia type: due to unspecified organism Qualified Code(s): J18.9 - Pneumonia, unspecified organism Plan: Add Fortaz/Blood cultures/Sputum cultures (4) Acute colitis: Status: Acute Plan: ADMIT, IV HYDRATION, PAIN AND NAUSEA CONTROL STOOL STUDIES STRICT I&OS, CXR ON ADMISSION REPEAT UA WITH UC ON ADMISSION VERIFY HOME MEDICATION, IV CIPRO, PPI THERAPY BID CE AND EKG ON ADMISSION, VERIFY AND RESUME HOME MEDICATION OBTAIN LAST EGD/COLONOSCOPY REPORT CT ABD PELVIS WITH CONTRAST IN AM (5) UTI (urinary tract infection): Status: Acute Qualifiers: Hematuria presence: without hematuria Urinary tract infection type: site unspecified Qualified Code(s): N39.0 - Urinary tract infection, site not specified (6) CHF (congestive heart failure): Status: Acute (7) CAD (coronary artery disease): Status: Acute (8) SOB (shortness of breath): Status: Acute (9) Anemia: Status: Acute Qualifiers: Anemia type: unspecified type Qualified Code(s): D64.9 - Anemia, unspecified
[2021-03-22] MEDS ORDERED: DIPRIVAN VIAL 20 ML ONE (18:35)
[2021-03-22] MEDS ORDERED: DIPRIVAN PREMIX 1 GRAM IV 1,000 MG/100 ML VIAL ONE (18:35)
[2021-03-22] MEDS ORDERED: NORCURON INJ 10 MG VIAL ONE ×2 (18:38→19:06)
[2021-03-22] MEDS ORDERED: DIPRIVAN VIAL IVP ONE (18:40)
[2021-03-22] MEDS ORDERED: NORCURON INJ 10 MG VIAL IVP ONE (18:42)
[2021-03-22] MEDS ORDERED: DIPRIVAN PREMIX 500 MG IV 500 MG/50 ML VIAL IV ONE (18:50)
[2021-03-22] MEDS ORDERED: NORCURON INJ 10 MG VIAL 50 MG in NS 50 ML IV 50 ML IV PRN (18:56)
[2021-03-22] MEDS: DIPRIVAN PREMIX 500 MG IV 500 MG/50 ML VIAL IV SCH (19:02)
[2021-03-22] MEDS ORDERED: NS 50 ML IV 50 ML IV ONE (19:02)
[2021-03-22] MEDS: FORTAZ or TAZICEF VIAL INJ 1 G in NS 100 ML IV + SPIKE MINIBAG* 100 ML IV SCH (19:27)
[2021-03-22 19:37] LABS: ABG BASE EXCESS 1.8 mmol/L (-2.0-2.0); ABG HCO3 27.7 mmol/L (22-26)
--- NOTE | 2021-03-22 19:48 | RAD ---
EXAM: CHEST X-RAYHISTORY: ET tube placement verification.TECHNIQUE: AP chest x-ray dated March 22, 2021 at 6:50 PM.COMPARISON: CXR dated March 22, 2021 at 5:07 AM.FINDINGS:There is interval appearance of an ET tube with the distal tip approximately 3.5 cm above the virgen (adequate position).There is a left anterior chest wall subclavian cardiac pacer with a single intact wire to the right ventricle.There is evidence for cardiomegaly. There is stable appearance of severe diffuse bilateral lung parenchymal infiltrates in keeping with CHF and/for acute multilobar pneumonia in the appropriate clinical setting.There is no discernible pleural effusion, or pneumothorax seen. The visualized bony structures are within normal limits.IMPRESSION:1. Interval appearance of an ET tube with the distal tip approximately 3.5 cm above the virgen (adequate position).2. Stable appearance of severe diffuse bilateral lung parenchymal infiltrates in keeping with CHF and/for acute multilobar pneumonia in the appropriate clinical setting.3. Recommend clinical correlation and appropriate follow-up CXR evaluation to ensure interval clearance as clinically warranted.3. Consider follow-up noncontrast chest CT for further assessment as clinically warranted.Electronically signed by: Gricelda Cui (Mar 22, 2021 19:46:28)
[2021-03-22] MEDS: PULMICORT NEB TX 0.5 MG NEB SCH (21:41)
[2021-03-22] MEDS: AMBIEN PO SCH (21:53)
[2021-03-22] MEDS: PRAVACHOL PO SCH (21:54)
[2021-03-22] MEDS: DOPAMINE IV PREMIX 400 MG/250 ML 400 MG/250 ML BAG IV PRN (22:21)
[2021-03-23] MEDS: XOPENEX 1.25 MG/3 ML NEBULE NEB SCH ×2 (00:09→05:51)
[2021-03-23] MEDS ORDERED: LASIX IVP ONE (02:00)
[2021-03-23] MEDS: DOPAMINE IV PREMIX 400 MG/250 ML 400 MG/250 ML BAG IV PRN (02:46)
[2021-03-23 05:07] LABS: ABG ALLEN TEST POS; ABG BASE EXCESS 7.4 mmol/L (-2.0-2.0); ABG HCO3 31.2 mmol/L (22-26)
[2021-03-23] MEDS: FORTAZ or TAZICEF VIAL INJ 1 G in NS 100 ML IV + SPIKE MINIBAG* 100 ML IV SCH (05:52)
[2021-03-23] MEDS: CARAFATE ORAL SUSP PO SCH ×2 (05:52→11:31)
[2021-03-23 06:15] LABS: ALBUMIN 1.7 g/dL (3.4-5.0); CALCIUM 8.1 mg/dL (8.5-10.1); CARBON DIOXIDE 26.1 mmol/L (21-32); COR CA(FOR HYPOALB) 9.9 mg/dL (8.5-10.1); CREATININE 1.16 mg/dL (0.55-1.02); TOTAL PROTEIN 5.6 g/dL (6.4-8.2)
[2021-03-23 06:17] LABS: BASOPHILS % (AUTO) 0.1 % (0.2-1.0); HEMATOCRIT 28.2 % (36.0-47.0); LYMPHOCYTES # (AUTO) 0.4 X10^3/uL (1.3-2.9); LYMPHOCYTES % (AUTO) 0.9 % (21.0-51.0); MEAN CORPUSCULAR HEMOGLOBIN 28.7 pg (27.0-34.0); MEAN CORPUSCULAR HGB CONC 31.9 g/dL (33.0-35.0); MEAN CORPUSCULAR VOLUME 89.9 fL (80.0-100.0); MEAN PLATELET VOLUME 8.1 fL (7.4-11.0); MONOCYTES # (AUTO) 1.5 x10^3/uL (0.3-0.8); MONOCYTES % (AUTO) 2.9 % (0.0-13.0); NEUTROPHILS # (AUTO) 48.2 x10^3/uL (2.2-4.8); NEUTROPHILS % (AUTO) 96.1 % (42.0-75.0); PLATELET COUNT 552 X10^3/uL (150.0-450.0); RED BLOOD COUNT 3.14 X10^6/uL (3.5-5.4); RED CELL DISTRIBUTION WIDTH 15.8 % (11.6-16.5)
[2021-03-23 06:20] LABS: WHITE BLOOD COUNT 50.1 X10^3/uL (3.6-10.0)
[2021-03-23 06:42] LABS: BAND NEUTROPHILS % 3 % (0-10); METAMYELOCYTES % 1
[2021-03-23 06:43] LABS: HYPOCHROMASIA SLIGHT; PLATELET MORPHOLOGY COMMENT NORMAL (NORMAL)
--- NOTE | 2021-03-23 08:06 | RAD ---
HISTORYSOBSTUDYCHEST, 1 [id number]/2021FINDINGSThe cardiomediastinal silhouette is stable. Endotracheal tube unchanged. Left pacer and pacer wire unchanged. Similar bilateral airspace opacities. Similar elevation of the right hemidiaphragm. The bony thorax appears intact. Residual contrast in the colon.IMPRESSIONNo significant change.Electronically signed by: KATYA VELAZQUEZ (Mar 23, 2021 08:04:11)
[2021-03-23] MEDS: PULMICORT NEB TX 0.5 MG NEB SCH (08:26)
[2021-03-23] MEDS ORDERED: LACRI-LUBE S.O.P. AFFEYE SCH (09:00)
[2021-03-23] MEDS: PROTONIX INJ 40 MG VIAL IVP SCH (09:30)
[2021-03-23] MEDS: CIPRO IV 400 MG PREMIX* 400 MG/200 ML IV.SOLN. IV SCH (09:30)
[2021-03-23] MEDS: DIPRIVAN PREMIX 500 MG IV 500 MG/50 ML VIAL IV SCH (09:30)
[2021-03-23] MEDS: CYMBALTA PO SCH (11:24)
[2021-03-23] MEDS: COREG TAB 25 MG PO SCH (11:24)
[2021-03-23] MEDS: NEURONTIN CAP 300 MG PO SCH (11:26)
[2021-03-23] MEDS: NS + KCL 20 MEQ/L 1,000 ML IV SCH ×2 (11:26→11:27)
[2021-03-23] MEDS: MILK OF MAGNESIA PO SCH (11:26)
[2021-03-23] MEDS: SYNTHROID 75 mcg TAB PO SCH (11:27)
[2021-03-23] MEDS: VSL#3 PO SCH (11:28)
[2021-03-23] MEDS: XARELTO PO SCH (11:28)
[2021-03-23 13:44] VITALS: BP 97/49
== END 2021-03-23 12:50 | disposition short-term general hospital (02) | DRG 391 ==
LOC: OBS → OBSVTOIN 16:37 → MED/SURG 18:04
PROVIDERS: ADMIT Internal Medicine; ATTEND Internal Medicine
DX: I50.9 Heart failure, unspecified; F41.8 Other specified anxiety disorders; R06.02 Shortness of breath; I87.2 Venous insufficiency (chronic) (peripheral); R62.7 Adult failure to thrive; R26.89 Other abnormalities of gait and mobility; Z20.822 Contact with and (suspected) exposure to COVID-19; I11.0 Hypertensive heart disease with heart failure; E87.1 Hypo-osmolality and hyponatremia; I25.10 Atherosclerotic heart disease of native coronary artery without angina pectoris; J18.8 Other pneumonia, unspecified organism; K52.89 Other specified noninfective gastroenteritis and colitis; I48.91 Unspecified atrial fibrillation; D50.8 Other iron deficiency anemias; N39.0 Urinary tract infection, site not specified; M06.89 Other specified rheumatoid arthritis, multiple sites; R94.31 Abnormal electrocardiogram [ECG] [EKG]; K44.9 Diaphragmatic hernia without obstruction or gangrene; E86.0 Dehydration; B96.1 Klebsiella pneumoniae [K. pneumoniae] as the cause of diseases classified elsewhere; M62.82 Rhabdomyolysis